=== PATIENT | female | born 1950 | race Two or more races ===

== ENCOUNTER 2019-04-08 16:29 | Emergency (ER) | payer MEDICAID ==
[~2019-04-08] VITALS: Ht 157.5 cm; Wt 68.0 kg
[2019-04-08 16:53] VITALS: BP 130/79
[2019-04-08] MEDS ORDERED: Tylenol #3 tab (300mg/30mg) ORAL ONE (17:00)
[2019-04-08] MEDS ORDERED: Ketorolac 30mg Inj IV ONE (17:00)
[2019-04-08] MEDS ORDERED: Methocarbamol 750mg tab ORAL ONE (17:00)
[2019-04-08] MEDS ORDERED: Gadavist 7.5mMol/7.5ml vial IV PRN (17:00)
[2019-04-08 17:45] LABS: BASOPHILS % (AUTO) 0.9 % (0.0-2.0); EOSINOPHILS % (AUTO) 1.5 % (0.0-3.0); HEMATOCRIT 45.4 % (37.0-47.0); HEMOGLOBIN 14.9 G/DL (12.0-16.0); LYMPHOCYTES % (AUTO) 20.7 % (20.0-45.0); MEAN CORPUSCULAR VOLUME 85 FL (80-99); MONOCYTES % (AUTO) 5.1 % (1.0-10.0); NEUTROPHILS % (AUTO) 71.8 % (45.0-75.0); PLATELET COUNT 347 K/UL (150-450); RED BLOOD COUNT 5.32 M/UL (4.20-5.40); RED CELL DISTRIBUTION WIDTH 11.7 % (11.6-14.8); WHITE BLOOD COUNT 11.9 K/UL (4.8-10.8)
[2019-04-08 18:00] LABS: ANION GAP 14 mmol/L (5-15); BLOOD UREA NITROGEN 19 mg/dL (7-18); CARBON DIOXIDE 27 MMOL/L (21-32); CHLORIDE 104 MMOL/L (98-107); CREATININE 0.9 MG/DL (0.55-1.30); POTASSIUM 3.8 MMOL/L (3.5-5.1); SODIUM 145 MMOL/L (136-145)
[2019-04-08 18:05] LABS: ALANINE AMINOTRANSFERASE 26 U/L (12-78); ALBUMIN 3.9 G/DL (3.4-5.0); ALKALINE PHOSPHATASE 141 U/L (46-116); ASPARTATE AMINO TRANSFERASE 21 U/L (15-37); BILIRUBIN,TOTAL 0.3 MG/DL (0.2-1.0)
--- NOTE | 2019-04-08 18:53 | Diagnostic Imaging Report ---
EXAM: MR Lumbar Spine With Intravenous Contrast CLINICAL HISTORY: PAIN TECHNIQUE: Magnetic resonance images of the lumbar spine with intravenous contrast in multiple planes. COMPARISON: None FINDINGS: Vertebrae: Unremarkable. No acute fracture. Spinal cord: Conus medullaris terminates normally at the level of T12- L1. Normal signal. No abnormal enhancement. Soft tissues: Unremarkable. DISCS/SPINAL CANAL/NEURAL FORAMINA: L1-L2: Disc bulge., Facet degenerative changes, and ligamentum flavum hypertrophy. No significant spinal canal stenosis. No significant neural foraminal stenosis. L2-L3: Disc bulge, facet degenerative changes, and ligamentum flavum hypertrophy. Mild spinal canal stenosis. Mild bilateral neural foraminal stenoses. L3-L4: Disc bulge, facet degenerative changes, and ligamentum flavum hypertrophy. Mild to moderate spinal canal stenosis. Mild bilateral neural foraminal stenoses. L4-L5: Disc bulge, facet degenerative changes, and ligamentum flavum hypertrophy. Moderate spinal canal stenosis. Mild bilateral neural foraminal stenoses. L5-S1: Disc bulge, facet degenerative changes, and ligamentum flavum hypertrophy. Mild spinal canal stenosis. Moderate left and mild right neural foraminal stenoses. IMPRESSION: 1. No acute fracture. 2. Degenerative changes of the spine as described above.
--- NOTE | 2019-04-08 18:59 | Emergency Room Report ---
History of Present Illness General Chief Complaint: Lower Back Pain or Injury Source: Patient Present Illness HPI 68-year-old female with no signal past medical history here complaining of lower back pain x1 week. Patient reports that she was coming down the steps of the ladder as she missed a step and landed wrong fully on her right foot. Denies any fall or injury from the ladder. Denies any head injury or loss of consciousness. Has not taken medication for symptom relief. Reports that ever since this occurred patient has been feeling numbness in her right foot. Rates the pain 10 out of 10 with radiation to right foot. Sitting comfortably with stable vital signs. Denies urinary or bowel incontinence. Denies saddle paresthesia. Denies all other injuries. Allergies: Coded Allergies: No Known Allergies (Unverified , 04/08/19) Patient History Past Medical History: see triage record Past Surgical History: none Pertinent Family History: none Now: No Immunizations: UTD Reviewed Nursing Documentation: PMH: Agreed; PSxH: Agreed Nursing Documentation-PMH Past Medical History: No Stated History Review of Systems All Other Systems: negative except mentioned in HPI Physical Exam Vital Signs Date Time Temp Pulse Resp B/P (MAP) Pulse Ox O2 Delivery O2 Flow Rate FiO2 04/08/19 16:38 97.9 96 17 130/79 (96) 99 Room Air Sp02 EP Interpretation: reviewed, normal General Appearance: no apparent distress, alert, GCS 15, non-toxic Head: normocephalic, atraumatic Eyes: bilateral eye normal inspection, bilateral eye PERRL ENT: hearing grossly normal, normal pharynx, no angioedema, normal voice Neck: full range of motion, supple, no meningismus, supple/symm/no masses Respiratory: chest non-tender, lungs clear, normal breath sounds, no rhonchi, no wheezing, speaking full sentences Cardiovascular #1: normal peripheral pulses, regular rate, rhythm, no edema, no murmur Cardiovascular #2: 2+ dorsalis pedis (R), 2+ dorsalis pedis (L) Gastrointestinal: normal bowel sounds, non tender, soft, non-distended, no guarding, no rebound Genitourinary: no CVA tenderness Musculoskeletal: back normal, normal range of motion, digits/nails normal, no calf tenderness, pelvis stable, gait/station normal, Shira's Sign negative, no lower extremity edema, non-tender Neurologic: alert, motor strength/tone normal, oriented x3, sensory intact, responsive, speech normal Psychiatric: judgement/insight normal, memory normal, mood/affect normal, no suicidal/homicidal ideation Skin: no rash Lymphatic: no adenopathy Medical Decision Making PA Attestation All diagnoses and treatment plans were reviewed and discussed with my supervising physician Dr. Prado Diagnostic Impression: Primary Impression: Lumbar strain ER Course 68-year-old female with no signal past medical history here complaining of lower back pain x1 week. Patient reports that she was coming down the steps of the ladder as she missed a step and landed wrong fully on her right foot. Denies any fall or injury from the ladder. Denies any head injury or loss of consciousness. Has not taken medication for symptom relief. Reports that ever since this occurred patient has been feeling numbness in her right foot. Rates the pain 10 out of 10 with radiation to right foot. Sitting comfortably with stable vital signs. Denies urinary or bowel incontinence. Denies saddle paresthesia. Denies all other injuries. Ddx considered but are not limited to: Lumbar spine sprain, strain, fracture, contusion, neuropathy Vital signs: are WNL, pt. is afebrile H&PE are most consistent with: Lumbar strain ORDERS: Lumbar spine MRI with contrast was ordered to rule out neuropathy as well as disc dislocation and compression on nerve due to patient numbness in foot. CBC, CMP, UA, Motrin, Robaxin, lidocaine patch ER intervention: Toradol, Robaxin, Tylenol 3 DISCHARGE: At this time pt. is stable for d/c to home. Will provide printed patient care instructions, and any necessary prescriptions. Care plan and follow up instructions have been discussed with the patient prior to discharge. Patient to follow-up with primary care provider and possible physical therapy and orthopedic physical therapist. At this time no signs of nerve compression noted. If worsening symptoms return to emergency room CT/MRI/US Diagnostic Results CT/MRI/US Diagnostic Results : Imaging Test Ordered: MRI L-spine with contrast Impression FINDINGS: Vertebrae: Unremarkable. No acute fracture. Spinal cord: Conus medullaris terminates normally at the level of T12-L1. Normal signal. No abnormal enhancement. Soft tissues: Unremarkable. DISCS/SPINAL CANAL/NEURAL FORAMINA: L1-L2: Disc bulge., Facet degenerative changes, and ligamentum flavum hypertrophy. No significant spinal canal stenosis. No significant neural foraminal stenosis. L2-L3: Disc bulge, facet degenerative changes, and ligamentum flavum hypertrophy. Mild spinal canal stenosis. Mild bilateral neural foraminal stenoses. L3-L4: Disc bulge, facet degenerative changes, and ligamentum flavum hypertrophy. Mild to moderate spinal canal stenosis. Mild bilateral neural foraminal stenoses. L4-L5: Disc bulge, facet degenerative changes, and ligamentum flavum hypertrophy. Moderate spinal canal stenosis. Mild bilateral neural foraminal stenoses. L5-S1: Disc bulge, facet degenerative changes, and ligamentum flavum hypertrophy. Mild spinal canal stenosis. Moderate left and mild right neural foraminal stenoses. IMPRESSION: 1. No acute fracture. 2. Degenerative changes of the spine as described above. Last Vital Signs Date Time Temp Pulse Resp B/P (MAP) Pulse Ox O2 Delivery O2 Flow Rate FiO2 04/08/19 16:53 97.9 86 17 130/79 99 Room Air Status: improved Disposition: HOME, SELF-CARE Condition: Stable Scripts Lidocaine Patch* (Lidoderm Patch*) 1 Each Adh..patch 1 PATCH TOPIC DAILY, #30 PATCH Patch(es) may remain in place for up to 12 hours in any 24-hour period. Prov: Abiodun Bennett 04/08/19 Methocarbamol* (ROBAXIN-500*) 500 Mg Tablet 500 MG ORAL TID PRN for For Pain, #15 TAB 0 Refills Prov: Abiodun Bennett 04/08/19 Ibuprofen* (MOTRIN*) 600 Mg Tablet 600 MG ORAL Q8H PRN for For Pain, #30 TAB 0 Refills Prov: Abiodun Bennett 04/08/19 Patient Instructions: Lumbosacral Strain Additional Instructions: Take medication as directed, follow-up with your primary care provider, increase oral hydration, avoid strenuous physical activity, if worsening symptoms return to the emergency room Abiodun Bennett Apr 08, 2019 18:59
[2019-04-08] MEDS ORDERED: IBUPROFEN600 MG ORAL (19:00)
[2019-04-08] MEDS ORDERED: LIDODERM700 M1 TOPIC (19:00)
[2019-04-08] MEDS ORDERED: ROBAXIN-500MG ORAL (19:00)
[2019-04-08 19:15] VITALS: BP 125/85
== END 2019-04-08 19:15 | disposition home or self-care (01) ==
LOC: EMR 16:55
DX: S39.012A Strain of muscle, fascia and tendon of lower back, initial encounter (principal); W10.9XXA Fall (on) (from) unspecified stairs and steps, initial encounter; Y92.9 Unspecified place or not applicable; R20.2 Paresthesia of skin
CPT/HCPCS: 36415; 72149; 80053; 85025; 96374; A9585; J1885; Z7502; 99284

== ENCOUNTER 2020-01-23 10:31 | Emergency (ER) | payer MEDICAID ==
[~2020-01-23] VITALS: Ht 165.1 cm; Wt 63.5 kg
[~2020-01-23 10:31] MED LIST: IBUPROFEN600 MG ORAL; LIDODERM700 M1 TOPIC; ROBAXIN-500MG ORAL
[2020-01-23 10:40] VITALS: BP 134/72
[2020-01-23] MEDS ORDERED: Meclizine 25mg tab ORAL PRN (11:00)
--- NOTE | 2020-01-23 11:15 | NUR ---
ED Nurse Note: PT. AAOX 4 AMBULATORY. PT. WALKED IN TO ER FROM HOME. PER PT., SHE WOKE UP 2AM TODAY AND STARTED GETTING DIZZY SOON SHE TRIED STANDING UP FAST ON HER WAY TO BATHROOM. PT. DENIES CP OR ANY PAIN BUT FELT PRESSURE ON THE R SIDE OF HER HEAD.
--- NOTE | 2020-01-23 11:24 | NUR ---
ED Nurse Note: PT. WAS MEDICATED AND LIGHT IN THE ROOM TURNED OFF TO LESSEN ENVIRONMENTAL STIMILUS. NO S/S OF ACUTE DISTRESS NOTED AT THIS TIME.
--- NOTE | 2020-01-23 11:30 | NUR ---
ED Nurse Note:blood sent to labs
[2020-01-23 11:48] LABS: BASOPHILS % (AUTO) 1.1 % (0.0-2.0); EOSINOPHILS % (AUTO) 0.1 % (0.0-3.0); HEMATOCRIT 42.3 % (37.0-47.0); HEMOGLOBIN 14.4 G/DL (12.0-16.0); LYMPHOCYTES % (AUTO) 11.5 % (20.0-45.0); MEAN CORPUSCULAR VOLUME 84 FL (80-99); NEUTROPHILS % (AUTO) 82.4 % (45.0-75.0); PLATELET COUNT 273 K/UL (150-450); RED BLOOD COUNT 5.03 M/UL (4.20-5.40); RED CELL DISTRIBUTION WIDTH 13.9 % (11.6-14.8); WHITE BLOOD COUNT 8.9 K/UL (4.8-10.8)
[2020-01-23 12:00] LABS: ANION GAP 5 mmol/L (5-15); BLOOD UREA NITROGEN 13 mg/dL (7-18); CALCIUM 9.4 MG/DL (8.5-10.1); CARBON DIOXIDE 32 MMOL/L (21-32); CHLORIDE 104 MMOL/L (98-107); CREATININE 0.8 MG/DL (0.55-1.30); SODIUM 141 MMOL/L (136-145)
[2020-01-23 12:05] LABS: ALANINE AMINOTRANSFERASE 26 U/L (12-78); ALBUMIN 3.8 G/DL (3.4-5.0); ALKALINE PHOSPHATASE 115 U/L (46-116); ASPARTATE AMINO TRANSFERASE 22 U/L (15-37); BILIRUBIN,TOTAL 0.8 MG/DL (0.2-1.0)
[2020-01-23] MEDS ORDERED: MECLIZINE HCL25 MG ORAL (12:12)
--- NOTE | 2020-01-23 12:13 | Emergency Room Report ---
History of Present Illness General Chief Complaint: Dizziness Source: Patient Present Illness HPI Disclaimer: Please note that this report is being documented using [employer] technology. This can lead to erroneous entry secondary to incorrect interpretation by the dictating instrument. HPI: History of hyperlipidemia presenting for evaluation of dizziness. Patient states while getting up from a seated position she turned her head to the right and had a sudden onset severe spinning sensation. She felt as if everything was moving to the right side. Symptoms were intense in onset and then gradually resolved over 10 minutes. She had 2 similar episodes today. She denies significant headache. She denies head trauma. The symptoms appear to be triggered by head motion and position. Denies loss of hearing but reports intermittent tinnitus in the right ear. Denies ear pain or drainage. Denies chest pain, palpitations, near syncope, nausea, vomiting, diarrhea or recent changes in her health. States she has had vertigo in the past but did not seek medical attention at this time and has not happened for several years. Symptoms are currently resolved and patient has no complaints at this time. PMH: Hyperlipidemia PSH: Reviewed Allergies: Denied Social Hx: Denies drug or alcohol use Allergies: Coded Allergies: No Known Allergies (Unverified , 04/08/19) COVID-19 Screening Contact w/high risk pt: No Experienced COVID-19 symptoms?: No COVID-19 Testing performed HVAC SERVICE TECHNICIAN: No Review of Systems All Other Systems: negative except mentioned in HPI Physical Exam Vital Signs Date Time Temp Pulse Resp B/P (MAP) Pulse Ox O2 Delivery O2 Flow Rate FiO2 01/23/20 10:40 97.9 78 18 134/72 (92) 98 Room Air General: Awake and alert, no acute distress HEENT: NC/AT. EOMI. PERRLA. External auditory canals unremarkable. Tympanic membranes are pearly quinteros, nonbulging, nonerythematous, no effusions. No vertical or horizontal nystagmus. Cardiovascular: RRR. S1 and S2 normal. No murmur appreciated Resp: Normal work of breathing. No cough, wheezing or crackles appreciated Abdomen: Abdomen is soft, nondistended. Nontender Skin: Intact. No abrasions, laceration or rash over the exposed skin MSK: Normal tone and bulk. Moving all extremities. No obvious deformity. Neuro: Awake and alert. Mentating appropriately. Medical Decision Making Diagnostic Impression: Primary Impression: Vertigo ER Course Is a 69-year-old female presenting for evaluation of sudden onset spinning sensation. Differential includes was not limited to peripheral vertigo, central vertigo, Mnire's disease, otitis media, electrolyte abnormality, ACS, dehydration, space-occupying mass among others. Most consistent with BPPV or Mnire's disease. Less clinical concern for central lesion given the patient's unremarkable neurologic exam, sudden onset of symptoms and overall well appearance without headaches or other changes in mental neuro status. Otherwise neurologically intact. Labs have returned within normal limits. The patient was treated with meclizine and is feeling well. Will continue on meclizine as outpatient basis and have her follow-up with her PMD. She had an appointment to follow-up with PMD in March but I strongly encouraged her to call for sooner appointment. Encouraged her to return to the emergency department new or worsening symptoms. She understands and agrees with this treatment plan. Laboratory Tests Test 01/23/20 11:07 White Blood Count 8.9 K/UL (4.8-10.8) Red Blood Count 5.03 M/UL (4.20-5.40) Hemoglobin 14.4 G/DL (12.0-16.0) Hematocrit 42.3 % (37.0-47.0) Mean Corpuscular Volume 84 FL (80-99) Mean Corpuscular Hemoglobin 28.6 PG (27.0-31.0) Mean Corpuscular Hemoglobin Concent 34.0 G/DL (32.0-36.0) Red Cell Distribution Width 13.9 % (11.6-14.8) Platelet Count 273 K/UL (150-450) Mean Platelet Volume 7.3 FL (6.5-10.1) Neutrophils (%) (Auto) 82.4 % (45.0-75.0) H Lymphocytes (%) (Auto) 11.5 % (20.0-45.0) L Monocytes (%) (Auto) 5.0 % (1.0-10.0) Eosinophils (%) (Auto) 0.1 % (0.0-3.0) Basophils (%) (Auto) 1.1 % (0.0-2.0) Sodium Level 141 MMOL/L (136-145) Potassium Level 4.0 MMOL/L (3.5-5.1) Chloride Level 104 MMOL/L (98-107) Carbon Dioxide Level 32 MMOL/L (21-32) Anion Gap 5 mmol/L (5-15) Blood Urea Nitrogen 13 mg/dL (7-18) Creatinine 0.8 MG/DL (0.55-1.30) Estimated Glomerular Filtration Rate > 60 mL/min (>60) Glucose Level 133 MG/DL (74-106) H Calcium Level 9.4 MG/DL (8.5-10.1) Total Bilirubin 0.8 MG/DL (0.2-1.0) Aspartate Amino Transferase (AST) 22 U/L (15-37) Alanine Aminotransferase (ALT) 26 U/L (12-78) Alkaline Phosphatase 115 U/L (46-116) Troponin I 0.005 ng/mL (0.000-0.056) Total Protein 7.6 G/DL (6.4-8.2) Albumin 3.8 G/DL (3.4-5.0) Globulin 3.8 g/dL Albumin/Globulin Ratio 1.0 (1.0-2.7) EKG Diagnostic Results Troponin ordered: Yes When was troponin ordered?: Jan 23, 2020 EKG Time: 10:55 Rate: normal Rhythm: NSR ST Segments: no acute changes Other Impression Sinus rhythm, normal axis, normal intervals, no ST segment changes. Rhythm Strip Diag. Results Rhythm Strip Time: 10:55 EP Interpretation: yes Rate: 70s Rhythm: NSR, no PVC's, no ectopy Last Vital Signs Date Time Temp Pulse Resp B/P (MAP) Pulse Ox O2 Delivery O2 Flow Rate FiO2 01/23/20 10:40 78 18 Room Air 01/23/20 10:40 97.9 134/72 98 Disposition: HOME, SELF-CARE Condition: Stable Scripts Meclizine Hcl* (MECLIZINE*) 25 Mg Tablet 25 MG ORAL THREE TIMES A DAY PRN for for dizziness for 5 Days, #20 TAB Prov: Umberto Ovalles MD 01/23/20 Referrals: [facility] Patient Instructions: Vertigo, Meniere Disease Additional Instructions: Please follow-up with your primary care doctor in the next 1 to 3 days to discuss this emergency department visit and for reevaluation. If you have any new or worsening symptoms please return to the emergency department for reevaluation. Please note that this report is being documented using [employer] technology. This can lead to erroneous entry secondary to incorrect interpretation by the dictating instrument. Umberto Ovalles MD Jan 23, 2020 12:13
[2020-01-23 12:30] VITALS: BP 134/72
--- NOTE | 2020-01-23 12:30 | NUR ---
ED Nurse Note: Pt cleared by health care Provider for discharge. DC instructions/prescription was given and explained to pt and verbalized understanding of teachings. All medical deviecs such as ID band removed. Pt is AAO x4, ambulatory and left with all personal belongings.
== END 2020-01-23 12:30 | disposition home or self-care (01) ==
LOC: EMR 10:55
DX: R42 Dizziness and giddiness (principal); E78.5 Hyperlipidemia, unspecified
CPT/HCPCS: 36415; 80053; 84484; 85025; 93005; Z7502; 99284

== ENCOUNTER 2020-03-25 15:33 | Inpatient (IN) | payer MEDICAID ==
[~2020-03-25] VITALS: Ht 162.6 cm; Wt 65.8 kg
[~2020-03-25 15:33] MED LIST changes: +Enoxaparin 60mg Inj SUBQ SCH; +MECLIZINE HCL25 MG ORAL
--- NOTE | 2020-03-25 16:04 | Emergency Room Report ---
History of Present Illness General Chief Complaint: Pain Source: Patient Present Illness HPI Disclaimer: Please note that this report is being documented using [employer] technology. This can lead to erroneous entry secondary to incorrect interpretation by the dictating instrument. HPI: 69-year-old female with no reported medical history presents for evaluation of decreased appetite and back pain. Patient states she had a large cyst removed from her back many years ago and has pain in the right mid scapular region starting yesterday afternoon. Feels tight and cramping. Exacerbated by bending and twisting motion and moving her arms. No trauma reported. Denies pain in the middle of the back, weakness, numbness, tingling, urinary retention, fecal incontinence. Denies fever or chills. Reports cough and recent exposure to sick people in her building. Reports loss of taste and smell. Reports decreased appetite and mild diarrhea. Reports nausea but no vomiting. Denies chest pain or palpitations. No recent Covid test. PMH: Denied PSH: Cyst removal Allergies: Reviewed Social Hx: Non-smoker Allergies: Coded Allergies: No Known Allergies (Unverified , 04/08/19) COVID-19 Screening Contact w/high risk pt: Yes Experienced COVID-19 symptoms?: Yes COVID-19 Testing performed SOCIOLOGY TEACHER: No Nursing Documentation-PMH Past Medical History: No Stated History Review of Systems All Other Systems: negative except mentioned in HPI Physical Exam Vital Signs Date Time Temp Pulse Resp B/P (MAP) Pulse Ox O2 Delivery O2 Flow Rate FiO2 03/25/20 15:39 100.8 125 24 132/68 (89) 90 Room Air General: Awake and alert, no acute distress, mild fever, anxious appearing HEENT: NC/AT. EOMI. dry mucous membranes. Cardiovascular: Tachycardic. S1 and S2 normal. No murmur appreciated Resp: Normal work of breathing. No cough or wheezing during exam. Mild crackles bilaterally. Abdomen: Abdomen is soft, nondistended. Nontender Skin: Intact. No abrasions, laceration or rash over the exposed skin MSK: Normal tone and bulk. Moving all extremities. No obvious deformity. Neuro: Awake and alert. Mentating appropriately. Procedures Critical Care Time Critical Care Time Total critical care time: Approximately 45 minutes Due to a high probability of clinically significant, life threatening deterioration, the patient required the highest level of preparedness to intervene emergently and I personally spent this critical care time directly and personally managing the patient. This critical care time included obtaining a history, examining the patient, pulse oximetry, ordering and reviewing studies, ordering treatments, evaluating response to treatment and updating management plan as needed, frequent reassessment and discussion with other providers as well as arranging for ultimate disposition. This critical to care time was performed to assess and manage the high probability of life-threatening deterioration that could result in multiorgan failure. This critical care time is separate from the separately billable procedures and treating other patients. Medical Decision Making Diagnostic Impression: Primary Impression: Pneumonia Additional Impressions: Suspected 2019 novel coronavirus infection Elevated d-dimer Pulmonary embolism Thyroid nodule ER Course 69-year-old female presents for evaluation of loss of taste and smell, cough, myalgias and weakness. Concern for viral syndrome, pneumonia, COVID-19 infection, dehydration, gastritis among others. Chest x-ray concerning for righ t lower lobe pneumonia. Inflammatory markers elevated. Covid swab sent will not be today. D-dimer elevated and patient given Lovenox. Given ceftriaxone azithromycin. Patient be admitted to panel physician, Dr. Moore. CTA noted to show right segmental pulmonary embolism extending to the subsegmental pulmonary arteries. No heart strain noted. Also some airspace disease in the right base noted as well as bilateral thyroid nodules Laboratory Tests Test 03/25/20 16:00 03/25/20 16:24 Urine Color Yellow Urine Appearance Slightly cloudy Urine pH 6.5 (4.5-8.0) Urine Specific Coleman 1.010 (1.005-1.035) Urine Protein 1+ (NEGATIVE) H Urine Glucose (UA) 3+ (NEGATIVE) H Urine Ketones Negative (NEGATIVE) Urine Blood 2+ (NEGATIVE) H Urine Nitrite Negative (NEGATIVE) Urine Bilirubin Negative (NEGATIVE) Urine Urobilinogen 1 MG/DL (0.0-1.0) H Urine Leukocyte Esterase Negative (NEGATIVE) Urine RBC 5-10 /HPF (0 - 2) H Urine WBC 0-2 /HPF (0 - 2) Urine Squamous Epithelial Cells Many /LPF (NONE/OCC) H Urine Bacteria Few /HPF (NONE) Urine Yeast Few /HPF (NONE) H White Blood Count 16.9 K/UL (4.8-10.8) H Red Blood Count 4.84 M/UL (4.20-5.40) Hemoglobin 13.3 G/DL (12.0-16.0) Hematocrit 41.1 % (37.0-47.0) Mean Corpuscular Volume 85 FL (80-99) Mean Corpuscular Hemoglobin 27.4 PG (27.0-31.0) Mean Corpuscular Hemoglobin Concent 32.3 G/DL (32.0-36.0) Red Cell Distribution Width 12.3 % (11.6-14.8) Platelet Count 356 K/UL (150-450) Mean Platelet Volume 6.4 FL (6.5-10.1) L Neutrophils (%) (Auto) 82.9 % (45.0-75.0) H Lymphocytes (%) (Auto) 7.6 % (20.0-45.0) L Monocytes (%) (Auto) 8.5 % (1.0-10.0) Eosinophils (%) (Auto) 0.1 % (0.0-3.0) Basophils (%) (Auto) 0.9 % (0.0-2.0) Prothrombin Time 12.3 SEC (9.30-11.50) H Prothrombin Time INR 1.1 (0.9-1.1) Activated Partial Thromboplast Time 33 SEC (23-33) D-Dimer 14.26 mg/L FEU (0.00-0.49) H Sodium Level 138 MMOL/L (136-145) Potassium Level 3.7 MMOL/L (3.5-5.1) Chloride Level 100 MMOL/L (98-107) Carbon Dioxide Level 31 MMOL/L (21-32) Anion Gap 7 mmol/L (5-15) Blood Urea Nitrogen 10 mg/dL (7-18) Creatinine 0.9 MG/DL (0.55-1.30) Estimated Glomerular Filtration Rate > 60 mL/min (>60) Glucose Level 148 MG/DL (74-106) H Lactic Acid Level Pending Calcium Level 9.5 MG/DL (8.5-10.1) Phosphorus Level 2.9 MG/DL (2.5-4.9) Magnesium Level 2.1 MG/DL (1.8-2.4) Ferritin 565 NG/ML (8-388) H Total Bilirubin 1.1 MG/DL (0.2-1.0) H Direct Bilirubin 0.2 MG/DL (0.0-0.3) Aspartate Amino Transferase (AST) 31 U/L (15-37) Alanine Aminotransferase (ALT) 33 U/L (12-78) Alkaline Phosphatase 91 U/L (46-116) Lactate Dehydrogenase 284 U/L (81-234) H Total Creatine Kinase 50 U/L (26-308) Creatine Kinase MB < 0.5 NG/ML (0.0-3.6) Creatine Kinase MB Relative Index 1.0 Troponin I 0.000 ng/mL (0.000-0.056) C-Reactive Protein, Quantitative 21.5 mg/dL (0.00-0.90) H Pro-B-Type Natriuretic Peptide 129 pg/mL (0-125) H Total Protein 7.7 G/DL (6.4-8.2) Albumin 2.9 G/DL (3.4-5.0) L Globulin 4.8 g/dL Albumin/Globulin Ratio 0.6 (1.0-2.7) L Lipase 83 U/L (73-393) EKG Diagnostic Results Troponin ordered: Yes When was troponin ordered?: Mar 25, 2020 EKG Time: 19:25 Rate: normal Rhythm: NSR ST Segments: no acute changes Other Impression Sinus rhythm, normal axis, normal intervals, no ST segment changes. Rhythm Strip Diag. Results Rhythm Strip Time: 19:25 EP Interpretation: yes Rate: 90s Rhythm: NSR, no PVC's, no ectopy Chest X-Ray Diagnostic Results Chest X-Ray Diagnostic Results : Chest X-Ray Ordered: Yes # of Views/Limited/Complete: 1 View Indication: Chest Pain EP Interpretation: Yes Interpretation: no effusion, no pneumothorax, other - Right lower lobe pneumonia Impression: Other - Right lower lobe pneumonia Electronically Signed by: Electronically signed by Dr. Umberto Ovalles MD Last Vital Signs Date Time Temp Pulse Resp B/P (MAP) Pulse Ox O2 Delivery O2 Flow Rate FiO2 03/25/20 15:39 100.8 125 24 132/68 (89) 90 Room Air Disposition: ADMITTED INPATIENT Condition: Serious Umberto Ovalles MD Mar 25, 2020 16:04
[2020-03-25] MEDS ORDERED: Acetaminophen 500mg (ES) tab ORAL ONE (16:15)
[2020-03-25] MEDS ORDERED: cefTRIAXone 1 GM in NS 55 ML IV ONE (16:30)
[2020-03-25] MEDS ORDERED: Azithromycin 500 MG in NS 275 ML IVPB ONE (16:30)
--- NOTE | 2020-03-25 16:30 | Diagnostic Imaging Report ---
EXAM: XR Chest, 1 View CLINICAL HISTORY: SOB TECHNIQUE: Frontal view of the chest. COMPARISON: No relevant prior studies available. FINDINGS: Lungs: Opacification of the right costophrenic angle. Pleural space: Obscuration and elevation of the right greater than left costophrenic angles. No pneumothorax. Heart: Unremarkable. No cardiomegaly. Mediastinum: Unremarkable. Bones/joints: Unremarkable. IMPRESSION: Obscuration of the right greater than left costophrenic angles representing small pleural effusion and/or atelectasis. Underlying infectious process is not definitely excluded. Recommend clinical correlation.
--- NOTE | 2020-03-25 16:40 | NUR ---
ED Nurse Note: pt labs drawn & sent, IV started, pt urine sent, pt medication with fluids infusing. moved from OB to room 8 for monitoring. primary rn now sonido.
[2020-03-25 16:44] LABS: APPEARANCE,URINE SLIGHTLY CLOUDY; BILIRUBIN, URINE NEGATIVE (NEGATIVE); GLUCOSE, URINE (UA) 3+ (NEGATIVE); KETONES,URINE NEGATIVE (NEGATIVE); LEUKOCYTE ESTERASE ,URINE NEGATIVE (NEGATIVE); NITRITE,URINE NEGATIVE (NEGATIVE); PH,URINE 6.5 (4.5-8.0); PROTEIN,URINE 1+ (NEGATIVE); UROBILINOGEN,URINE 1 MG/DL (0.0-1.0)
[2020-03-25 16:45] LABS: BASOPHILS % (AUTO) 0.9 % (0.0-2.0); EOSINOPHILS % (AUTO) 0.1 % (0.0-3.0); HEMATOCRIT 41.1 % (37.0-47.0); HEMOGLOBIN 13.3 G/DL (12.0-16.0); LYMPHOCYTES % (AUTO) 7.6 % (20.0-45.0); MEAN CORPUSCULAR VOLUME 85 FL (80-99); MONOCYTES % (AUTO) 8.5 % (1.0-10.0); NEUTROPHILS % (AUTO) 82.9 % (45.0-75.0); PLATELET COUNT 356 K/UL (150-450); RED BLOOD COUNT 4.84 M/UL (4.20-5.40); RED CELL DISTRIBUTION WIDTH 12.3 % (11.6-14.8); WHITE BLOOD COUNT 16.9 K/UL (4.8-10.8)
[2020-03-25 16:47] LABS: COLOR,URINE YELLOW
[2020-03-25 16:52] LABS: INR 1.1 (0.9-1.1)
[2020-03-25 16:59] LABS: ANION GAP 7 mmol/L (5-15); BLOOD UREA NITROGEN 10 mg/dL (7-18); CALCIUM 9.5 MG/DL (8.5-10.1); CARBON DIOXIDE 31 MMOL/L (21-32); CHLORIDE 100 MMOL/L (98-107); CREATININE 0.9 MG/DL (0.55-1.30); POTASSIUM 3.7 MMOL/L (3.5-5.1); SODIUM 138 MMOL/L (136-145)
[2020-03-25 17:09] LABS: ALANINE AMINOTRANSFERASE 33 U/L (12-78); ALBUMIN 2.9 G/DL (3.4-5.0); ALBUMIN/GLOBULIN RATIO 0.6 (1.0-2.7); ALKALINE PHOSPHATASE 91 U/L (46-116); ASPARTATE AMINO TRANSFERASE 31 U/L (15-37); BILIRUBIN,TOTAL 1.1 MG/DL (0.2-1.0)
[2020-03-25 17:15] LABS: BILIRUBIN,DIRECT 0.2 MG/DL (0.0-0.3); CKMB < 0.5 NG/ML (0.0-3.6); CREATINE KINASE 50 U/L (26-308); FERRITIN 565 NG/ML (8-388); LACTATE DEHYDROGENASE 284 U/L (81-234); PHOSPHORUS 2.9 MG/DL (2.5-4.9)
[2020-03-25] MEDS ORDERED: Enoxaparin 40mg Inj SUBQ ONE (17:30)
--- NOTE | 2020-03-25 19:00 | NUR ---
ED Nurse Note: rcvd pt from primary nurse. pt had not been administered antibiotics as of yet. pt resting comfortably on stretcher, vs wnl. pt on 2L NC. pt states she only has mild discomfort due to stretcher and rates it 2/10. Pt daughter wanted to know why pt was receiving meds and with pts consent, explained to daughter what was going on with her mother. will continue to monitor pt. belongings list complete
--- NOTE | 2020-03-25 19:10 | NUR ---
ED Nurse Note:went into pt's room to give antibiotics for her nurse. asked pt if she had any allergies and pt said no she didn't think so. informed pt that she has on her medical chart that she has NKDA. pt stated that she would call her daughter and ask her. daughter on the phone, asking multiple questions in regards to medications. spelled each antibiotic so she could look them up. daughter stated that her mother didn't have any allergies that she knew of. daughter asking specific questions in regards to pt. informed daughter that this RN was administering meds for pt's nurse. daughter stated to not give pt any medications until her mom's nurse calls and updates her on her status. reported conversation with RONAL and he stated okay.
[2020-03-25] MEDS ORDERED: Omnipaque 350 100ml vial INJ PRN (20:00)
--- NOTE | 2020-03-25 20:43 | Diagnostic Imaging Report ---
EXAM: CT Angiography Chest With Intravenous Contrast CLINICAL HISTORY: PE TECHNIQUE: Axial computed tomographic angiography images of the chest with intravenous contrast. CTDI is 31.30 mGy and DLP is 145.60 mGy-cm. One or more of the following dose reduction techniques were used: automated exposure control, adjustment of the mA and/or kV according to patient size, use of iterative reconstruction technique. MIP reconstructed images were created and reviewed. Coronal and sagittal reformatted images were created and reviewed. COMPARISON: Chest radiograph dated 03/25/2020. FINDINGS: Pulmonary arteries: Right-sided pulmonary emboli are present. There is a large pulmonary embolism within the posterior basal segmental arteries extending into the subsegmental pulmonary arteries. Consolidation of the left lung base, likely sequela of ischemia from pulmonary embolus. Aorta: No acute findings. No thoracic aortic aneurysm. Lungs: Left lung base atelectasis. No mass. Pleural space: Unremarkable. No significant effusion. No pneumothorax. Heart: Unremarkable. No cardiomegaly. No significant pericardial effusion. No evidence of RV dysfunction. Thyroid: 10 mm nodule of the right thyroid lobe. 5 mm nodule of the left thyroid lobe. Bones/joints: Endplate exam changes of the visualized spine. No acute fracture. No dislocation. Soft tissues: Unremarkable. Lymph nodes: Unremarkable. No enlarged lymph nodes. IMPRESSION: 1. Right posterior basal segmental pulmonary embolism extending into the subsegmental pulmonary arteries. No evidence of right heart strain. 2. Right lung base airspace opacities likely sequela of ischemia from pulmonary embolism. 3. Left lung base atelectasis. Underlying concomitant infectious process is not definitively excluded. 4. Bilateral thyroid nodules. Consider nonemergent thyroid ultrasound for further evaluation. <MYCVCSECTION> Communications: 03/25/20 20:56 Call Doctor Regarding Pulmonary Embolism, called Dr. Ovalles on 03/25 20:56 (-08:00)
[2020-03-25 22:59] VITALS: BP 116/68
--- NOTE | 2020-03-25 23:05 | NUR ---
TRANSFER TO FLOOR: pt A&Ox3, vs wnl, breathing without complications on 2LNC. pt c/o discomfort at 2/10 in lower back. report given to AARON Harris. Patient transferred to [facility] as ordered, per ED MD . Report given to AARON Harris. Belongings documented and given to pt.
--- NOTE | 2020-03-25 23:20 | NUR ---
NURSE NOTES: Received pt from ED via gurney. Pt transferred to [facility] without any incident. Received report from AARON Pelayo. Pt is A/Ox4. Oriented pt to unit and room. bus driver/monitor is in placed; pt is ST (106 bpm). IV site intact, asymptomatic, and patent. Belongings list checked and signed. Bed is in the lowest position and locked. Call light and bedside table is within reach. No signs/symptoms of acute distress noted. Will contact MD for admission orders.
[2020-03-25 23:30] VITALS: BP 124/70
--- NOTE | 2020-03-25 23:48 | NUR ---
NURSE NOTES: Received admission orders from Dr. Aldana. Will note and carry out.
[2020-03-26 04:00] VITALS: BP 110/63
--- NOTE | 2020-03-26 06:13 | NUR ---
NURSE NOTES: Notified Dr. Moore and Dr. Aldana regarding PE on CTA. Dr. Aldana ordered Lovenox subQ BID and bilateral lower extremities venous duplex. Noted.
--- NOTE | 2020-03-26 06:29 | Consultation ---
History of Present Illness General Chief Complaint: Pain Present Illness Allergies: Coded Allergies: No Known Allergies (Unverified , 04/08/19) Medication History Scheduled Lidocaine Patch* (Lidoderm Patch*), 1 PATCH TOPIC DAILY Scheduled PRN Ibuprofen (Motrin), 600 MG ORAL Q8H PRN for For Pain Meclizine Hcl* (Meclizine*), 25 MG ORAL THREE TIMES A DAY PRN for for dizziness Methocarbamol* (Robaxin-500*), 500 MG ORAL TID PRN for For Pain Patient History Healthcare decision maker Resuscitation status Advanced Directive on File Physical Exam Last 24 Hour Vital Signs Date Time Temp Pulse Resp B/P (MAP) Pulse Ox O2 Delivery O2 Flow Rate FiO2 03/26/20 04:00 117 03/26/20 04:00 99.1 107 22 110/63 (79) 97 03/25/20 23:31 Nasal Cannula 2.0 03/25/20 23:30 98.9 105 22 124/70 (88) 99 03/25/20 23:23 112 03/25/20 23:07 100.1 112 21 110/54 98 Nasal Cannula 2.0 03/25/20 22:59 100.1 110 21 116/68 98 Nasal Cannula 2.0 03/25/20 15:39 100.8 125 24 132/68 (89) 90 Room Air Intake and Output 03/25/20 03/26/20 19:00 07:00 Intake Total 1320 ml Balance 1320 ml Intake Oral 320 ml IV Total 1000 ml # Voids 1 Laboratory Tests Test 03/25/20 16:00 03/25/20 16:24 Urine Color Yellow Urine Appearance Slightly cloudy Urine pH 6.5 (4.5-8.0) Urine Specific [place] 1.010 (1.005-1.035) Urine Protein 1+ (NEGATIVE) H Urine Glucose (UA) 3+ (NEGATIVE) H Urine Ketones Negative (NEGATIVE) Urine Blood 2+ (NEGATIVE) H Urine Nitrite Negative (NEGATIVE) Urine Bilirubin Negative (NEGATIVE) Urine Urobilinogen 1 MG/DL (0.0-1.0) H Urine Leukocyte Esterase Negative (NEGATIVE) Urine RBC 5-10 /HPF (0 - 2) H Urine WBC 0-2 /HPF (0 - 2) Urine Squamous Epithelial Cells Many /LPF (NONE/OCC) H Urine Bacteria Few /HPF (NONE) Urine Yeast Few /HPF (NONE) H White Blood Count 16.9 K/UL (4.8-10.8) H Red Blood Count 4.84 M/UL (4.20-5.40) Hemoglobin 13.3 G/DL (12.0-16.0) Hematocrit 41.1 % (37.0-47.0) Mean Corpuscular Volume 85 FL (80-99) Mean Corpuscular Hemoglobin 27.4 PG (27.0-31.0) Mean Corpuscular Hemoglobin Concent 32.3 G/DL (32.0-36.0) Red Cell Distribution Width 12.3 % (11.6-14.8) Platelet Count 356 K/UL (150-450) Mean Platelet Volume 6.4 FL (6.5-10.1) L Neutrophils (%) (Auto) 82.9 % (45.0-75.0) H Lymphocytes (%) (Auto) 7.6 % (20.0-45.0) L Monocytes (%) (Auto) 8.5 % (1.0-10.0) Eosinophils (%) (Auto) 0.1 % (0.0-3.0) Basophils (%) (Auto) 0.9 % (0.0-2.0) Prothrombin Time 12.3 SEC (9.30-11.50) H Prothromb Time International Ratio 1.1 (0.9-1.1) Activated Partial Thromboplast Time 33 SEC (23-33) D-Dimer 14.26 mg/L FEU (0.00-0.49) H Sodium Level 138 MMOL/L (136-145) Potassium Level 3.7 MMOL/L (3.5-5.1) Chloride Level 100 MMOL/L (98-107) Carbon Dioxide Level 31 MMOL/L (21-32) Anion Gap 7 mmol/L (5-15) Blood Urea Nitrogen 10 mg/dL (7-18) Creatinine 0.9 MG/DL (0.55-1.30) Estimat Glomerular Filtration Rate > 60 mL/min (>60) Glucose Level 148 MG/DL (74-106) H Lactic Acid Level 1.80 mmol/L (0.4-2.0) Calcium Level 9.5 MG/DL (8.5-10.1) Phosphorus Level 2.9 MG/DL (2.5-4.9) Magnesium Level 2.1 MG/DL (1.8-2.4) Ferritin 565 NG/ML (8-388) H Total Bilirubin 1.1 MG/DL (0.2-1.0) H Direct Bilirubin 0.2 MG/DL (0.0-0.3) Aspartate Amino Transf (AST/SGOT) 31 U/L (15-37) Alanine Aminotransferase (ALT/SGPT) 33 U/L (12-78) Alkaline Phosphatase 91 U/L (46-116) Lactate Dehydrogenase 284 U/L (81-234) H Total Creatine Kinase 50 U/L (26-308) Creatine Kinase MB < 0.5 NG/ML (0.0-3.6) Creatine Kinase MB Relative Index 1.0 Troponin I 0.000 ng/mL (0.000-0.056) C-Reactive Protein, Quantitative 21.5 mg/dL (0.00-0.90) H Pro-B-Type Natriuretic Peptide 129 pg/mL (0-125) H Total Protein 7.7 G/DL (6.4-8.2) Albumin 2.9 G/DL (3.4-5.0) L Globulin 4.8 g/dL Albumin/Globulin Ratio 0.6 (1.0-2.7) L Lipase 83 U/L (73-393) Microbiology Date/Time Source Procedure Growth Status 03/25/20 20:30 Nasal Nares - Final Complete 03/25/20 20:30 Nasal Nares - Final Complete Height (Feet): 5 Height (Inches): 4.00 Weight (Pounds): 145 Medications Current Medications Medications (Trade) Dose Ordered Sig/Magda Route PRN Reason Start Time Stop Time Status Last Admin Dose Admin Acetaminophen (Tylenol) 650 mg Q6H PRN ORAL Mild Pain/Fever 100.5 F 03/26/20 00:00 04/25/20 00:00 Enoxaparin Sodium (Lovenox) 60 mg EVERY 12 HOURS SUBQ 03/26/20 09:00 06/24/20 08:59 Guaifenesin/ Dextromethorphan (Robitussin DM Syrup) 15 ml Q6H PRN ORAL For Cough 03/26/20 03:00 06/24/20 02:59 Ibuprofen (Motrin) 600 mg Q8H PRN ORAL For Pain 03/26/20 00:00 04/25/20 00:00 03/26/20 02:14 Iohexol (Omnipaque 350 100ml) 100 ml NOW PRN INJ Radiology Procedure 03/25/20 20:00 03/27/20 19:59 Assessment/Plan Assessment/Plan: Hematology Consultation REGómez MD: Mukul Moore DOS: 03/26/2020 RFC: Anemia ID 69-year-old female with no reported medical history presents for evaluation of decreased appetite and back pain. Patient states she had a large cyst removed from her back many years ago and has pain in the right mid scapular region starting yesterday afternoon. Feels tight and cramping. Exacerbated by bending and twisting motion and moving her arms. No trauma reported. Denies pain in the middle of the back, weakness, numbness, tingling, urinary retention, fecal incontinence. Denies fever or chills. Reports cough and recent exposure to sick people in her building. Reports loss of taste and smell. Reports decreased appetite and mild diarrhea. Reports nausea but no vomiting. Denies chest pain or palpitations. No recent Covid test. PMH: Denied PSH: Cyst removal Allergies: Reviewed Social Hx: Non-smoker Allergies: Coded Allergies: No Known Allergies (Unverified , 04/08/19) COVID-19 Screening Contact w/high risk pt: Yes Experienced COVID-19 symptoms?: Yes COVID-19 Testing performed PLANNING MANAGER: No Nursing Documentation-PMH Past Medical History: No Stated History Review of Systems All Other Systems: negative except mentioned in HPI Physical Exam General: Awake and alert, no acute distress, mild fever, anxious appearing HEENT: NC/AT. EOMI. dry mucous membranes. Cardiovascular: Tachycardic. S1 and S2 normal. No murmur appreciated Resp: Normal work of breathing. No cough or wheezing during exam. ++crackles bilaterally. Abdomen: Abdomen is soft, nondistended. Nontender Skin: Intact. No abrasions, laceration or rash over the exposed skin MSK: Normal tone and bulk. Moving all extremities. Neuro: Awake and alert. Mentating appropriately. Labs: reviewed Imaging: noted Assessment and Recs # Right posterior basal segmental pulmonary embolism extending into the subsegmental pulmonary arteries. No evidence of right heart strain. Right lung base airspace opacities likely sequela of ischemia from pulmonary embolism. --> anticoagulation has been started lovenox bid --> r/o bleeding --> venous duplex lower legs ordered --> hypercoag w/u not needed due to age # Elevated ddimer r/o infection --> duplex legs as needed # Leukocytosis due to reactive process --> abx as needed --> smear is noted --> on abx --> r/o covid # Pneumonia -> abx as needed # Thyroid nodule -> r/o nodules -> us thyroid as needed # Dvt ppx lovenox bid Appreciate consultation and dw Kenny Gutiérrez MD Mar 26, 2020 06:29
--- NOTE | 2020-03-26 07:23 | NUR ---
NURSE HAND-OFF REPORT: Important Events on Shift: Pt admitted to telemetry for PNA/COVID. No complaint of CP or acute distress. Patient Status: Stable Diet: Regular Pending Orders: Venous Duplex Pending Results/Labs: AM Labs Pending MD notification: N Latest Vital Signs: Temperature 99.1 , Pulse 107 , B/P 110 /63 , Respiratory Rate 22 , O2 SAT 97 , Nasal Cannula, O2 Flow Rate 2.0 . Vital Sign Comment: [] EKG Rhythm: Sinus Tachycardia Rhythm change?: N Latest Duran Fall Score: 30 Fall Risk: Medium Risk Safety Measures: Call light Within Reach, Bed Alarm Zone 1, Side Rails Side Rails x2, Bed position Low and Locked. Fall Precautions: Yellow Socks Patient Fall Education Report given to AARON Stoll.
--- NOTE | 2020-03-26 07:27 | NUR ---
NURSE NOTES: Pt received from Kimberly WALKER. Pt in bed eating breakfast, no complaint of pain or SOB at this time. Bed low and locked, call light within reach.
[2020-03-26 07:54] VITALS: BP 91/48
--- NOTE | 2020-03-26 08:07 | NUR ---
NURSE NOTES: Pt noted to be hypotensive , contacted Dr. Moore to update him, awaiting response.
[2020-03-26] MEDS: D5 1/2NS 1,000 ML IV SCH (08:34)
[2020-03-26] MEDS: Enoxaparin 60mg Inj SUBQ SCH ×2 (08:35→20:20)
--- NOTE | 2020-03-26 08:44 | Consultation ---
History of Present Illness General Date patient seen: Mar 26, 2020 Time patient seen: 11:11 Chief Complaint: Pain Referring physician: PCP Reason for Consultation: R/o COVID Present Illness HPI 69yo F who no PMH who p/w decreased appetite and back pain, r/o COVID for which ID is consulted. Pt reports back pain x1 day, worse by bending/twisting movement and moving her arms. Also w/ cough and exposure to sick persons in her building. Reports loss of taste and smell. Also w/ decreased appetite and mild diarrhea. In house, pt has been febrile to 100.8, leukocytosis to 16, CTA chest w/ PE, and COVID PCR p. Satting well on 2L NC Reports she overall feels better than on admission, less back pain Breathing is fine, dry cough, no SOB No COVID contacts but does have sick contacts No fevers/chills No allergies to abx Allergies: Coded Allergies: No Known Allergies (Unverified , 04/08/19) Medication History Scheduled Lidocaine Patch* (Lidoderm Patch*), 1 PATCH TOPIC DAILY Scheduled PRN Ibuprofen (Motrin), 600 MG ORAL Q8H PRN for For Pain Meclizine Hcl* (Meclizine*), 25 MG ORAL THREE TIMES A DAY PRN for for dizziness Methocarbamol* (Robaxin-500*), 500 MG ORAL TID PRN for For Pain Patient History Healthcare decision maker Resuscitation status Advanced Directive on File Review of Systems ROS Narrative 10-point ROS neg except as noted in HPI Physical Exam Physical Exam Narrative Gen: NAD HEENT: NCAT Pulm: BL chest rise Abd: Non-distended Ext: No c/c/e Skin: No visible rashes Neuro: Awake, alert, interactive Last 24 Hour Vital Signs Date Time Temp Pulse Resp B/P (MAP) Pulse Ox O2 Delivery O2 Flow Rate FiO2 03/26/20 08:00 98 03/26/20 07:54 98.2 105 18 91/48 (62) 100 03/26/20 04:00 117 03/26/20 04:00 99.1 107 22 110/63 (79) 97 03/25/20 23:31 Nasal Cannula 2.0 03/25/20 23:30 98.9 105 22 124/70 (88) 99 03/25/20 23:23 112 03/25/20 23:07 100.1 112 21 110/54 98 Nasal Cannula 2.0 03/25/20 22:59 100.1 110 21 116/68 98 Nasal Cannula 2.0 03/25/20 15:39 100.8 125 24 132/68 (89) 90 Room Air Intake and Output 03/25/20 03/26/20 19:00 07:00 Intake Total 1320 ml Balance 1320 ml Intake Oral 320 ml IV Total 1000 ml # Voids 1 Laboratory Tests Test 03/25/20 16:00 03/25/20 16:24 03/26/20 07:47 Urine Color Yellow Urine Appearance Slightly cloudy Urine pH 6.5 (4.5-8.0) Urine Specific [place] 1.010 (1.005-1.035) Urine Protein 1+ (NEGATIVE) H Urine Glucose (UA) 3+ (NEGATIVE) H Urine Ketones Negative (NEGATIVE) Urine Blood 2+ (NEGATIVE) H Urine Nitrite Negative (NEGATIVE) Urine Bilirubin Negative (NEGATIVE) Urine Urobilinogen 1 MG/DL (0.0-1.0) H Urine Leukocyte Esterase Negative (NEGATIVE) Urine RBC 5-10 /HPF (0 - 2) H Urine WBC 0-2 /HPF (0 - 2) Urine Squamous Epithelial Cells Many /LPF (NONE/OCC) H Urine Bacteria Few /HPF (NONE) Urine Yeast Few /HPF (NONE) H White Blood Count 16.9 K/UL (4.8-10.8) H Pending Red Blood Count 4.84 M/UL (4.20-5.40) Pending Hemoglobin 13.3 G/DL (12.0-16.0) Pending Hematocrit 41.1 % (37.0-47.0) Pending Mean Corpuscular Volume 85 FL (80-99) Pending Mean Corpuscular Hemoglobin 27.4 PG (27.0-31.0) Pending Mean Corpuscular Hemoglobin Concent 32.3 G/DL (32.0-36.0) Pending Red Cell Distribution Width 12.3 % (11.6-14.8) Pending Platelet Count 356 K/UL (150-450) Pending Mean Platelet Volume 6.4 FL (6.5-10.1) L Pending Neutrophils (%) (Auto) 82.9 % (45.0-75.0) H Pending Lymphocytes (%) (Auto) 7.6 % (20.0-45.0) L Pending Monocytes (%) (Auto) 8.5 % (1.0-10.0) Pending Eosinophils (%) (Auto) 0.1 % (0.0-3.0) Pending Basophils (%) (Auto) 0.9 % (0.0-2.0) Pending Prothrombin Time 12.3 SEC (9.30-11.50) H Prothromb Time International Ratio 1.1 (0.9-1.1) Activated Partial Thromboplast Time 33 SEC (23-33) D-Dimer 14.26 mg/L FEU (0.00-0.49) H Sodium Level 138 MMOL/L (136-145) Pending Potassium Level 3.7 MMOL/L (3.5-5.1) Pending Chloride Level 100 MMOL/L (98-107) Pending Carbon Dioxide Level 31 MMOL/L (21-32) Pending Anion Gap 7 mmol/L (5-15) Blood Urea Nitrogen 10 mg/dL (7-18) Pending Creatinine 0.9 MG/DL (0.55-1.30) Pending Estimat Glomerular Filtration Rate > 60 mL/min (>60) Pending Glucose Level 148 MG/DL (74-106) H Pending Lactic Acid Level 1.80 mmol/L (0.4-2.0) Calcium Level 9.5 MG/DL (8.5-10.1) Pending Phosphorus Level 2.9 MG/DL (2.5-4.9) Magnesium Level 2.1 MG/DL (1.8-2.4) Ferritin 565 NG/ML (8-388) H Total Bilirubin 1.1 MG/DL (0.2-1.0) H Direct Bilirubin 0.2 MG/DL (0.0-0.3) Aspartate Amino Transf (AST/SGOT) 31 U/L (15-37) Alanine Aminotransferase (ALT/SGPT) 33 U/L (12-78) Alkaline Phosphatase 91 U/L (46-116) Lactate Dehydrogenase 284 U/L (81-234) H Total Creatine Kinase 50 U/L (26-308) Creatine Kinase MB < 0.5 NG/ML (0.0-3.6) Creatine Kinase MB Relative Index 1.0 Troponin I 0.000 ng/mL (0.000-0.056) C-Reactive Protein, Quantitative 21.5 mg/dL (0.00-0.90) H Pro-B-Type Natriuretic Peptide 129 pg/mL (0-125) H Total Protein 7.7 G/DL (6.4-8.2) Albumin 2.9 G/DL (3.4-5.0) L Globulin 4.8 g/dL Albumin/Globulin Ratio 0.6 (1.0-2.7) L Lipase 83 U/L (73-393) Microbiology Date/Time Source Procedure Growth Status 03/25/20 20:30 Nasal Nares - Final Complete 03/25/20 20:30 Nasal Nares - Final Complete Height (Feet): 5 Height (Inches): 4.00 Weight (Pounds): 145 Medications Current Medications Medications (Trade) Dose Ordered Sig/Magda Route PRN Reason Start Time Stop Time Status Last Admin Dose Admin Acetaminophen (Tylenol) 650 mg Q6H PRN ORAL Mild Pain/Fever 100.5 F 03/26/20 00:00 04/25/20 00:00 Dextrose/Sodium Chloride 1,000 ml @ 60 mls/hr [id number] IV 03/26/20 08:15 04/25/20 08:14 03/26/20 08:34 Enoxaparin Sodium (Lovenox) 60 mg EVERY 12 HOURS SUBQ 03/26/20 09:00 06/24/20 08:59 03/26/20 08:35 Guaifenesin/ Dextromethorphan (Robitussin DM Syrup) 15 ml Q6H PRN ORAL For Cough 03/26/20 03:00 06/24/20 02:59 Ibuprofen (Motrin) 600 mg Q8H PRN ORAL For Pain 03/26/20 00:00 04/25/20 00:00 03/26/20 02:14 Iohexol (Omnipaque 350 100ml) 100 ml NOW PRN INJ Radiology Procedure 03/25/20 20:00 03/27/20 19:59 Assessment/Plan Assessment/Plan: 69yo F with: Febrile to 100.8 Back pain Pulmonary embolus, acute R/o COVID Satting well on 2L NC Leukocytosis to 16 Lymphopenia 03/25 COVID PCR p BCx p UA neg, UCx p CTA chest: 1. Right posterior basal segmental pulmonary embolism extending into the subsegmental pulmonary arteries. No evidence of right heart strain. 2. Right lung base airspace opacities likely sequela of ischemia from pulmonary embolism. 3. Left lung base atelectasis. Underlying concomitant infectious process is not definitively excluded. 4. Bilateral thyroid nodules. Flu neg Cr 0.9 Plan: Cont CTX #2 for possible pna Anticoagulation for PE per primary No indication for empiric steroids for possible COVID at this time given good O2 sat F/u COVID PCR F/u BCx Trend WBC Monitor CBC/CMP Monitor temp curve, hemodynamics Monitor resp status D/w RN Thank you for this consult. [facility] will continue to follow. Lor Millan M.D. Mar 26, 2020 08:43
[2020-03-26 08:45] LABS: HEMOGLOBIN 11.9 G/DL (12.0-16.0); MEAN CORPUSCULAR VOLUME 85 FL (80-99); PLATELET COUNT 316 K/UL (150-450); RED BLOOD COUNT 4.34 M/UL (4.20-5.40); WHITE BLOOD COUNT 18.7 K/UL (4.8-10.8)
[2020-03-26 09:02] LABS: ANION GAP 9 mmol/L (5-15); BLOOD UREA NITROGEN 7 mg/dL (7-18); CALCIUM 8.9 MG/DL (8.5-10.1); CARBON DIOXIDE 27 MMOL/L (21-32); CHLORIDE 106 MMOL/L (98-107); CREATININE 0.8 MG/DL (0.55-1.30); POTASSIUM 3.4 MMOL/L (3.5-5.1); SODIUM 142 MMOL/L (136-145)
--- NOTE | 2020-03-26 09:22 | NUR ---
CASE MANAGEMENT:REVIEW 69 YR OLD FEMALE TO ER SI:PNEUMONIA. PUI. PULMONARY EMBOLI 100.7 125 24 132/68 90% ON RA WBC+16.9 IS: PLACED ON 2L/NC 1L NS BOLUS IV AZITHROMYCIN IV ROCEPHIN LOVENOX SQ URINE CX COVID SWAB : TO TELEMETRY UNIT DCP: FROM HOME
[2020-03-26] MEDS: Milk of Magnesia 30ml Ud ORAL PRN ×2 (10:10→16:27)
[2020-03-26] MEDS: Docusate 100mg cap ORAL SCH ×2 (10:10→17:38)
--- NOTE | 2020-03-26 10:14 | History and Physical Report ---
DATE OF ADMISSION: 03/25/2020 TIME SEEN: 9 a.m. CONSULTANTS: 1. Angelito Alonzo MD. 2. Fabiana Morrow MD. 3. David Meek MD. 4. Dr. Aldana. CHIEF COMPLAINT: Loss of appetite and taste, back pain, right lower lobe pneumonia, possible COVID. BRIEF HISTORY: This is a 69-year-old female, who lives at home with two-day decrease in appetite, back pain, loss of taste, positive COVID exposure. The patient came to [place], diagnosed with right lower lobe pneumonia. Positive nausea. No vomiting. Positive D-dimers and admitted to telemetry for further care. Currently, O2 NC, sleeping in bed, not talking much. REVIEW OF SYSTEMS: Unavailable. PAST MEDICAL HISTORY: As mentioned. PAST SURGICAL HISTORY: Unknown. MEDICATIONS: Includes ceftriaxone, docusate sodium, magnesium, enoxaparin, guaifenesin, ibuprofen, and Tylenol. ALLERGIES: Denies. SOCIAL HISTORY: Unable to obtain secondary to the patient's condition. OBJECTIVE: GENERAL: Sleeping in bed, O2 NC, slight short of breath. VITAL SIGNS: Temperature is 98 degrees, pulse 105, respiratory rate 18, blood pressure 91/48. CARDIOVASCULAR: No murmur. LUNGS: Poor air exchange. ABDOMEN: Bowel sounds distant. EXTREMITIES: No cyanosis, clubbing, or edema. NEUROLOGIC: The patient moves all extremities, slightly weak. LABORATORY AND DIAGNOSTIC DATA: Labs at this time show white count 18.7, hemoglobin 11.9. BMP shows potassium 3.4, glucose 167. Ferritin 568. Troponin 0.00. INR is 1.1. D-dimer 14.26. Urinalysis shows 2+ blood, 1+ protein. ASSESSMENT: 1. Loss of taste. 2. Nausea. 3. Right lower lobe pneumonia. 4. Positive D-dimer. 5. Anemia. 6. Leukocytosis. 7. Possible COVID. PLAN: 1. O2 and pulmonary treatment. 2. Antibiotics per Infectious Diseases. 3. Pain control. 4. Dietary followup. 5. CBC and BMP in the morning. Nadir Moore D.O. DR: Chepe JOB#: [id number] CC:
--- NOTE | 2020-03-26 10:31 | Cardiac Electrophysiology PN ---
Subjective Subjective Delayed entry. Patient seen and examined and [facility] ER on 03/25/20 Dictated # [id number] Objective Last 24 Hour Vital Signs Date Time Temp Pulse Resp B/P (MAP) Pulse Ox O2 Delivery O2 Flow Rate FiO2 03/26/20 09:00 Room Air 03/26/20 08:00 98 03/26/20 07:54 98.2 105 18 91/48 (62) 100 03/26/20 04:00 117 03/26/20 04:00 99.1 107 22 110/63 (79) 97 03/25/20 23:31 Nasal Cannula 2.0 03/25/20 23:30 98.9 105 22 124/70 (88) 99 03/25/20 23:23 112 03/25/20 23:07 100.1 112 21 110/54 98 Nasal Cannula 2.0 03/25/20 22:59 100.1 110 21 116/68 98 Nasal Cannula 2.0 03/25/20 15:39 100.8 125 24 132/68 (89) 90 Room Air Intake and Output 03/25/20 03/26/20 19:00 07:00 Intake Total 1320 ml Balance 1320 ml Intake Oral 320 ml IV Total 1000 ml # Voids 1 Laboratory Tests Test 03/25/20 16:00 03/25/20 16:24 03/26/20 07:47 Urine Color Yellow Urine Appearance Slightly cloudy Urine pH 6.5 (4.5-8.0) Urine Specific [place] 1.010 (1.005-1.035) Urine Protein 1+ (NEGATIVE) H Urine Glucose (UA) 3+ (NEGATIVE) H Urine Ketones Negative (NEGATIVE) Urine Blood 2+ (NEGATIVE) H Urine Nitrite Negative (NEGATIVE) Urine Bilirubin Negative (NEGATIVE) Urine Urobilinogen 1 MG/DL (0.0-1.0) H Urine Leukocyte Esterase Negative (NEGATIVE) Urine RBC 5-10 /HPF (0 - 2) H Urine WBC 0-2 /HPF (0 - 2) Urine Squamous Epithelial Cells Many /LPF (NONE/OCC) H Urine Bacteria Few /HPF (NONE) Urine Yeast Few /HPF (NONE) H White Blood Count 16.9 K/UL (4.8-10.8) H 18.7 K/UL (4.8-10.8) H Red Blood Count 4.84 M/UL (4.20-5.40) 4.34 M/UL (4.20-5.40) Hemoglobin 13.3 G/DL (12.0-16.0) 11.9 G/DL (12.0-16.0) L Hematocrit 41.1 % (37.0-47.0) 37.0 % (37.0-47.0) Mean Corpuscular Volume 85 FL (80-99) 85 FL (80-99) Mean Corpuscular Hemoglobin 27.4 PG (27.0-31.0) 27.4 PG (27.0-31.0) Mean Corpuscular Hemoglobin Concent 32.3 G/DL (32.0-36.0) 32.2 G/DL (32.0-36.0) Red Cell Distribution Width 12.3 % (11.6-14.8) 12.0 % (11.6-14.8) Platelet Count 356 K/UL (150-450) 316 K/UL (150-450) Mean Platelet Volume 6.4 FL (6.5-10.1) L 6.6 FL (6.5-10.1) Neutrophils (%) (Auto) 82.9 % (45.0-75.0) H % (45.0-75.0) Lymphocytes (%) (Auto) 7.6 % (20.0-45.0) L % (20.0-45.0) Monocytes (%) (Auto) 8.5 % (1.0-10.0) % (1.0-10.0) Eosinophils (%) (Auto) 0.1 % (0.0-3.0) % (0.0-3.0) Basophils (%) (Auto) 0.9 % (0.0-2.0) % (0.0-2.0) Prothrombin Time 12.3 SEC (9.30-11.50) H Prothromb Time International Ratio 1.1 (0.9-1.1) Activated Partial Thromboplast Time 33 SEC (23-33) D-Dimer 14.26 mg/L FEU (0.00-0.49) H Sodium Level 138 MMOL/L (136-145) 142 MMOL/L (136-145) Potassium Level 3.7 MMOL/L (3.5-5.1) 3.4 MMOL/L (3.5-5.1) L Chloride Level 100 MMOL/L (98-107) 106 MMOL/L (98-107) Carbon Dioxide Level 31 MMOL/L (21-32) 27 MMOL/L (21-32) Anion Gap 7 mmol/L (5-15) 9 mmol/L (5-15) Blood Urea Nitrogen 10 mg/dL (7-18) 7 mg/dL (7-18) Creatinine 0.9 MG/DL (0.55-1.30) 0.8 MG/DL (0.55-1.30) Estimat Glomerular Filtration Rate > 60 mL/min (>60) > 60 mL/min (>60) Glucose Level 148 MG/DL (74-106) H 167 MG/DL (74-106) H Lactic Acid Level 1.80 mmol/L (0.4-2.0) Calcium Level 9.5 MG/DL (8.5-10.1) 8.9 MG/DL (8.5-10.1) Phosphorus Level 2.9 MG/DL (2.5-4.9) Magnesium Level 2.1 MG/DL (1.8-2.4) Ferritin 565 NG/ML (8-388) H Total Bilirubin 1.1 MG/DL (0.2-1.0) H Direct Bilirubin 0.2 MG/DL (0.0-0.3) Aspartate Amino Transf (AST/SGOT) 31 U/L (15-37) Alanine Aminotransferase (ALT/SGPT) 33 U/L (12-78) Alkaline Phosphatase 91 U/L (46-116) Lactate Dehydrogenase 284 U/L (81-234) H Total Creatine Kinase 50 U/L (26-308) Creatine Kinase MB < 0.5 NG/ML (0.0-3.6) Creatine Kinase MB Relative Index 1.0 Troponin I 0.000 ng/mL (0.000-0.056) C-Reactive Protein, Quantitative 21.5 mg/dL (0.00-0.90) H Pro-B-Type Natriuretic Peptide 129 pg/mL (0-125) H Total Protein 7.7 G/DL (6.4-8.2) Albumin 2.9 G/DL (3.4-5.0) L Globulin 4.8 g/dL Albumin/Globulin Ratio 0.6 (1.0-2.7) L Lipase 83 U/L (73-393) Differential Total Cells Counted 100 Neutrophils % (Manual) 84 % (45-75) H Lymphocytes % (Manual) 5 % (20-45) L Monocytes % (Manual) 11 % (1-10) H Eosinophils % (Manual) 0 % (0-3) Basophils % (Manual) 0 % (0-2) Band Neutrophils 0 % (0-8) Platelet Estimate Adequate Platelet Morphology Normal Hypochromasia 1+ Microbiology Date/Time Source Procedure Growth Status 03/25/20 20:30 Nasal Nares - Final Complete 03/25/20 20:30 Nasal Nares - Final Complete David Meek MD Mar 26, 2020 10:31
--- NOTE | 2020-03-26 10:31 | Consultation ---
Consult Note Consult Note DATE OF CONSULTATION: 03/26/2020 CONSULTING PHYSICIAN: Angelito Alonzo MD. ATTENDING PHYSICIAN: Dr. Moore REASON FOR CONSULTATION: Pulmonary embolus, possible pneumonia HISTORY OF PRESENT ILLNESS: This is a 69-year-old female with no reported medical history who presented to the ED for evaluation of decreased appetite and back pain. Patient reported having pain in the right mid scapular region x1 day. Pain was exacerbated by bending and twisting motion and moving her arms. Denies pain in the middle of the back, weakness, numbness, tingling, urinary retention, fecal incontinence. Denies fever or chills. Reports cough and recent exposure to sick people in her building. Reports loss of taste and s dylon. Reports decreased appetite and mild diarrhea. Reports nausea but no vomiting. Denies chest pain or palpitations. No recent Covid test. Chest x-ray is concerning for pneumonia. CT angio of chest revealed a right posterior basal segmental pulmonary embolus extending into the subsegmental pulmonary arteries without evidence of right heart strain. Bilateral thyroid nodules also noted. Covid swab was sent. She was given Lovenox due to elevated D-dimer. She was also given ceftriaxone and azithromycin for possible pneumonia. She is now admitted to the hospital and was seen in telemetry. PAST MEDICAL HISTORY: Large cyst removed from her back many years ago MEDICATIONS: Ibuprofen, Lidoderm patch, meclizine, methocarbamol ALLERGIES: No known allergies FAMILY HISTORY: Unknown PERSONAL/SOCIAL HISTORY: Non-smoker REVIEW OF SYSTEMS: Negative except mentioned in HPI PHYSICAL EXAMINATION: VITAL SIGNS: Blood pressure 91/48, heart rate 105, respiratory rate 18, weight 65 kg, height 162 cm General: Patient laying in bed, NAD, normal work of breathing on room air HEENT: Head exam reveals that the head is normocephalic, atraumatic without deformity or unusual swelling. Pupils are PERRLA. CHEST AND LUNGS: Mild crackles bilaterally, no cough or wheezing during exam CARDIOVASCULAR: Tachycardic, reveals normal S1, S2 without murmurs, rubs, or clicks. ABDOMEN: Soft with no tenderness or organomegaly. RECTAL: Deferred. MUSCULOSKELETAL: There is no tenderness to palpation. Range of motion is normal. NEUROLOGICAL: Alert and oriented x3 , nonfocal LABORATORY DATA: Laboratory testing shows WBC 18.7, Hgb 11.9. Chemistries show potassium 3.4, glucose 167, ferritin 565, LDH 284, CRP 21.5 D-dimer 14.26 Assessment/Plan 1. ?Pneumonia with fever and leukocytosis -On ceftriaxone empirically per ID 2. Normoxemia -No indication for steroids for possible Covid at this time given good saturation on room air 3. Pulmonary embolus, acute -Right posterior basal segmental PE extending into the subsegmental pulmonary arteries -Continue full dose Lovenox -Venous duplex US lower legs ordered -Hypercoag work-up not needed due to age per heme onc 5. Elevated D-dimer -Duplex legs ordered -On Lovenox 6. Thyroid nodules -Hematology oncology following 7. COVID-19 PUI -COVID-19 swab has been sent. The care for this patient was discussed with my supervising physician. Time spent for this case was approximately 31 minutes. Denzel Villalta Mar 26, 2020 10:31
--- NOTE | 2020-03-26 11:14 | Consultation ---
DATE OF CONSULTATION: 03/25/2020 CARDIOLOGY CONSULTATION CONSULTING PHYSICIAN: David Meek MD REFERRING PHYSICIAN: Nadir Moore DO REASON FOR CONSULTATION: Shortness of breath in a patient who is COVID positive and tachycardia. HISTORY OF PRESENT ILLNESS: The patient is a 69-year-old lady with no major past medical history who presents to the emergency room for decreased appetite and back pain. She had a large cyst removed from her back many years ago but started having right midscapular pain the day before the admission. The patient reports loss of taste and smell, decreased appetite, and mild diarrhea. The patient has not had any recent COVID test done. Blood pressure in the ER was 132/68, pulse was 125, temperature was 100.8. At the time of my evaluation, the patient is in COVID isolation. In the emergency room does not have any chest pain but is mildly short of breath. REVIEW OF SYSTEMS: Negative other than what is mentioned in the history of present illness. PAST MEDICAL HISTORY: As mentioned above. FAMILY HISTORY: Noncontributory. SOCIAL HISTORY: Lives at home. Does not smoke or drink alcohol. PHYSICAL EXAMINATION: VITAL SIGNS: Blood pressure of 124/70, pulse 110, respiratory rate 18, temperature is 100.8. HEAD AND NECK: Showed no JVD. LUNGS: Coarse rhonchi. CARDIOVASCULAR: Regular S1 and S2 with no gallop. ABDOMEN: Soft. EXTREMITIES: No pitting edema. LABORATORY DATA: Labs show white count of 16.9, hemoglobin 13.2, hematocrit 41.1, and platelet count 356. Sodium is 138, potassium 3.7, BUN of 10, creatinine 0.9, and glucose is 148. ASSESSMENT AND PLAN: 1. Shortness of breath likely due to the patient's COVID pneumonia. The patient is already on antibiotic with ceftriaxone. We will get an echocardiogram to evaluate for ejection fraction and wall motion abnormality. In the meantime, the patient continues on 2 liters nasal cannula. 2. Chest pain. First troponin is negative. COVID PCR is pending. Further evaluation by . 3. Pulmonary embolism. The CT angiogram of chest shows right posterior basal segment of pulmonary embolism extending to subsegmental pulmonary arteries with no evidence of right heart strain. We will get an echocardiogram to evaluate that further. At the meantime, the patient stays on Lovenox 60 mg subcutaneous b.i.d. Thank you very much for allowing me to participate in the care of this patient. Please do not hesitate to contact me for any questions regarding my evaluation. David Meek M.D. DR: Nola JOB#: [id number] CC:
--- NOTE | 2020-03-26 11:43 | Cardiac Electrophysiology PN ---
Assessment/Plan Assessment/Plan 1. SOB due to Acute PE (Right posterior basal segmental PE extending into the subsegmental pulmonary arteries) on Lovenox. TTE pending. Being ruled out for Covid. Ruled out for SC 2. Possible PNA with WBC 18K on Abx per Dr Alonzo 3. Low K replaced 4. Low BP.Add Midodrine 5 tid. Better now DW RN Subjective Subjective No CP or SOB. On Lovenox for PE. TTE pending. BP 91/46. On RA. R/O Covid Objective Last 24 Hour Vital Signs Date Time Temp Pulse Resp B/P (MAP) Pulse Ox O2 Delivery O2 Flow Rate FiO2 03/26/20 09:00 Room Air 03/26/20 08:00 98 03/26/20 07:54 98.2 105 18 91/48 (62) 100 03/26/20 04:00 117 03/26/20 04:00 99.1 107 22 110/63 (79) 97 03/25/20 23:31 Nasal Cannula 2.0 03/25/20 23:30 98.9 105 22 124/70 (88) 99 03/25/20 23:23 112 03/25/20 23:07 100.1 112 21 110/54 98 Nasal Cannula 2.0 03/25/20 22:59 100.1 110 21 116/68 98 Nasal Cannula 2.0 03/25/20 15:39 100.8 125 24 132/68 (89) 90 Room Air Intake and Output 03/25/20 03/26/20 19:00 07:00 Intake Total 1320 ml Balance 1320 ml Intake Oral 320 ml IV Total 1000 ml # Voids 1 Laboratory Tests Test 03/25/20 16:00 03/25/20 16:24 03/26/20 07:47 03/26/20 11:00 Urine Color Yellow Urine Appearance Slightly cloudy Urine pH 6.5 (4.5-8.0) Urine Specific [place] 1.010 (1.005-1.035) Urine Protein 1+ (NEGATIVE) H Urine Glucose (UA) 3+ (NEGATIVE) H Urine Ketones Negative (NEGATIVE) Urine Blood 2+ (NEGATIVE) H Urine Nitrite Negative (NEGATIVE) Urine Bilirubin Negative (NEGATIVE) Urine Urobilinogen 1 MG/DL (0.0-1.0) H Urine Leukocyte Esterase Negative (NEGATIVE) Urine RBC 5-10 /HPF (0 - 2) H Urine WBC 0-2 /HPF (0 - 2) Urine Squamous Epithelial Cells Many /LPF (NONE/OCC) H Urine Bacteria Few /HPF (NONE) Urine Yeast Few /HPF (NONE) H White Blood Count 16.9 K/UL (4.8-10.8) H 18.7 K/UL (4.8-10.8) H Red Blood Count 4.84 M/UL (4.20-5.40) 4.34 M/UL (4.20-5.40) Hemoglobin 13.3 G/DL (12.0-16.0) 11.9 G/DL (12.0-16.0) L Hematocrit 41.1 % (37.0-47.0) 37.0 % (37.0-47.0) Mean Corpuscular Volume 85 FL (80-99) 85 FL (80-99) Mean Corpuscular Hemoglobin 27.4 PG (27.0-31.0) 27.4 PG (27.0-31.0) Mean Corpuscular Hemoglobin Concent 32.3 G/DL (32.0-36.0) 32.2 G/DL (32.0-36.0) Red Cell Distribution Width 12.3 % (11.6-14.8) 12.0 % (11.6-14.8) Platelet Count 356 K/UL (150-450) 316 K/UL (150-450) Mean Platelet Volume 6.4 FL (6.5-10.1) L 6.6 FL (6.5-10.1) Neutrophils (%) (Auto) 82.9 % (45.0-75.0) H % (45.0-75.0) Lymphocytes (%) (Auto) 7.6 % (20.0-45.0) L % (20.0-45.0) Monocytes (%) (Auto) 8.5 % (1.0-10.0) % (1.0-10.0) Eosinophils (%) (Auto) 0.1 % (0.0-3.0) % (0.0-3.0) Basophils (%) (Auto) 0.9 % (0.0-2.0) % (0.0-2.0) Prothrombin Time 12.3 SEC (9.30-11.50) H Prothromb Time International Ratio 1.1 (0.9-1.1) Activated Partial Thromboplast Time 33 SEC (23-33) D-Dimer 14.26 mg/L FEU (0.00-0.49) H Sodium Level 138 MMOL/L (136-145) 142 MMOL/L (136-145) Potassium Level 3.7 MMOL/L (3.5-5.1) 3.4 MMOL/L (3.5-5.1) L Chloride Level 100 MMOL/L (98-107) 106 MMOL/L (98-107) Carbon Dioxide Level 31 MMOL/L (21-32) 27 MMOL/L (21-32) Anion Gap 7 mmol/L (5-15) 9 mmol/L (5-15) Blood Urea Nitrogen 10 mg/dL (7-18) 7 mg/dL (7-18) Creatinine 0.9 MG/DL (0.55-1.30) 0.8 MG/DL (0.55-1.30) Estimat Glomerular Filtration Rate > 60 mL/min (>60) > 60 mL/min (>60) Glucose Level 148 MG/DL (74-106) H 167 MG/DL (74-106) H Lactic Acid Level 1.80 mmol/L (0.4-2.0) Calcium Level 9.5 MG/DL (8.5-10.1) 8.9 MG/DL (8.5-10.1) Phosphorus Level 2.9 MG/DL (2.5-4.9) Magnesium Level 2.1 MG/DL (1.8-2.4) Ferritin 565 NG/ML (8-388) H Total Bilirubin 1.1 MG/DL (0.2-1.0) H Direct Bilirubin 0.2 MG/DL (0.0-0.3) Aspartate Amino Transf (AST/SGOT) 31 U/L (15-37) Alanine Aminotransferase (ALT/SGPT) 33 U/L (12-78) Alkaline Phosphatase 91 U/L (46-116) Lactate Dehydrogenase 284 U/L (81-234) H Total Creatine Kinase 50 U/L (26-308) Creatine Kinase MB < 0.5 NG/ML (0.0-3.6) Creatine Kinase MB Relative Index 1.0 Troponin I 0.000 ng/mL (0.000-0.056) 0.000 ng/mL (0.000-0.056) C-Reactive Protein, Quantitative 21.5 mg/dL (0.00-0.90) H Pro-B-Type Natriuretic Peptide 129 pg/mL (0-125) H Total Protein 7.7 G/DL (6.4-8.2) Albumin 2.9 G/DL (3.4-5.0) L Globulin 4.8 g/dL Albumin/Globulin Ratio 0.6 (1.0-2.7) L Lipase 83 U/L (73-393) Differential Total Cells Counted 100 Neutrophils % (Manual) 84 % (45-75) H Lymphocytes % (Manual) 5 % (20-45) L Monocytes % (Manual) 11 % (1-10) H Eosinophils % (Manual) 0 % (0-3) Basophils % (Manual) 0 % (0-2) Band Neutrophils 0 % (0-8) Platelet Estimate Adequate Platelet Morphology Normal Hypochromasia 1+ Microbiology Date/Time Source Procedure Growth Status 03/25/20 20:30 Nasal Nares - Final Complete 03/25/20 20:30 Nasal Nares - Final Complete Objective GENERAL: Sleeping in bed, O2 NC, slight short of breath. No JVD CARDIOVASCULAR: RRR, No murmur. LUNGS: Poor air exchange. ABDOMEN: Bowel sounds distant. EXTREMITIES: No cyanosis, clubbing, or edema. NEUROLOGIC: moves all extremities, slightly weak. David Meek MD Mar 26, 2020 11:43
[2020-03-26 12:00] VITALS: BP 112/53
--- NOTE | 2020-03-26 12:30 | NUR ---
NURSE NOTES: Entered room to recheck pt temp, temp of 100.6 noted. returned to the room within 5 minutes with m edicaiton and cooling measures. Pt suddenly reporting severe 10/10 pain in right back, she is indicatinf region near posterior base of right lung. Immediately notified charge and called Denzel CARDOZO who contact Dr. Alonzo immediately. Vitals as follows 129/65, HR 106 ST on monitor, 96% on 2 liters NC, Resp of 22.
--- NOTE | 2020-03-26 13:20 | NUR ---
NURSE NOTES: Per Dr. Alonzo continue to monitor, if pain persists he will give stronger pain meds.
--- NOTE | 2020-03-26 14:03 | Diagnostic Imaging Report ---
Indication: Shortness of breath, CT scan yesterday demonstrating pulmonary embolus Technique: Grayscale and duplex images of the bilateral lower extremity veins Comparison: None Findings: Bilaterally, grayscale and duplex images demonstrate no evidence of intraluminal thrombus. Normal phasic Doppler waveforms, demonstrating normal augmentation response and no evidence of valvular insufficiency. Greater saphenous vein(s) and tibial veins are patent. Normal compressibility. Impression: Negative for evidence of lower extremity deep venous thrombosis bilaterally
[2020-03-26 16:00] VITALS: BP 103/52
[2020-03-26] MEDS: guaiFENesin /DM 10ml syrup ORAL PRN (16:26)
[2020-03-26] MEDS: HYDROcodone/Acetamin 5/325 tab ORAL PRN (16:27)
[2020-03-26] MEDS ORDERED: cefTRIAXone 1 GM in D5W 55 ML IVPB SCH (18:00)
--- NOTE | 2020-03-26 18:40 | NUR ---
NURSE HAND-OFF REPORT: Important Events on Shift:[Right mid back pain, area noted to be where PE is per CT. Pain controlled with tylenol and norco. Bowel mgmt given with success, pt had BM after 4 days. ] Patient Status: [Full code] Diet: [Regular] Pending Orders: [] Pending Results/Labs:[] Pending MD notification:[] Latest Vital Signs: Temperature 98.6 , Pulse 87 , B/P 103 /52 , Respiratory Rate 20 , O2 SAT 93 , Nasal Cannula, O2 Flow Rate 2.0 . Vital Sign Comment: [] EKG Rhythm: Sinus Rhythm Rhythm change?: N MD Notified?: - MD Response: Latest Dur[place] Fall Score: 30 Fall Risk: Medium Risk Safety Measures: Call light Within Reach, Bed Alarm Zone 1, Side Rails Side Rails x2, Bed position Low and Locked. Fall Precautions: Patient Fall Education Report given to [Pending RN assignment]. Addendum: 03/26/20 at 1916 by Dodie Diaz RN Report given to Nitish WALKER
[2020-03-26 20:00] VITALS: BP 119/64
[2020-03-27] VITALS: BP 120/64
[2020-03-27] MEDS: D5 1/2NS 1,000 ML IV SCH ×2 (00:29→17:09)
[2020-03-27] MEDS: HYDROcodone/Acetamin 5/325 tab ORAL PRN ×3 (01:04→20:25)
--- NOTE | 2020-03-27 03:50 | NUR ---
NURSE NOTES: Pt. with complaint of posterior lower back pain, pt. moaning and visibly restless. Pain medication given as ordered, pt. now resting well.
[2020-03-27 04:00] VITALS: BP 102/59
[2020-03-27 05:33] LABS: HEMATOCRIT 31.3 % (37.0-47.0); HEMOGLOBIN 10.5 G/DL (12.0-16.0); MEAN CORPUSCULAR VOLUME 84 FL (80-99); PLATELET COUNT 272 K/UL (150-450); RED BLOOD COUNT 3.73 M/UL (4.20-5.40); RED CELL DISTRIBUTION WIDTH 14.1 % (11.6-14.8); WHITE BLOOD COUNT 19.2 K/UL (4.8-10.8)
[2020-03-27 05:43] LABS: ANION GAP 5 mmol/L (5-15); BLOOD UREA NITROGEN 8 mg/dL (7-18); CALCIUM 8.6 MG/DL (8.5-10.1); CARBON DIOXIDE 28 MMOL/L (21-32); CHLORIDE 103 MMOL/L (98-107); CREATININE 0.7 MG/DL (0.55-1.30); SODIUM 136 MMOL/L (136-145)
--- NOTE | 2020-03-27 06:15 | Hematology/Onc Progress Note ---
Assessment/Plan Assessment/Plan Assessment and Recs # Right posterior basal segmental pulmonary embolism extending into the subsegmental pulmonary arteries. No evidence of right heart strain. Right lung base airspace opacities likely sequela of ischemia from pulmonary embolism. --> anticoagulation has been started lovenox bid --> r/o bleeding --> venous duplex lower legs--> NEG --> hypercoag w/u not needed due to age # Elevated ddimer r/o infection --> duplex legs as needed # Anemia of chronic disease --> hgb 10 --> no bleeding at this time --> ferritin is elev # Leukocytosis due to reactive process --> abx as needed --> smear is noted --> on abx --> r/o covid --> wbc 19 # Pneumonia -> abx as needed # Thyroid nodule -> r/o nodules -> us thyroid as needed # Dvt ppx lovenox bid Appreciate consultation and asif Rn Subjective Constitutional: Denies: no symptoms, chills, fever, malaise, weakness, other HEENT: Denies: no symptoms, eye pain, blurred vision, tearing, double vision, ear pain, ear discharge, nose pain, nose congestion, throat pain, throat swelling, mouth pain, mouth swelling, other Cardiovascular: Denies: no symptoms, chest pain, edema, irregular heart rate, lightheadedness, palpitations, syncope, other Respiratory: Denies: no symptoms, cough, shortness of breath, SOB with excertion, SOB at rest, sputum, wheezing, other Gastrointestinal/Abdominal: Denies: no symptoms, abdomen distended, abdominal pain, black stools, tarry stools, blood in stool, constipated, diarrhea, dif ficulty swallowing, nausea, poor appetite, poor fluid intake, rectal bleeding, vomiting, other Genitourinary: Denies: no symptoms, burning, discharge, frequency, flank pain, hematuria, incontinence, pain, urgency, other Endocrine: Denies: no symptoms, excessive sweating, flushing, intolerance to cold, intolerance to heat, increased hunger, increased thirst, increased urine, unexplained weight gain, unexplained weight loss, other Allergies: Coded Allergies: No Known Allergies (Unverified , 04/08/19) Subjective 03/27 on nc, with back pain, on ivf, labs are noted, downtrending hgb Objective Objective Current Medications Medications (Trade) Dose Ordered Sig/Magda Route PRN Reason Start Time Stop Time Status Last Admin Dose Admin Acetaminophen (Tylenol) 650 mg Q6H PRN ORAL Mild Pain/Fever 100.5 F 03/26/20 00:00 04/25/20 00:00 03/27/20 00:29 Acetaminophen/ Hydrocodone Bitart ([place] 5/325) 1 tab Q6H PRN ORAL For Pain 4-10 03/26/20 13:45 04/02/20 13:44 03/27/20 01:04 Bisacodyl (Dulcolax) 10 mg DAILYPRN PRN RECTAL Constipation 03/26/20 09:15 06/24/20 09:14 Ceftriaxone Sodium 1 gm/ Dextrose 55 ml @ 110 mls/hr Q24H IVPB 03/26/20 18:00 04/02/20 17:59 03/26/20 17:37 Dextrose/Sodium Chloride 1,000 ml @ 60 mls/hr [id number] IV 03/26/20 08:15 04/25/20 08:14 03/27/20 00:29 Docusate Sodium (Colace) 100 mg TWICE A DAY ORAL 03/26/20 10:00 04/25/20 09:59 03/26/20 17:38 Enoxaparin Sodium (Lovenox) 60 mg EVERY 12 HOURS SUBQ 03/26/20 09:00 06/24/20 08:59 03/26/20 20:20 Guaifenesin/ Dextromethorphan (Robitussin DM Syrup) 15 ml Q6H PRN ORAL For Cough 03/26/20 03:00 06/24/20 02:59 03/26/20 16:26 Ibuprofen (Motrin) 600 mg Q8H PRN ORAL For Pain 03/26/20 00:00 04/25/20 00:00 03/26/20 02:14 Iohexol (Omnipaque 350 100ml) 100 ml NOW PRN INJ Radiology Procedure 03/25/20 20:00 03/27/20 19:59 Magnesium Hydroxide (Mom) 30 ml DAILYPRN PRN ORAL Constipation 03/26/20 09:15 04/25/20 09:14 03/26/20 16:27 Midodrine (Pro-Amatine) 5 mg THREE TIMES A DAY ORAL 03/26/20 13:00 06/24/20 12:59 03/26/20 17:38 Last 24 Hour Vital Signs Date Time Temp Pulse Resp B/P (MAP) Pulse Ox O2 Delivery O2 Flow Rate FiO2 03/27/20 04:00 74 03/27/20 04:00 98.7 74 18 102/59 (73) 97 03/27/20 00:59 99.5 03/27/20 00:00 101.8 97 20 120/64 (82) 100 03/27/20 00:00 97 03/26/20 21:00 Nasal Cannula 2.0 03/26/20 20:00 98.5 84 17 119/64 (82) 99 03/26/20 20:00 84 03/26/20 16:57 98.6 03/26/20 16:00 98.6 89 20 103/52 (69) 93 03/26/20 16:00 87 03/26/20 12:58 100.4 03/26/20 12:00 103 03/26/20 12:00 100.6 100 20 112/53 (72) 94 03/26/20 09:00 Room Air 03/26/20 08:00 98 03/26/20 07:54 98.2 105 18 91/48 (62) 100 03/26/20 04:00 117 03/26/20 04:00 99.1 107 22 110/63 (79) 97 03/25/20 23:31 Nasal Cannula 2.0 03/25/20 23:30 98.9 105 22 124/70 (88) 99 03/25/20 23:23 112 03/25/20 23:07 100.1 112 21 110/54 98 Nasal Cannula 2.0 03/25/20 22:59 100.1 110 21 116/68 98 Nasal Cannula 2.0 03/25/20 15:39 100.8 125 24 132/68 (89) 90 Room Air Intake and Output 03/26/20 03/27/20 19:00 07:00 Intake Total 600 ml 540 ml Balance 600 ml 540 ml Intake Oral 600 ml IV Total 540 ml # Voids 2 Labs Test 03/25/20 16:00 03/25/20 16:24 03/26/20 07:47 03/26/20 11:00 Urine Color Yellow Urine Appearance Slightly cloudy Urine pH 6.5 (4.5-8.0) Urine Specific [place] 1.010 (1.005-1.035) Urine Protein 1+ (NEGATIVE) Urine Glucose (UA) 3+ (NEGATIVE) Urine Ketones Negative (NEGATIVE) Urine Blood 2+ (NEGATIVE) Urine Nitrite Negative (NEGATIVE) Urine Bilirubin Negative (NEGATIVE) Urine Urobilinogen 1 MG/DL (0.0-1.0) Urine Leukocyte Esterase Negative (NEGATIVE) Urine RBC 5-10 /HPF (0 - 2) Urine WBC 0-2 /HPF (0 - 2) Urine Squamous Epithelial Cells Many /LPF (NONE/OCC) Urine Bacteria Few /HPF (NONE) Urine Yeast Few /HPF (NONE) White Blood Count 16.9 K/UL (4.8-10.8) 18.7 K/UL (4.8-10.8) Red Blood Count 4.84 M/UL (4.20-5.40) 4.34 M/UL (4.20-5.40) Hemoglobin 13.3 G/DL (12.0-16.0) 11.9 G/DL (12.0-16.0) Hematocrit 41.1 % (37.0-47.0) 37.0 % (37.0-47.0) Mean Corpuscular Volume 85 FL (80-99) 85 FL (80-99) Mean Corpuscular Hemoglobin 27.4 PG (27.0-31.0) 27.4 PG (27.0-31.0) Mean Corpuscular Hemoglobin Concent 32.3 G/DL (32.0-36.0) 32.2 G/DL (32.0-36.0) Red Cell Distribution Width 12.3 % (11.6-14.8) 12.0 % (11.6-14.8) Platelet Count 356 K/UL (150-450) 316 K/UL (150-450) Mean Platelet Volume 6.4 FL (6.5-10.1) 6.6 FL (6.5-10.1) Neutrophils (%) (Auto) 82.9 % (45.0-75.0) % (45.0-75.0) Lymphocytes (%) (Auto) 7.6 % (20.0-45.0) % (20.0-45.0) Monocytes (%) (Auto) 8.5 % (1.0-10.0) % (1.0-10.0) Eosinophils (%) (Auto) 0.1 % (0.0-3.0) % (0.0-3.0) Basophils (%) (Auto) 0.9 % (0.0-2.0) % (0.0-2.0) Prothrombin Time 12.3 SEC (9.30-11.50) Prothromb Time International Ratio 1.1 (0.9-1.1) Activated Partial Thromboplast Time 33 SEC (23-33) D-Dimer 14.26 mg/L FEU (0.00-0.49) Sodium Level 138 MMOL/L (136-145) 142 MMOL/L (136-145) Potassium Level 3.7 MMOL/L (3.5-5.1) 3.4 MMOL/L (3.5-5.1) Chloride Level 100 MMOL/L (98-107) 106 MMOL/L (98-107) Carbon Dioxide Level 31 MMOL/L (21-32) 27 MMOL/L (21-32) Anion Gap 7 mmol/L (5-15) 9 mmol/L (5-15) Blood Urea Nitrogen 10 mg/dL (7-18) 7 mg/dL (7-18) Creatinine 0.9 MG/DL (0.55-1.30) 0.8 MG/DL (0.55-1.30) Estimat Glomerular Filtration Rate > 60 mL/min (>60) > 60 mL/min (>60) Glucose Level 148 MG/DL (74-106) 167 MG/DL (74-106) Lactic Acid Level 1.80 mmol/L (0.4-2.0) Calcium Level 9.5 MG/DL (8.5-10.1) 8.9 MG/DL (8.5-10.1) Phosphorus Level 2.9 MG/DL (2.5-4.9) Magnesium Level 2.1 MG/DL (1.8-2.4) Ferritin 565 NG/ML (8-388) Total Bilirubin 1.1 MG/DL (0.2-1.0) Direct Bilirubin 0.2 MG/DL (0.0-0.3) Aspartate Amino Transf (AST/SGOT) 31 U/L (15-37) Alanine Aminotransferase (ALT/SGPT) 33 U/L (12-78) Alkaline Phosphatase 91 U/L (46-116) Lactate Dehydrogenase 284 U/L (81-234) Total Creatine Kinase 50 U/L (26-308) Creatine Kinase MB < 0.5 NG/ML (0.0-3.6) Creatine Kinase MB Relative Index 1.0 Troponin I 0.000 ng/mL (0.000-0.056) 0.000 ng/mL (0.000-0.056) C-Reactive Protein, Quantitative 21.5 mg/dL (0.00-0.90) Pro-B-Type Natriuretic Peptide 129 pg/mL (0-125) Total Protein 7.7 G/DL (6.4-8.2) Albumin 2.9 G/DL (3.4-5.0) Globulin 4.8 g/dL Albumin/Globulin Ratio 0.6 (1.0-2.7) Lipase 83 U/L (73-393) Differential Total Cells Counted 100 Neutrophils % (Manual) 84 % (45-75) Lymphocytes % (Manual) 5 % (20-45) Monocytes % (Manual) 11 % (1-10) Eosinophils % (Manual) 0 % (0-3) Basophils % (Manual) 0 % (0-2) Band Neutrophils 0 % (0-8) Platelet Estimate Adequate Platelet Morphology Normal Hypochromasia 1+ Test 03/26/20 18:55 03/27/20 02:50 Troponin I 0.000 ng/mL (0.000-0.056) 0.000 ng/mL (0.000-0.056) White Blood Count 19.2 K/UL (4.8-10.8) Red Blood Count 3.73 M/UL (4.20-5.40) Hemoglobin 10.5 G/DL (12.0-16.0) Hematocrit 31.3 % (37.0-47.0) Mean Corpuscular Volume 84 FL (80-99) Mean Corpuscular Hemoglobin 28.3 PG (27.0-31.0) Mean Corpuscular Hemoglobin Concent 33.6 G/DL (32.0-36.0) Red Cell Distribution Width 14.1 % (11.6-14.8) Platelet Count 272 K/UL (150-450) Mean Platelet Volume 6.4 FL (6.5-10.1) Neutrophils (%) (Auto) % (45.0-75.0) Lymphocytes (%) (Auto) % (20.0-45.0) Monocytes (%) (Auto) % (1.0-10.0) Eosinophils (%) (Auto) % (0.0-3.0) Basophils (%) (Auto) % (0.0-2.0) Sodium Level 136 MMOL/L (136-145) Potassium Level 4.0 MMOL/L (3.5-5.1) Chloride Level 103 MMOL/L (98-107) Carbon Dioxide Level 28 MMOL/L (21-32) Anion Gap 5 mmol/L (5-15) Blood Urea Nitrogen 8 mg/dL (7-18) Creatinine 0.7 MG/DL (0.55-1.30) Estimat Glomerular Filtration Rate > 60 mL/min (>60) Glucose Level 137 MG/DL (74-106) Calcium Level 8.6 MG/DL (8.5-10.1) Height (Feet): 5 Height (Inches): 4.00 Weight (Pounds): 145 Objective Physical Exam General: Awake and alert, no acute distress, mild fever, anxious appearing HEENT: NC/AT. EOMI. dry mucous membranes. Cardiovascular: Tachycardic. S1 and S2 normal. No murmur appreciated Resp: Normal work of breathing. No cough or wheezing during exam. ++crackles bilaterally. Abdomen: Abdomen is soft, nondistended. Nontender Skin: Intact. No abrasions, laceration or rash over the exposed skin MSK: Normal tone and bulk. Moving all extremities. Neuro: Awake and alert. Mentating appropriately. Kenny Aldana MD Mar 27, 2020 06:15
--- NOTE | 2020-03-27 07:21 | NUR ---
NURSE NOTES: Received patient report from AARON Talbert. Patient is AO x4 in bed, asleep at this time. No pain or discomfort noted at this time. Patient on 2L NC, breathing is even and unlabored with no signs of respiratory distress. Patient with L AC 18G patent and intact running D51/2 NS @60mL/hr. Bed in lowest position, locked with side rails x2 up. Call light within reach.
--- NOTE | 2020-03-27 07:34 | NUR ---
NURSE HAND-OFF REPORT: Important Events on Shift:[pt. with right posterior back pain, treated with PRN pain medication as ordered. Pt. ambulatory to bathroom with standby assist. low grade fever treated with tylenol] Patient Status: stable Diet: regular Pending Orders: na Pending Results/Labs:na Pending MD notification:na Latest Vital Signs: Temperature 98.7 , Pulse 74 , B/P 102 /59 , Respiratory Rate 18 , O2 SAT 97 , Nasal Cannula, O2 Flow Rate 2.0 . Vital Sign Comment: stable EKG Rhythm: Sinus Rhythm Rhythm change?: N MD Notified?: - MD Response: Latest [place] Fall Score: 30 Fall Risk: Medium Risk Safety Measures: Call light Within Reach, Bed Alarm Zone 1, Side Rails Side Rails x2, Bed position Low and Locked. Fall Precautions: Patient Fall Education Report given to ARAON Jewell.
[2020-03-27 08:00] VITALS: BP 127/76
[2020-03-27] MEDS: Enoxaparin 60mg Inj SUBQ SCH ×2 (08:09→20:11)
[2020-03-27] MEDS: Docusate 100mg cap ORAL SCH ×2 (08:09→17:08)
--- NOTE | 2020-03-27 08:32 | Infectious Diseases Prog Note ---
Assessment/Plan 69yo F with: Febrile to 100.8 Back pain Pulmonary embolus, acute R/o COVID Satting well on 2L NC Leukocytosis to 16 Lymphopenia 2/ COVID PCR p BCx p UA neg, UCx neg CTA chest: 1. Right posterior basal segmental pulmonary embolism extending into the subsegmental pulmonary arteries. No evidence of right heart strain. 2. Right lung base airspace opacities likely sequela of ischemia from pulmonary embolism. 3. Left lung base atelectasis. Underlying concomitant infectious process is not definitively excluded. 4. Bilateral thyroid nodules. Flu neg Cr 0.9 Plan: Stop CTX #2 for possible pna Start Zosyn #1 empiric given ongoing fevers, leukocytosis (though could also all be 2/2 PE) Anticoagulation for PE per primary No indication for empiric steroids for possible COVID at this time given good O2 sat F/u COVID PCR F/u BCx Trend WBC Monitor CBC/CMP Monitor temp curve, hemodynamics Monitor resp status D/w RN Thank you for this consult. [facility] will continue to follow. Subjective Allergies: Coded Allergies: No Known Allergies (Unverified , 04/08/19) Tmax 101.8 - improved temp curve today though Satting well on 2L NC WBC up to 19 NAD in bed Still w/ pleuritic CP, fish on R lower chest/back Objective Last 24 Hour Vital Signs Date Time Temp Pulse Resp B/P (MAP) Pulse Ox O2 Delivery O2 Flow Rate FiO2 03/27/20 04:00 74 03/27/20 04:00 98.7 74 18 102/59 (73) 97 03/27/20 00:59 99.5 03/27/20 00:00 101.8 97 20 120/64 (82) 100 03/27/20 00:00 97 03/26/20 21:00 Nasal Cannula 2.0 03/26/20 20:00 98.5 84 17 119/64 (82) 99 03/26/20 20:00 84 03/26/20 16:57 98.6 03/26/20 16:00 98.6 89 20 103/52 (69) 93 03/26/20 16:00 87 03/26/20 12:58 100.4 03/26/20 12:00 103 03/26/20 12:00 100.6 100 20 112/53 (72) 94 03/26/20 09:00 Room Air Height (Feet): 5 Height (Inches): 4.00 Weight (Pounds): 145 Cardiovascular: normal peripheral pulses Gen: NAD HEENT: NCAT Pulm: BL chest rise Abd: Non-distended Ext: No c/c/e Skin: No visible rashes Neuro: Awake Microbiology Date/Time Source Procedure Growth Status 03/25/20 20:30 Nasal Nares - Final Complete 03/25/20 20:30 Nasal Nares - Final Complete 03/25/20 16:00 Urine,Clean Catch Urine Culture - Preliminary NO GROWTH Resulted Laboratory Tests Test 03/26/20 11:00 03/26/20 18:55 03/27/20 02:50 Troponin I 0.000 ng/mL (0.000-0.056) 0.000 ng/mL (0.000-0.056) 0.000 ng/mL (0.000-0.056) White Blood Count 19.2 K/UL (4.8-10.8) H Red Blood Count 3.73 M/UL (4.20-5.40) L Hemoglobin 10.5 G/DL (12.0-16.0) L Hematocrit 31.3 % (37.0-47.0) L Mean Corpuscular Volume 84 FL (80-99) Mean Corpuscular Hemoglobin 28.3 PG (27.0-31.0) Mean Corpuscular Hemoglobin Concent 33.6 G/DL (32.0-36.0) Red Cell Distribution Width 14.1 % (11.6-14.8) Platelet Count 272 K/UL (150-450) Mean Platelet Volume 6.4 FL (6.5-10.1) L Neutrophils (%) (Auto) % (45.0-75.0) Lymphocytes (%) (Auto) % (20.0-45.0) Monocytes (%) (Auto) % (1.0-10.0) Eosinophils (%) (Auto) % (0.0-3.0) Basophils (%) (Auto) % (0.0-2.0) Neutrophils % (Manual) Pending Lymphocytes % (Manual) Pending Platelet Estimate Pending Platelet Morphology Pending Sodium Level 136 MMOL/L (136-145) Potassium Level 4.0 MMOL/L (3.5-5.1) Chloride Level 103 MMOL/L (98-107) Carbon Dioxide Level 28 MMOL/L (21-32) Anion Gap 5 mmol/L (5-15) Blood Urea Nitrogen 8 mg/dL (7-18) Creatinine 0.7 MG/DL (0.55-1.30) Estimat Glomerular Filtration Rate > 60 mL/min (>60) Glucose Level 137 MG/DL (74-106) H Calcium Level 8.6 MG/DL (8.5-10.1) Current Medications Medications (Trade) Dose Ordered Sig/Magda Route PRN Reason Start Time Stop Time Status Last Admin Dose Admin Acetaminophen (Tylenol) 650 mg Q6H PRN ORAL Mild Pain/Fever 100.5 F 03/26/20 00:00 04/25/20 00:00 03/27/20 00:29 Acetaminophen/ Hydrocodone Bitart ([place] 5/325) 1 tab Q6H PRN ORAL For Pain 4-10 03/26/20 13:45 04/02/20 13:44 03/27/20 01:04 Bisacodyl (Dulcolax) 10 mg DAILYPRN PRN RECTAL Constipation 03/26/20 09:15 06/24/20 09:14 Ceftriaxone Sodium 1 gm/ Dextrose 55 ml @ 110 mls/hr Q24H IVPB 03/26/20 18:00 04/02/20 17:59 03/26/20 17:37 Dextrose/Sodium Chloride 1,000 ml @ 60 mls/hr [id number] IV 03/26/20 08:15 04/25/20 08:14 03/27/20 00:29 Docusate Sodium (Colace) 100 mg TWICE A DAY ORAL 03/26/20 10:00 04/25/20 09:59 03/27/20 08:09 Enoxaparin Sodium (Lovenox) 60 mg EVERY 12 HOURS SUBQ 03/26/20 09:00 06/24/20 08:59 03/27/20 08:09 Guaifenesin/ Dextromethorphan (Robitussin DM Syrup) 15 ml Q6H PRN ORAL For Cough 03/26/20 03:00 06/24/20 02:59 03/26/20 16:26 Ibuprofen (Motrin) 600 mg Q8H PRN ORAL For Pain 03/26/20 00:00 04/25/20 00:00 03/26/20 02:14 Iohexol (Omnipaque 350 100ml) 100 ml NOW PRN INJ Radiology Procedure 03/25/20 20:00 03/27/20 19:59 Magnesium Hydroxide (Mom) 30 ml DAILYPRN PRN ORAL Constipation 03/26/20 09:15 04/25/20 09:14 03/26/20 16:27 Midodrine (Pro-Amatine) 5 mg THREE TIMES A DAY ORAL 03/26/20 13:00 06/24/20 12:59 03/27/20 08:09 Lor Millan M.D. Mar 27, 2020 08:32
--- NOTE | 2020-03-27 08:50 | NUR ---
CASE MANAGEMENT:REVIEW 03/27/20 SI: PNA. PULMONARY EMBOLIA. PUI 101.8 97 20 120/64 100% ON 2L/NC WBC+19.2 IS: IV ZOSYN Q8HRS IVF@60/HR MIDODRINE PO TID LOVENOX SQ Q12 : TELEMETRY STATUS DCP; FROM HOME
--- NOTE | 2020-03-27 09:26 | General Progress Note ---
Subjective Constitutional: Reports: weakness Allergies: Coded Allergies: No Known Allergies (Unverified , 04/08/19) All Systems: reviewed and negative except above Subjective o2nc calm in bed Objective Last 24 Hour Vital Signs Date Time Temp Pulse Resp B/P (MAP) Pulse Ox O2 Delivery O2 Flow Rate FiO2 03/27/20 04:00 74 03/27/20 04:00 98.7 74 18 102/59 (73) 97 03/27/20 00:59 99.5 03/27/20 00:00 101.8 97 20 120/64 (82) 100 03/27/20 00:00 97 03/26/20 21:00 Nasal Cannula 2.0 03/26/20 20:00 98.5 84 17 119/64 (82) 99 03/26/20 20:00 84 03/26/20 16:57 98.6 03/26/20 16:00 98.6 89 20 103/52 (69) 93 03/26/20 16:00 87 03/26/20 12:58 100.4 03/26/20 12:00 103 03/26/20 12:00 100.6 100 20 112/53 (72) 94 Intake and Output 03/26/20 03/27/20 19:00 07:00 Intake Total 600 ml 1200 ml Balance 600 ml 1200 ml Intake Oral 600 ml IV Total 1200 ml # Voids 2 2 Laboratory Tests 03/26/20 11:00: Troponin I 0.000 03/26/20 18:55: Troponin I 0.000 03/27/20 02:50: Troponin I 0.000, White Blood Count 19.2H, Red Blood Count 3.73L, Hemoglobin 10.5L, Hematocrit 31.3L, Mean Corpuscular Volume 84, Mean Corpuscular Hemoglobin 28.3, Mean Corpuscular Hemoglobin Concent 33.6, Red Cell Distribution Width 14.1, Platelet Count 272, Mean Platelet Volume 6.4L, Neutrophils (%) (Auto) , Lymphocytes (%) (Auto) , Monocytes (%) (Auto) , Eosinophils (%) (Auto) , Basophils (%) (Auto) , Differential Total Cells Counted 100, Neutrophils % (Manual) 87H, Lymphocytes % (Manual) 7L, Monocytes % (Manual) 6, Eosinophils % (Manual) 0, Basophils % (Manual) 0, Band Neutrophils 0, Platelet Estimate A dequate, Platelet Morphology Normal, Anisocytosis 1+, Sodium Level 136, Potassium Level 4.0, Chloride Level 103, Carbon Dioxide Level 28, Anion Gap 5, Blood Urea Nitrogen 8, Creatinine 0.7, Estimat Glomerular Filtration Rate > 60, Glucose Level 137H, Calcium Level 8.6 Height (Feet): 5 Height (Inches): 4.00 Weight (Pounds): 145 General Appearance: lethargic EENT: normal ENT inspection Neck: normal alignment Cardiovascular: normal peripheral pulses, normal rate, regular rhythm Respiratory/Chest: chest wall non-tender, lungs clear, normal breath sounds Abdomen: normal bowel sounds, non tender, soft Extremities: normal inspection Edema: no edema noted Arm (L), no edema noted Arm (R), no edema noted Leg (L), no edema noted Leg (R), no edema noted Pedal (L), no edema noted Pedal (R), no edema noted Generalized Neurologic: responsive, motor weakness Skin: normal pigmentation, warm/dry Assessment/Plan Problem List: (1) Pneumonia ICD Codes: J18.9 - Pneumonia, unspecified organism SNOMED: 365273023 (2) Suspected 2019 novel coronavirus infection ICD Codes: Z20.822 - Contact with and (suspected) exposure to COVID-19 SNOMED: 313199309 (3) Elevated d-dimer ICD Codes: R79.89 - Other specified abnormal findings of blood chemistry SNOMED: 528205848 (4) Vertigo ICD Codes: R42 - Dizziness and giddiness SNOMED: 944580151 Status: unchanged Assessment/Plan: o2 pulm tx abx cbc bmp am Nadir Moore DO Mar 27, 2020 09:26
--- NOTE | 2020-03-27 09:59 | Pulmonology Progress Note ---
Subjective ROS Limited/Unobtainable: No Interval Events: none major reported per nursing HEENT: Repors: no symptoms Respiratory: Reports: no symptoms Cardiovascular: Reports: no symptoms Gastrointestinal/Abdominal: Reports: no symptoms Musculoskeletal: Reports: pain, other - right mid back pain; better with ibuprofen and [place] Allergies: Coded Allergies: No Known Allergies (Unverified , 04/08/19) All Systems: reviewed and negative except above Objective Last 24 Hour Vital Signs Date Time Temp Pulse Resp B/P (MAP) Pulse Ox O2 Delivery O2 Flow Rate FiO2 03/27/20 09:00 Room Air 03/27/20 08:00 117 03/27/20 08:00 98.2 120 24 127/76 (93) 98 03/27/20 04:00 74 03/27/20 04:00 98.7 74 18 102/59 (73) 97 03/27/20 00:59 99.5 03/27/20 00:00 101.8 97 20 120/64 (82) 100 03/27/20 00:00 97 03/26/20 21:00 Nasal Cannula 2.0 03/26/20 20:00 98.5 84 17 119/64 (82) 99 03/26/20 20:00 84 03/26/20 16:57 98.6 03/26/20 16:00 98.6 89 20 103/52 (69) 93 03/26/20 16:00 87 03/26/20 12:58 100.4 03/26/20 12:00 103 03/26/20 12:00 100.6 100 20 112/53 (72) 94 Intake and Output 03/26/20 03/27/20 19:00 07:00 Intake Total 600 ml 1200 ml Balance 600 ml 1200 ml Intake Oral 600 ml IV Total 1200 ml # Voids 2 2 General Appearance: no acute distress HEENT: atraumatic Respiratory: crackles/rales Cardiovascular: regular rhythm, tachycardia Abdomen: soft, non tender Microbiology Date/Time Source Procedure Growth Status 03/25/20 20:30 Nasal Nares - Final Complete 03/25/20 20:30 Nasal Nares - Final Complete 03/25/20 16:00 Urine,Clean Catch Urine Culture - Preliminary NO GROWTH Resulted Laboratory Tests 03/26/20 11:00: Troponin I 0.000 03/26/20 18:55: Troponin I 0.000 03/27/20 02:50: Troponin I 0.000, White Blood Count 19.2H, Red Blood Count 3.73L, Hemoglobin 10.5L, Hematocrit 31.3L, Mean Corpuscular Volume 84, Mean Corpuscular Hemoglobin 28.3, Mean Corpuscular Hemoglobin Concent 33.6, Red Cell Distribution Width 14.1, Platelet Count 272, Mean Platelet Volume 6.4L, Neutrophils (%) (Auto) , Lymphocytes (%) (Auto) , Monocytes (%) (Auto) , Eosinophils (%) (Auto) , Basophils (%) (Auto) , Differential Total Cells Counted 100, Neutrophils % (Manual) 87H, Lymphocytes % (Manual) 7L, Monocytes % (Manual) 6, Eosinophils % (Manual) 0, Basophils % (Manual) 0, Band Neutrophils 0, Platelet Estimate Adequate, Platelet Morphology Normal, Anisocytosis 1+, Sodium Level 136, Potassium Level 4.0, Chloride Level 103, Carbon Dioxide Level 28, Anion Gap 5, Blood Urea Nitrogen 8, Creatinine 0.7, Estimat Glomerular Filtration Rate > 60, Glucose Level 137H, Calcium Level 8.6 Current Medications Medications (Trade) Dose Ordered Sig/Magda Route PRN Reason Start Time Stop Time Status Last Admin Dose Admin Acetaminophen (Tylenol) 650 mg Q6H PRN ORAL Mild Pain/Fever 100.5 F 03/26/20 00:00 04/25/20 00:00 03/27/20 00:29 Acetaminophen/ Hydrocodone Bitart ([place] 5/325) 1 tab Q6H PRN ORAL For Pain 4-10 03/26/20 13:45 04/02/20 13:44 03/27/20 01:04 Bisacodyl (Dulcolax) 10 mg DAILYPRN PRN RECTAL Constipation 03/26/20 09:15 06/24/20 09:14 Dextrose/Sodium Chloride 1,000 ml @ 60 mls/hr [id number] IV 03/26/20 08:15 04/25/20 08:14 03/27/20 00:29 Docusate Sodium (Colace) 100 mg TWICE A DAY ORAL 03/26/20 10:00 04/25/20 09:59 03/27/20 08:09 Enoxaparin Sodium (Lovenox) 60 mg EVERY 12 HOURS SUBQ 03/26/20 09:00 06/24/20 08:59 03/27/20 08:09 Guaifenesin/ Dextromethorphan (Robitussin DM Syrup) 15 ml Q6H PRN ORAL For Cough 03/26/20 03:00 06/24/20 02:59 03/26/20 16:26 Ibuprofen (Motrin) 600 mg Q8H PRN ORAL For Pain 03/26/20 00:00 04/25/20 00:00 03/26/20 02:14 Iohexol (Omnipaque 350 100ml) 100 ml NOW PRN INJ Radiology Procedure 03/25/20 20:00 03/27/20 19:59 Magnesium Hydroxide (Mom) 30 ml DAILYPRN PRN ORAL Constipation 03/26/20 09:15 04/25/20 09:14 03/26/20 16:27 Midodrine (Pro-Amatine) 5 mg THREE TIMES A DAY ORAL 03/26/20 13:00 06/24/20 12:59 03/27/20 08:09 Piperacillin Sod/ Tazobactam Sod 3.375 gm/Sodium Chloride 110 ml @ 27.5 mls/hr Q8H IVPB 03/27/20 10:00 04/03/20 09:59 Assessment/Plan Assessment/Plan 1. ?Pneumonia with fever and leukocytosis -On Abx empirically per ID 2. Normoxemia -No indication for steroids for possible Covid at this time given good saturation on room air/low flow oxygen 3. Pulmonary embolus, acute -Right posterior basal segmental PE extending into the subsegmental pulmonary arteries -Continue full dose Lovenox -Venous duplex US lower legs negative -Hypercoag work-up not needed due to age per heme onc 5. Elevated D-dimer -Duplex legs negative -On Lovenox 6. Thyroid nodules -Hematology oncology following 7. COVID-19 PUI -COVID-19 swab has been sent. The care for this patient was discussed with my supervising physician. Time spent for this case was approximately 31 minutes. Denzel Villalta Mar 27, 2020 09:59
--- NOTE | 2020-03-27 10:00 | Cardiac Electrophysiology PN ---
Assessment/Plan Assessment/Plan 1. SOB due to Acute PE (Right posterior basal segmental PE extending into the subsegmental pulmonary arteries) on Lovenox. TTT EF 55%. Being ruled out for Covid. Ruled out for SD 2. Possible PNA with WBC 18K on Abx per Dr Alonzo 3. Low K replaced 4. Low BP. On Midodrine 5 tid. Better now DW RN Subjective Subjective No CP or SOB. On Lovenox for PE. Echo EF 55%. BP 91/46. On RA. Being R/O for Covid Objective Last 24 Hour Vital Signs Date Time Temp Pulse Resp B/P (MAP) Pulse Ox O2 Delivery O2 Flow Rate FiO2 03/27/20 09:00 Room Air 03/27/20 08:00 117 03/27/20 08:00 98.2 120 24 127/76 (93) 98 03/27/20 04:00 74 03/27/20 04:00 98.7 74 18 102/59 (73) 97 03/27/20 00:59 99.5 03/27/20 00:00 101.8 97 20 120/64 (82) 100 03/27/20 00:00 97 03/26/20 21:00 Nasal Cannula 2.0 03/26/20 20:00 98.5 84 17 119/64 (82) 99 03/26/20 20:00 84 03/26/20 16:57 98.6 03/26/20 16:00 98.6 89 20 103/52 (69) 93 03/26/20 16:00 87 03/26/20 12:58 100.4 03/26/20 12:00 103 03/26/20 12:00 100.6 100 20 112/53 (72) 94 Intake and Output 03/26/20 03/27/20 19:00 07:00 Intake Total 600 ml 1200 ml Balance 600 ml 1200 ml Intake Oral 600 ml IV Total 1200 ml # Voids 2 2 Laboratory Tests Test 03/26/20 11:00 03/26/20 18:55 03/27/20 02:50 Troponin I 0.000 ng/mL (0.000-0.056) 0.000 ng/mL (0.000-0.056) 0.000 ng/mL (0.000-0.056) White Blood Count 19.2 K/UL (4.8-10.8) H Red Blood Count 3.73 M/UL (4.20-5.40) L Hemoglobin 10.5 G/DL (12.0-16.0) L Hematocrit 31.3 % (37.0-47.0) L Mean Corpuscular Volume 84 FL (80-99) Mean Corpuscular Hemoglobin 28.3 PG (27.0-31.0) Mean Corpuscular Hemoglobin Concent 33.6 G/DL (32.0-36.0) Red Cell Distribution Width 14.1 % (11.6-14.8) Platelet Count 272 K/UL (150-450) Mean Platelet Volume 6.4 FL (6.5-10.1) L Neutrophils (%) (Auto) % (45.0-75.0) Lymphocytes (%) (Auto) % (20.0-45.0) Monocytes (%) (Auto) % (1.0-10.0) Eosinophils (%) (Auto) % (0.0-3.0) Basophils (%) (Auto) % (0.0-2.0) Differential Total Cells Counted 100 Neutrophils % (Manual) 87 % (45-75) H Lymphocytes % (Manual) 7 % (20-45) L Monocytes % (Manual) 6 % (1-10) Eosinophils % (Manual) 0 % (0-3) Basophils % (Manual) 0 % (0-2) Band Neutrophils 0 % (0-8) Platelet Estimate Adequate Platelet Morphology Normal Anisocytosis 1+ Sodium Level 136 MMOL/L (136-145) Potassium Level 4.0 MMOL/L (3.5-5.1) Chloride Level 103 MMOL/L (98-107) Carbon Dioxide Level 28 MMOL/L (21-32) Anion Gap 5 mmol/L (5-15) Blood Urea Nitrogen 8 mg/dL (7-18) Creatinine 0.7 MG/DL (0.55-1.30) Estimat Glomerular Filtration Rate > 60 mL/min (>60) Glucose Level 137 MG/DL (74-106) H Calcium Level 8.6 MG/DL (8.5-10.1) Microbiology Date/Time Source Procedure Growth Status 03/25/20 20:30 Nasal Nares - Final Complete 03/25/20 20:30 Nasal Nares - Final Complete 03/25/20 16:00 Urine,Clean Catch Urine Culture - Preliminary NO GROWTH Resulted Objective GENERAL: Sleeping in bed, O2 NC, slight short of breath. No JVD CARDIOVASCULAR: RRR, No murmur. LUNGS: Poor air exchange. ABDOMEN: Bowel sounds distant. EXTREMITIES: No cyanosis, clubbing, or edema. NEUROLOGIC: moves all extremities, slightly weak. David Meek MD Mar 27, 2020 10:00
[2020-03-27] MEDS: Piperacillin/Tazobactam 3.375 GM in NS 110 ML IVPB SCH ×2 (11:07→17:07)
[2020-03-27 12:00] VITALS: BP 128/73
[2020-03-27 16:00] VITALS: BP 109/55
--- NOTE | 2020-03-27 16:19 | Cardiology Report ---
APPROVED REPORT EKG Measurement Heart [id number] <Conclusion> Normal sinus rhythm Nonspecific T wave abnormality Abnormal ECG
[2020-03-27] MEDS ORDERED: ARTIFICIAL TEAR15 ML BOTH EYES (17:34)
--- NOTE | 2020-03-27 18:54 | NUR ---
NURSE HAND-OFF REPORT: Important Events on Shift:NA Patient Status: Stable/ full code Diet: Regular Pending Orders: NA Pending Results/Labs:NA Pending MD notification:NA Latest Vital Signs: Temperature 97.9 , Pulse 98 , B/P 109 /55 , Respiratory Rate 20 , O2 SAT 98 , Nasal Cannula, O2 Flow Rate 2.0 . Vital Sign Comment: Stable EKG Rhythm: Sinus Rhythm Rhythm change?: N MD Notified?: - MD Response: Latest Duran Fall Score: 30 Fall Risk: Medium Risk Safety Measures: Call light Within Reach, Bed Alarm Zone 1, Side Rails Side Rails x2, Bed position Low and Locked. Fall Precautions: Patient Fall Education Report given to Pending RN assignment. Addendum: 03/27/20 at 1921 by Fanta Tobar RN Report given to AARON Regan
--- NOTE | 2020-03-27 19:12 | NUR ---
NURSE NOTES: Pt. received from AARON Jewell. Pt. AAOx4, breathing even and unlabored on 2L NC, no indications of respiratory distress at this time, no complaints of pain. IV noted left AC 18g D5 1/2 NS at 60cc running well. Bed low and locked, side rails x3 up, and call light in reach.
[2020-03-27 20:00] VITALS: BP 147/88
[2020-03-28] VITALS: BP 144/80
--- NOTE | 2020-03-28 01:57 | Cardiology Report ---
APPROVED REPORT EKG Measurement Heart [id number] <Conclusion> Normal sinus rhythm Normal ECG
[2020-03-28] MEDS: Piperacillin/Tazobactam 3.375 GM in NS 110 ML IVPB SCH ×3 (02:17→17:30)
[2020-03-28 04:00] VITALS: BP 129/74
[2020-03-28] MEDS: HYDROcodone/Acetamin 5/325 tab ORAL PRN ×2 (04:34→17:29)
--- NOTE | 2020-03-28 06:28 | Hematology/Onc Progress Note ---
Assessment/Plan Assessment/Plan Assessment and Recs # Right posterior basal segmental pulmonary embolism extending into the subsegmental pulmonary arteries. No evidence of right heart strain. Right lung base airspace opacities likely sequela of ischemia from pulmonary embolism. --> anticoagulation has been started lovenox bid --> r/o bleeding --> venous duplex lower legs--> NEG --> hypercoag w/u not needed due to age # Elevated ddimer r/o infection --> duplex legs as needed # Anemia of chronic disease --> hgb 10 --> no bleeding at this time --> ferritin is elev # Leukocytosis due to reactive process --> abx as needed --> smear is noted --> on abx --> r/o covid --> wbc 19 # Pneumonia -> abx as needed zosyn # Thyroid nodule -> r/o nodules -> us thyroid as needed # Dvt ppx lovenox bid Appreciate consultation and asif Rn Subjective Constitutional: Denies: no symptoms, chills, fever, malaise, weakness, other HEENT: Denies: no symptoms, eye pain, blurred vision, tearing, double vision, ear pain, ear discharge, nose pain, nose congestion, throat pain, throat swelling, mouth pain, mouth swelling, other Cardiovascular: Denies: no symptoms, chest pain, edema, irregular heart rate, lightheadedness, palpitations, syncope, other Respiratory: Denies: no symptoms, cough, shortness of breath, SOB with excertion, SOB at rest, sputum, wheezing, other Gastrointestinal/Abdominal: Denies: no symptoms, abdomen distended, abdominal pain, black stools, tarry stools, blood in stool, constipated, diarrhea, difficulty swallowing, nausea, poor appetite, poor fluid intake, rectal bleeding, vomiting, other Genitourinary: Denies: no symptoms, burning, discharge, frequency, flank pain, hematuria, incontinence, pain, urgency, other Neurologic/Psychiatric: Denies: no symptoms, anxiety, depressed, emotional problems, headache, numbness, paresthesia, pre-existing deficit, seizure, tingling, tremors, weakness, other Endocrine: Denies: no symptoms, excessive sweating, flushing, intolerance to cold, intolerance to heat, increased hunger, increased thirst, increased urine, unexplained weight gain, unexplained weight loss, other Allergies: Coded Allergies: No Known Allergies (Unverified , 04/08/19) Subjective 03/27 on nc, with back pain, on ivf, labs are noted, downtrending hgb 03/28 zosyn noted, being rule out for covid, meds reviewed Objective Objective Current Medications Medications (Trade) Dose Ordered Sig/Magda Route PRN Reason Start Time Stop Time Status Last Admin Dose Admin Acetaminophen (Tylenol) 650 mg Q6H PRN ORAL Mild Pain/Fever 100.5 F 03/26/20 00:00 04/25/20 00:00 03/27/20 20:25 Acetaminophen/ Hydrocodone Bitart ([place] 5/325) 1 tab Q6H PRN ORAL For Pain 4-10 03/26/20 13:45 04/02/20 13:44 03/28/20 04:34 Bisacodyl (Dulcolax) 10 mg DAILYPRN PRN RECTAL Constipation 03/26/20 09:15 06/24/20 09:14 Dextrose/Sodium Chloride 1,000 ml @ 60 mls/hr [id number] IV 03/26/20 08:15 04/25/20 08:14 03/27/20 17:09 Docusate Sodium (Colace) 100 mg TWICE A DAY ORAL 03/26/20 10:00 04/25/20 09:59 03/27/20 17:08 Enoxaparin Sodium (Lovenox) 60 mg EVERY 12 HOURS SUBQ 03/26/20 09:00 06/24/20 08:59 03/27/20 20:11 Guaifenesin/ Dextromethorphan (Robitussin DM Syrup) 15 ml Q6H PRN ORAL For Cough 03/26/20 03:00 06/24/20 02:59 03/26/20 16:26 Ibuprofen (Motrin) 600 mg Q8H PRN ORAL For Pain 03/26/20 00:00 04/25/20 00:00 03/28/20 04:33 Magnesium Hydroxide (Mom) 30 ml DAILYPRN PRN ORAL Constipation 03/26/20 09:15 04/25/20 09:14 03/26/20 16:27 Midodrine (Pro-Amatine) 5 mg THREE TIMES A DAY ORAL 03/26/20 13:00 06/24/20 12:59 03/27/20 17:08 Piperacillin Sod/ Tazobactam Sod 3.375 gm/Sodium Chloride 110 ml @ 27.5 mls/hr Q8H IVPB 03/27/20 10:00 04/03/20 09:59 03/28/20 02:17 Last 24 Hour Vital Signs Date Time Temp Pulse Resp B/P (MAP) Pulse Ox O2 Delivery O2 Flow Rate FiO2 03/28/20 04:00 97.8 112 20 129/74 (92) 97 03/28/20 04:00 98 03/28/20 00:00 89 03/28/20 00:00 98.6 90 18 144/80 (101) 98 03/27/20 21:00 Nasal Cannula 2.0 03/27/20 20:55 98.9 03/27/20 20:00 100.5 97 18 147/88 (107) 98 03/27/20 20:00 94 03/27/20 16:00 98 03/27/20 16:00 97.9 98 20 109/55 (73) 98 03/27/20 13:52 99.6 03/27/20 12:00 114 03/27/20 12:00 99.8 127 21 128/73 (91) 98 03/27/20 09:00 Room Air 03/27/20 08:00 117 03/27/20 08:00 98.2 120 24 127/76 (93) 98 03/27/20 04:00 74 03/27/20 04:00 98.7 74 18 102/59 (73) 97 03/27/20 00:59 99.5 03/27/20 00:00 101.8 97 20 120/64 (82) 100 03/27/20 00:00 97 03/26/20 21:00 Nasal Cannula 2.0 03/26/20 20:00 98.5 84 17 119/64 (82) 99 03/26/20 20:00 84 03/26/20 16:57 98.6 03/26/20 16:00 98.6 89 20 103/52 (69) 93 03/26/20 16:00 87 03/26/20 12:58 100.4 03/26/20 12:00 103 03/26/20 12:00 100.6 100 20 112/53 (72) 94 03/26/20 09:00 Room Air 03/26/20 08:00 98 03/26/20 07:54 98.2 105 18 91/48 (62) 100 Intake and Output 03/27/20 03/28/20 19:00 07:00 Intake Total 490.0 ml 890 ml Balance 490.0 ml 890 ml Intake Oral 320 ml 890 ml IV Total 170.0 ml # Voids 2 3 Labs Test 03/25/20 16:00 03/25/20 16:24 03/26/20 07:47 03/26/20 11:00 Urine Color Yellow Urine Appearance Slightly cloudy Urine pH 6.5 (4.5-8.0) Urine Specific [place] 1.010 (1.005-1.035) Urine Protein 1+ (NEGATIVE) Urine Glucose (UA) 3+ (NEGATIVE) Urine Ketones Negative (NEGATIVE) Urine Blood 2+ (NEGATIVE) Urine Nitrite Negative (NEGATIVE) Urine Bilirubin Negative (NEGATIVE) Urine Urobilinogen 1 MG/DL (0.0-1.0) Urine Leukocyte Esterase Negative (NEGATIVE) Urine RBC 5-10 /HPF (0 - 2) Urine WBC 0-2 /HPF (0 - 2) Urine Squamous Epithelial Cells Many /LPF (NONE/OCC) Urine Bacteria Few /HPF (NONE) Urine Yeast Few /HPF (NONE) White Blood Count 16.9 K/UL (4.8-10.8) 18.7 K/UL (4.8-10.8) Red Blood Count 4.84 M/UL (4.20-5.40) 4.34 M/UL (4.20-5.40) Hemoglobin 13.3 G/DL (12.0-16.0) 11.9 G/DL (12.0-16.0) Hematocrit 41.1 % (37.0-47.0) 37.0 % (37.0-47.0) Mean Corpuscular Volume 85 FL (80-99) 85 FL (80-99) Mean Corpuscular Hemoglobin 27.4 PG (27.0-31.0) 27.4 PG (27.0-31.0) Mean Corpuscular Hemoglobin Concent 32.3 G/DL (32.0-36.0) 32.2 G/DL (32.0-36.0) Red Cell Distribution Width 12.3 % (11.6-14.8) 12.0 % (11.6-14.8) Platelet Count 356 K/UL (150-450) 316 K/UL (150-450) Mean Platelet Volume 6.4 FL (6.5-10.1) 6.6 FL (6.5-10.1) Neutrophils (%) (Auto) 82.9 % (45.0-75.0) % (45.0-75.0) Lymphocytes (%) (Auto) 7.6 % (20.0-45.0) % (20.0-45.0) Monocytes (%) (Auto) 8.5 % (1.0-10.0) % (1.0-10.0) Eosinophils (%) (Auto) 0.1 % (0.0-3.0) % (0.0-3.0) Basophils (%) (Auto) 0.9 % (0.0-2.0) % (0.0-2.0) Prothrombin Time 12.3 SEC (9.30-11.50) Prothromb Time International Ratio 1.1 (0.9-1.1) Activated Partial Thromboplast Time 33 SEC (23-33) D-Dimer 14.26 mg/L FEU (0.00-0.49) Sodium Level 138 MMOL/L (136-145) 142 MMOL/L (136-145) Potassium Level 3.7 MMOL/L (3.5-5.1) 3.4 MMOL/L (3.5-5.1) Chloride Level 100 MMOL/L (98-107) 106 MMOL/L (98-107) Carbon Dioxide Level 31 MMOL/L (21-32) 27 MMOL/L (21-32) Anion Gap 7 mmol/L (5-15) 9 mmol/L (5-15) Blood Urea Nitrogen 10 mg/dL (7-18) 7 mg/dL (7-18) Creatinine 0.9 MG/DL (0.55-1.30) 0.8 MG/DL (0.55-1.30) Estimat Glomerular Filtration Rate > 60 mL/min (>60) > 60 mL/min (>60) Glucose Level 148 MG/DL (74-106) 167 MG/DL (74-106) Lactic Acid Level 1.80 mmol/L (0.4-2.0) Calcium Level 9.5 MG/DL (8.5-10.1) 8.9 MG/DL (8.5-10.1) Phosphorus Level 2.9 MG/DL (2.5-4.9) Magnesium Level 2.1 MG/DL (1.8-2.4) Ferritin 565 NG/ML (8-388) Total Bilirubin 1.1 MG/DL (0.2-1.0) Direct Bilirubin 0.2 MG/DL (0.0-0.3) Aspartate Amino Transf (AST/SGOT) 31 U/L (15-37) Alanine Aminotransferase (ALT/SGPT) 33 U/L (12-78) Alkaline Phosphatase 91 U/L (46-116) Lactate Dehydrogenase 284 U/L (81-234) Total Creatine Kinase 50 U/L (26-308) Creatine Kinase MB < 0.5 NG/ML (0.0-3.6) Creatine Kinase MB Relative Index 1.0 Troponin I 0.000 ng/mL (0.000-0.056) 0.000 ng/mL (0.000-0.056) C-Reactive Protein, Quantitative 21.5 mg/dL (0.00-0.90) Pro-B-Type Natriuretic Peptide 129 pg/mL (0-125) Total Protein 7.7 G/DL (6.4-8.2) Albumin 2.9 G/DL (3.4-5.0) Globulin 4.8 g/dL Albumin/Globulin Ratio 0.6 (1.0-2.7) Lipase 83 U/L (73-393) Differential Total Cells Counted 100 Neutrophils % (Manual) 84 % (45-75) Lymphocytes % (Manual) 5 % (20-45) Monocytes % (Manual) 11 % (1-10) Eosinophils % (Manual) 0 % (0-3) Basophils % (Manual) 0 % (0-2) Band Neutrophils 0 % (0-8) Platelet Estimate Adequate Platelet Morphology Normal Hypochromasia 1+ Test 03/26/20 18:55 03/27/20 02:50 Troponin I 0.000 ng/mL (0.000-0.056) 0.000 ng/mL (0.000-0.056) White Blood Count 19.2 K/UL (4.8-10.8) Red Blood Count 3.73 M/UL (4.20-5.40) Hemoglobin 10.5 G/DL (12.0-16.0) Hematocrit 31.3 % (37.0-47.0) Mean Corpuscular Volume 84 FL (80-99) Mean Corpuscular Hemoglobin 28.3 PG (27.0-31.0) Mean Corpuscular Hemoglobin Concent 33.6 G/DL (32.0-36.0) Red Cell Distribution Width 14.1 % (11.6-14.8) Platelet Count 272 K/UL (150-450) Mean Platelet Volume 6.4 FL (6.5-10.1) Neutrophils (%) (Auto) % (45.0-75.0) Lymphocytes (%) (Auto) % (20.0-45.0) Monocytes (%) (Auto) % (1.0-10.0) Eosinophils (%) (Auto) % (0.0-3.0) Basophils (%) (Auto) % (0.0-2.0) Differential Total Cells Counted 100 Neutrophils % (Manual) 87 % (45-75) Lymphocytes % (Manual) 7 % (20-45) Monocytes % (Manual) 6 % (1-10) Eosinophils % (Manual) 0 % (0-3) Basophils % (Manual) 0 % (0-2) Band Neutrophils 0 % (0-8) Platelet Estimate Adequate Platelet Morphology Normal Anisocytosis 1+ Sodium Level 136 MMOL/L (136-145) Potassium Level 4.0 MMOL/L (3.5-5.1) Chloride Level 103 MMOL/L (98-107) Carbon Dioxide Level 28 MMOL/L (21-32) Anion Gap 5 mmol/L (5-15) Blood Urea Nitrogen 8 mg/dL (7-18) Creatinine 0.7 MG/DL (0.55-1.30) Estimat Glomerular Filtration Rate > 60 mL/min (>60) Glucose Level 137 MG/DL (74-106) Calcium Level 8.6 MG/DL (8.5-10.1) Height (Feet): 5 Height (Inches): 4.00 Weight (Pounds): 145 Objective Physical Exam General: Awake and alert, no acute distress, mild fever, anxious appearing HEENT: NC/AT. EOMI. dry mucous membranes. Cardiovascular: Tachycardic. S1 and S2 normal. No murmur appreciated Resp: Normal work of breathing. No cough or wheezing during exam. ++crackles bilaterally. Abdomen: Abdomen is soft, nondistended. Nontender Skin: Intact. No abrasions, laceration or rash over the exposed skin MSK: Normal tone and bulk. Moving all extremities. Neuro: Awake and alert. Mentating appropriately. Kenny Aldana MD Mar 28, 2020 06:28
--- NOTE | 2020-03-28 06:49 | NUR ---
NURSE HAND-OFF REPORT: Important Events on Shift: Keeping pain under control from PE. Patient Status: Stable Diet: Regular Pending Orders: Pending Results/Labs: Pending MD notification: Latest Vital Signs: Temperature 97.8 , Pulse 112 , B/P 129 /74 , Respiratory Rate 20 , O2 SAT 97 , Nasal Cannula, O2 Flow Rate 2.0 . Vital Sign Comment: EKG Rhythm: Sinus Rhythm Rhythm change?: N MD Notified?: - MD Response: Latest Duran Fall Score: 30 Fall Risk: Medium Risk Safety Measures: Call light Within Reach, Bed Alarm Zone 1, Side Rails Side Rails x2, Bed position Low and Locked. Fall Precautions: Patient Fall Education Report given to Ami.
[2020-03-28 06:56] LABS: HEMATOCRIT 33.1 % (37.0-47.0); HEMOGLOBIN 11.2 G/DL (12.0-16.0); MEAN CORPUSCULAR VOLUME 84 FL (80-99); PLATELET COUNT 300 K/UL (150-450); RED BLOOD COUNT 3.93 M/UL (4.20-5.40); RED CELL DISTRIBUTION WIDTH 12.2 % (11.6-14.8); WHITE BLOOD COUNT 17.8 K/UL (4.8-10.8)
[2020-03-28 07:42] LABS: ANION GAP 8 mmol/L (5-15); BLOOD UREA NITROGEN 8 mg/dL (7-18); CALCIUM 8.8 MG/DL (8.5-10.1); CARBON DIOXIDE 27 MMOL/L (21-32); CHLORIDE 101 MMOL/L (98-107); CREATININE 0.8 MG/DL (0.55-1.30); POTASSIUM 3.6 MMOL/L (3.5-5.1); SODIUM 136 MMOL/L (136-145)
--- NOTE | 2020-03-28 07:52 | NUR ---
CASE MANAGEMENT:REVIEW 03/28/20 SI: PNA. PULMONARY EMBOLI. COVID NEGATIVE 97.8 112 20 129/74 97% ON 2L/NC WBC+17.8 IS: IV ZOSYN Q8HRS IVF@60/HR MIDODRINE PO TID LOVENOX SQ Q12 : TELEMETRY STATUS DCP; FROM HOME PLAN: WILL NEED TO WEAN TO ROOM AIR PRIOR TO DISCHARGE
[2020-03-28 08:00] VITALS: BP 105/55
--- NOTE | 2020-03-28 08:32 | Infectious Diseases Prog Note ---
Assessment/Plan 69yo F with: Febrile to 100.8 Back pain Pulmonary embolus, acute R/o COVID Satting well on 2L NC Leukocytosis to 16 Lymphopenia 2/7 COVID PCR neg BCx NTD UA neg, UCx mixed jono CTA chest: 1. Right posterior basal segmental pulmonary embolism extending into the subsegmental pulmonary arteries. No evidence of right heart strain. 2. Right lung base airspace opacities likely sequela of ischemia from pulmonary embolism. 3. Left lung base atelectasis. Underlying concomitant infectious process is not definitively excluded. 4. Bilateral thyroid nodules. Flu neg Cr 0.9 Plan: Cont Zosyn #2 empiric given ongoing fevers, leukocytosis (though could also all be 2/2 PE) On discharge can transition to levofloxacin 500mg PO daily to complete 7-10 day course for possible pneumonia Anticoagulation for PE per primary F/u BCx - NTD Trend WBC / SP CTX #2 empiric Monitor CBC/CMP Monitor temp curve, hemodynamics Monitor resp status D/w RN Thank you for this consult. [facility] will continue to follow. Subjective Allergies: Coded Allergies: No Known Allergies (Unverified , 04/08/19) Tmax 100.5 Satting well on 2L NC COVID PCR neg WBC improving to 17 Still w/ intermittent SOB, cough and pain w/ deep breathing. Denies any fevers Objective Last 24 Hour Vital Signs Date Time Temp Pulse Resp B/P (MAP) Pulse Ox O2 Delivery O2 Flow Rate FiO2 03/28/20 04:00 97.8 112 20 129/74 (92) 97 03/28/20 04:00 98 03/28/20 00:00 89 03/28/20 00:00 98.6 90 18 144/80 (101) 98 03/27/20 21:00 Nasal Cannula 2.0 03/27/20 20:55 98.9 03/27/20 20:00 100.5 97 18 147/88 (107) 98 03/27/20 20:00 94 03/27/20 16:00 98 03/27/20 16:00 97.9 98 20 109/55 (73) 98 03/27/20 13:52 99.6 03/27/20 12:00 114 03/27/20 12:00 99.8 127 21 128/73 (91) 98 03/27/20 09:00 Room Air Height (Feet): 5 Height (Inches): 4.00 Weight (Pounds): 145 Gen: NAD HEENT: NCAT Pulm: BL chest rise on NC, non-labored Abd: Non-distended Ext: No c/c/e Skin: No visible rashes Neuro: Awake, alert, interactive Microbiology Date/Time Source Procedure Growth Status 03/25/20 20:30 Nasal Nares - Final Complete 03/25/20 20:30 Nasal Nares - Final Complete 03/25/20 20:30 Nasopharynx Coronavirus COVID-19 PCR ([facility]) - Final Complete 03/25/20 16:24 Blood Blood Culture - Preliminary NO GROWTH AFTER 48 HOURS Resulted 03/25/20 16:00 Urine,Clean Catch Urine Culture - Final Mixed Urogenital Contaminants Complete Laboratory Tests Test 03/28/20 05:59 White Blood Count 17.8 K/UL (4.8-10.8) H Red Blood Count 3.93 M/UL (4.20-5.40) L Hemoglobin 11.2 G/DL (12.0-16.0) L Hematocrit 33.1 % (37.0-47.0) L Mean Corpuscular Volume 84 FL (80-99) Mean Corpuscular Hemoglobin 28.4 PG (27.0-31.0) Mean Corpuscular Hemoglobin Concent 33.7 G/DL (32.0-36.0) Red Cell Distribution Width 12.2 % (11.6-14.8) Platelet Count 300 K/UL (150-450) Mean Platelet Volume 6.9 FL (6.5-10.1) Neutrophils (%) (Auto) % (45.0-75.0) Lymphocytes (%) (Auto) % (20.0-45.0) Monocytes (%) (Auto) % (1.0-10.0) Eosinophils (%) (Auto) % (0.0-3.0) Basophils (%) (Auto) % (0.0-2.0) Neutrophils % (Manual) Pending Lymphocytes % (Manual) Pending Platelet Estimate Pending Platelet Morphology Pending Sodium Level 136 MMOL/L (136-145) Potassium Level 3.6 MMOL/L (3.5-5.1) Chloride Level 101 MMOL/L (98-107) Carbon Dioxide Level 27 MMOL/L (21-32) Anion Gap 8 mmol/L (5-15) Blood Urea Nitrogen 8 mg/dL (7-18) Creatinine 0.8 MG/DL (0.55-1.30) Estimat Glomerular Filtration Rate > 60 mL/min (>60) Glucose Level 126 MG/DL (74-106) H Calcium Level 8.8 MG/DL (8.5-10.1) Current Medications Medications (Trade) Dose Ordered Sig/Magda Route PRN Reason Start Time Stop Time Status Last Admin Dose Admin Acetaminophen (Tylenol) 650 mg Q6H PRN ORAL Mild Pain/Fever 100.5 F 03/26/20 00:00 04/25/20 00:00 03/27/20 20:25 Acetaminophen/ Hydrocodone Bitart ([place] 5/325) 1 tab Q6H PRN ORAL For Pain 4-10 03/26/20 13:45 04/02/20 13:44 03/28/20 04:34 Bisacodyl (Dulcolax) 10 mg DAILYPRN PRN RECTAL Constipation 03/26/20 09:15 06/24/20 09:14 Dextrose/Sodium Chloride 1,000 ml @ 60 mls/hr [id number] IV 03/26/20 08:15 04/25/20 08:14 03/27/20 17:09 Docusate Sodium (Colace) 100 mg TWICE A DAY ORAL 03/26/20 10:00 04/25/20 09:59 03/27/20 17:08 Enoxaparin Sodium (Lovenox) 60 mg EVERY 12 HOURS SUBQ 03/26/20 09:00 06/24/20 08:59 03/27/20 20:11 Guaifenesin/ Dextromethorphan (Robitussin DM Syrup) 15 ml Q6H PRN ORAL For Cough 03/26/20 03:00 06/24/20 02:59 03/26/20 16:26 Ibuprofen (Motrin) 600 mg Q8H PRN ORAL For Pain 03/26/20 00:00 04/25/20 00:00 03/28/20 04:33 Magnesium Hydroxide (Mom) 30 ml DAILYPRN PRN ORAL Constipation 03/26/20 09:15 04/25/20 09:14 03/26/20 16:27 Midodrine (Pro-Amatine) 5 mg THREE TIMES A DAY ORAL 03/26/20 13:00 06/24/20 12:59 03/27/20 17:08 Piperacillin Sod/ Tazobactam Sod 3.375 gm/Sodium Chloride 110 ml @ 27.5 mls/hr Q8H IVPB 03/27/20 10:00 04/03/20 09:59 03/28/20 02:17 Lor Millan M.D. Mar 28, 2020 08:32
--- NOTE | 2020-03-28 09:10 | General Progress Note ---
Subjective Constitutional: Reports: weakness Allergies: Coded Allergies: No Known Allergies (Unverified , 04/08/19) All Systems: reviewed and negative except above Subjective o2nc calm in bed Objective Last 24 Hour Vital Signs Date Time Temp Pulse Resp B/P (MAP) Pulse Ox O2 Delivery O2 Flow Rate FiO2 03/28/20 04:00 97.8 112 20 129/74 (92) 97 03/28/20 04:00 98 03/28/20 00:00 89 03/28/20 00:00 98.6 90 18 144/80 (101) 98 03/27/20 21:00 Nasal Cannula 2.0 03/27/20 20:55 98.9 03/27/20 20:00 100.5 97 18 147/88 (107) 98 03/27/20 20:00 94 03/27/20 16:00 98 03/27/20 16:00 97.9 98 20 109/55 (73) 98 03/27/20 13:52 99.6 03/27/20 12:00 114 03/27/20 12:00 99.8 127 21 128/73 (91) 98 Intake and Output 03/27/20 03/28/20 19:00 07:00 Intake Total 490.0 ml 890 ml Balance 490.0 ml 890 ml Intake Oral 320 ml 890 ml IV Total 170.0 ml # Voids 2 3 Laboratory Tests 03/28/20 05:59: White Blood Count 17.8H, Red Blood Count 3.93L, Hemoglobin 11.2L, Hematocrit 33.1L, Mean Corpuscular Volume 84, Mean Corpuscular Hemoglobin 28.4, Mean Corpuscular Hemoglobin Concent 33.7, Red Cell Distribution Width 12.2, Platelet Count 300, Mean Platelet Volume 6.9, Neutrophils (%) (Auto) , Lymphocytes (%) (Auto) , Monocytes (%) (Auto) , Eosinophils (%) (Auto) , Basophils (%) (Auto) , Differential Total Cells Counted 100, Neutrophils % (Manual) 87H, Lymphocytes % (Manual) 7L, Monocytes % (Manual) 6, Eosinophils % (Manual) 0, Basophils % (Manual) 0, Band Neutrophils 0, Platelet Estimate Adequate, Platelet Morphology Normal, Red Blood Cell Morphology Normal, Sodium Level 136, Potassium Level 3.6, Chloride Level 101, Carbon Dioxide Level 27, Anion Gap 8, Blood Urea Nitrogen 8, Creatinine 0.8, Estimat Glomerular Filtration Rate > 60, Glucose Level 126H, Calcium Level 8.8 Height (Feet): 5 Height (Inches): 4.00 Weight (Pounds): 145 General Appearance: lethargic EENT: normal ENT inspection Neck: normal alignment Cardiovascular: normal peripheral pulses, normal rate, regular rhythm Respiratory/Chest: chest wall non-tender, lungs clear, normal breath sounds Abdomen: normal bowel sounds, non tender, soft Extremities: normal inspection Edema: no edema noted Arm (L), no edema noted Arm (R), no edema noted Leg (L), no edema noted Leg (R), no edema noted Pedal (L), no edema noted Pedal (R), no e sung noted Generalized Neurologic: motor weakness Skin: normal pigmentation, warm/dry Assessment/Plan Problem List: (1) Pneumonia ICD Codes: J18.9 - Pneumonia, unspecified organism SNOMED: 879262730 (2) Suspected 2019 novel coronavirus infection ICD Codes: Z20.822 - Contact with and (suspected) exposure to COVID-19 SNOMED: 729362285 (3) Elevated d-dimer ICD Codes: R79.89 - Other specified abnormal findings of blood chemistry SNOMED: 368517714 (4) Vertigo ICD Codes: R42 - Dizziness and giddiness SNOMED: 615560955 Status: stable, progressing Assessment/Plan: o2 pulm tx abx cbc bmp am Nadir Moore DO Mar 28, 2020 09:10
[2020-03-28] MEDS: Docusate 100mg cap ORAL SCH ×2 (09:19→17:30)
[2020-03-28] MEDS: Enoxaparin 60mg Inj SUBQ SCH ×2 (09:25→21:16)
[2020-03-28] MEDS: D5 1/2NS 1,000 ML IV SCH (09:28)
--- NOTE | 2020-03-28 09:32 | Cardiology Report ---
APPROVED REPORT EXAM: Two-dimensional and M-mode echocardiogram with Doppler and color Doppler. INDICATION Tachycardia M-Mode DIMENSIONS IVSd1.1 (0.7-1.1cm)Left Atrium (MM)3.1 (1.6-4.0cm) LVDd3.5 (3.5-5.6cm)Aortic Root2.9 (2.0-3.7cm) PWd1.0 (0.7-1.1cm)Aortic Cusp Exc.1.7 (1.5-2.0cm) IVSs1.2 cmEPSS0.9 (>1.0cm) LVDs2.3 (2.5-4.0cm) PWs1.4 cm <Conclusion> Normal left ventricular chamber size, systolic function and wall motion. Left ventricular ejection fraction estimated to be 55 %. No evidence of left ventricular hypertrophy. No evidence of pericardial effusion. All other cardiac chamber sizes are within normal limits. Focal aortic valve sclerosis with adequate cusp excursion. Thickened mitral valve leaflets with normal excursion. Mitral annulus and aortic root calcification. Pulmonic valve not well visualized. Normal tricuspid valve structure. IVC dilated at 2.1 cm and without physiologic collapse suggestive of increased RA pressure,RAP estimated 20 mmHg. A color flow and spectral Doppler study was performed and revealed: Mild mitral regurgitation. Mitral inflow indicates normal left ventricular diastolic function. Mild to moderate tricuspid regurgitation. Tricuspid systolic velocities suggests peak right ventricular systolic pressure of 57mmHg, consistent with moderate pulmonary hypertension.
--- NOTE | 2020-03-28 09:57 | NUR ---
NURSE NOTES: Received report from AARON Regan. Patient observed to be awake, alert, and oriented x4. Seen lying in bed currently on 2L/NC no s/sx of SOB/Distress, no c/o any pain or discomfort. Patient with IV site left wrist g22 inplace intact and patent currently running D5 1/2 NS @60. Bed placed on lowest and locked, call light placed within reach and will continue to monitor for any changes in patient's condition.
[2020-03-28 12:00] VITALS: BP 104/42
[2020-03-28] MEDS: guaiFENesin /DM 10ml syrup ORAL PRN ×2 (12:18→18:30)
--- NOTE | 2020-03-28 12:32 | Pulmonology Progress Note ---
Subjective ROS Limited/Unobtainable: No Interval Events: none major reported per nursing HEENT: Repors: no symptoms Respiratory: Reports: no symptoms Cardiovascular: Reports: no symptoms Gastrointestinal/Abdominal: Reports: no symptoms Musculoskeletal: Reports: pain, other - right mid back pain; better with ibuprofen and [place] Allergies: Coded Allergies: No Known Allergies (Unverified , 04/08/19) All Systems: reviewed and negative except above Objective Last 24 Hour Vital Signs Date Time Temp Pulse Resp B/P (MAP) Pulse Ox O2 Delivery O2 Flow Rate FiO2 03/28/20 09:00 Nasal Cannula 2.0 03/28/20 08:00 97.9 103 20 105/55 (72) 95 03/28/20 08:00 109 03/28/20 04:00 97.8 112 20 129/74 (92) 97 03/28/20 04:00 98 03/28/20 00:00 89 03/28/20 00:00 98.6 90 18 144/80 (101) 98 03/27/20 21:00 Nasal Cannula 2.0 03/27/20 20:55 98.9 03/27/20 20:00 100.5 97 18 147/88 (107) 98 03/27/20 20:00 94 03/27/20 16:00 98 03/27/20 16:00 97.9 98 20 109/55 (73) 98 03/27/20 13:52 99.6 Intake and Output 03/27/20 03/28/20 19:00 07:00 Intake Total 490.0 ml 890 ml Balance 490.0 ml 890 ml Intake Oral 320 ml 890 ml IV Total 170.0 ml # Voids 2 3 General Appearance: no acute distress HEENT: atraumatic Respiratory: crackles/rales Cardiovascular: regular rhythm, tachycardia Abdomen: soft, non tender Microbiology Date/Time Source Procedure Growth Status 03/25/20 20:30 Nasal Nares - Final Complete 03/25/20 20:30 Nasal Nares - Final Complete 03/25/20 20:30 Nasopharynx Coronavirus COVID-19 PCR ([facility]) - Final Complete 03/25/20 16:24 Blood Blood Culture - Preliminary NO GROWTH AFTER 48 HOURS Resulted 03/25/20 16:00 Urine,Clean Catch Urine Culture - Final Mixed Urogenital Contaminants Complete Laboratory Tests 03/28/20 05:59: White Blood Count 17.8H, Red Blood Count 3.93L, Hemoglobin 11.2L, Hematocrit 33.1L, Mean Corpuscular Volume 84, Mean Corpuscular Hemoglobin 28.4, Mean Corpuscular Hemoglobin Concent 33.7, Red Cell Distribution Width 12.2, Platelet Count 300, Mean Platelet Volume 6.9, Neutrophils (%) (Auto) , Lymphocytes (%) (Auto) , Monocytes (%) (Auto) , Eosinophils (%) (Auto) , Basophils (%) (Auto) , Differential Total Cells Counted 100, Neutrophils % (Manual) 87H, Lymphocytes % (Manual) 7L, Monocytes % (Manual) 6, Eosinophils % (Manual) 0, Basophils % (Manual) 0, Band Neutrophils 0, Platelet Estimate Adequate, Platelet Morphology Normal, Red Blood Cell Morphology Normal, Sodium Level 136, Potassium Level 3.6, Chloride Level 101, Carbon Dioxide Level 27, Anion Gap 8, Blood Urea Nitrogen 8, Creatinine 0.8, Estimat Glomerular Filtration Rate > 60, Glucose Level 126H, Calcium Level 8.8 Current Medications Medications (Trade) Dose Ordered Sig/Magda Route PRN Reason Start Time Stop Time Status Last Admin Dose Admin Acetaminophen (Tylenol) 650 mg Q6H PRN ORAL Mild Pain/Fever 100.5 F 03/26/20 00:00 04/25/20 00:00 03/27/20 20:25 Acetaminophen/ Hydrocodone Bitart ([place] 5/325) 1 tab Q6H PRN ORAL For Pain 4-10 03/26/20 13:45 04/02/20 13:44 03/28/20 04:34 Bisacodyl (Dulcolax) 10 mg DAILYPRN PRN RECTAL Constipation 03/26/20 09:15 06/24/20 09:14 Dextrose/Sodium Chloride 1,000 ml @ 60 mls/hr [id number] IV 03/26/20 08:15 04/25/20 08:14 03/28/20 09:28 Docusate Sodium (Colace) 100 mg TWICE A DAY ORAL 03/26/20 10:00 04/25/20 09:59 03/28/20 09:19 Enoxaparin Sodium (Lovenox) 60 mg EVERY 12 HOURS SUBQ 03/26/20 09:00 06/24/20 08:59 03/28/20 09:25 Guaifenesin/ Dextromethorphan (Robitussin DM Syrup) 15 ml Q6H PRN ORAL For Cough 03/26/20 03:00 06/24/20 02:59 03/28/20 12:18 Ibuprofen (Motrin) 600 mg Q8H PRN ORAL For Pain 03/26/20 00:00 04/25/20 00:00 03/28/20 04:33 Magnesium Hydroxide (Mom) 30 ml DAILYPRN PRN ORAL Constipation 03/26/20 09:15 04/25/20 09:14 03/26/20 16:27 Midodrine (Pro-Amatine) 5 mg THREE TIMES A DAY ORAL 03/26/20 13:00 06/24/20 12:59 03/28/20 12:18 Piperacillin Sod/ Tazobactam Sod 3.375 gm/Sodium Chloride 110 ml @ 27.5 mls/hr Q8H IVPB 03/27/20 10:00 04/03/20 09:59 03/28/20 09:26 Assessment/Plan Assessment/Plan 1. ?Pneumonia with fever and leukocytosis -On Abx empirically per ID 2. Normoxemia -No indication for steroids for possible Covid at this time given good saturation on room air/low flow oxygen - wean as tolerated 3. Pulmonary embolus, acute -Right posterior basal segmental PE extending into the subsegmental pulmonary arteries -Continue full dose Lovenox -Venous duplex US lower legs negative -Hypercoag work-up not needed due to age per heme onc 5. Elevated D-dimer -Duplex legs negative -On Lovenox 6. Thyroid nodules -Hematology oncology following 7. COVID-19 PCR negative (03/25) - now off isolation The care for this patient was discussed with my supervising physician. Time spent for this case was approximately 31 minutes. Denzel Villalta Mar 28, 2020 12:32
--- NOTE | 2020-03-28 15:04 | Cardiac Electrophysiology PN ---
Assessment/Plan Assessment/Plan 1. SOB due to Acute PE (Right posterior basal segmental PE extending into the subsegmental pulmonary arteries) on Lovenox. EF 55%. Being ruled out for Covid. Ruled out for [place] 2. Possible PNA with WBC 18K on Abx per Dr Alonzo 3. Low K replaced 4. Low BP. On Midodrine 5 tid. Better now DW RN Subjective Subjective No CP or SOB. On Lovenox for PE. Echo EF 55%. On RA. Being R/O for Covid Objective Last 24 Hour Vital Signs Date Time Temp Pulse Resp B/P (MAP) Pulse Ox O2 Delivery O2 Flow Rate FiO2 03/28/20 12:00 97.7 96 20 104/42 (62) 96 03/28/20 12:00 92 03/28/20 09:00 Nasal Cannula 2.0 03/28/20 08:00 97.9 103 20 105/55 (72) 95 03/28/20 08:00 109 03/28/20 04:00 97.8 112 20 129/74 (92) 97 03/28/20 04:00 98 03/28/20 00:00 89 03/28/20 00:00 98.6 90 18 144/80 (101) 98 03/27/20 21:00 Nasal Cannula 2.0 03/27/20 20:55 98.9 03/27/20 20:00 100.5 97 18 147/88 (107) 98 03/27/20 20:00 94 03/27/20 16:00 98 03/27/20 16:00 97.9 98 20 109/55 (73) 98 Intake and Output 03/27/20 03/28/20 19:00 07:00 Intake Total 490.0 ml 890 ml Balance 490.0 ml 890 ml Intake Oral 320 ml 890 ml IV Total 170.0 ml # Voids 2 3 Laboratory Tests Test 03/28/20 05:59 White Blood Count 17.8 K/UL (4.8-10.8) H Red Blood Count 3.93 M/UL (4.20-5.40) L Hemoglobin 11.2 G/DL (12.0-16.0) L Hematocrit 33.1 % (37.0-47.0) L Mean Corpuscular Volume 84 FL (80-99) Mean Corpuscular Hemoglobin 28.4 PG (27.0-31.0) Mean Corpuscular Hemoglobin Concent 33.7 G/DL (32.0-36.0) Red Cell Distribution Width 12.2 % (11.6-14.8) Platelet Count 300 K/UL (150-450) Mean Platelet Volume 6.9 FL (6.5-10.1) Neutrophils (%) (Auto) % (45.0-75.0) Lymphocytes (%) (Auto) % (20.0-45.0) Monocytes (%) (Auto) % (1.0-10.0) Eosinophils (%) (Auto) % (0.0-3.0) Basophils (%) (Auto) % (0.0-2.0) Differential Total Cells Counted 100 Neutrophils % (Manual) 87 % (45-75) H Lymphocytes % (Manual) 7 % (20-45) L Monocytes % (Manual) 6 % (1-10) Eosinophils % (Manual) 0 % (0-3) Basophils % (Manual) 0 % (0-2) Band Neutrophils 0 % (0-8) Platelet Estimate Adequate Platelet Morphology Normal Red Blood Cell Morphology Normal Sodium Level 136 MMOL/L (136-145) Potassium Level 3.6 MMOL/L (3.5-5.1) Chloride Level 101 MMOL/L (98-107) Carbon Dioxide Level 27 MMOL/L (21-32) Anion Gap 8 mmol/L (5-15) Blood Urea Nitrogen 8 mg/dL (7-18) Creatinine 0.8 MG/DL (0.55-1.30) Estimat Glomerular Filtration Rate > 60 mL/min (>60) Glucose Level 126 MG/DL (74-106) H Calcium Level 8.8 MG/DL (8.5-10.1) Microbiology Date/Time Source Procedure Growth Status 03/25/20 20:30 Nasal Nares - Final Complete 03/25/20 20:30 Nasal Nares - Final Complete 03/25/20 20:30 Nasopharynx Coronavirus COVID-19 PCR ([facility]) - Final Complete 03/25/20 16:24 Blood Blood Culture - Preliminary NO GROWTH AFTER 48 HOURS Resulted 03/25/20 16:00 Urine,Clean Catch Urine Culture - Final Mixed Urogenital Contaminants Complete Objective GENERAL: Sleeping in bed, O2 NC, slight short of breath. No JVD CARDIOVASCULAR: RRR, No murmur. LUNGS: Poor air exchange. ABDOMEN: Bowel sounds distant. EXTREMITIES: No cyanosis, clubbing, or edema. NEUROLOGIC: moves all extremities, slightly weak. David Meek MD Mar 28, 2020 15:04
[2020-03-28 16:00] VITALS: BP 136/68
--- NOTE | 2020-03-28 19:20 | NUR ---
NURSE NOTES: Received patient report from Aminata, RN. Patient is A/O x4 and verbally responsive. Pt has pain on the lower back which was medicated with pain medication and will continue to monitor the level. Patient on 2L NC, breathing is even and unlabored with no SOB or acute distress. Patient has IV site on RFA 22G which is running D51/2 NS @60mL/hr. Bed in lowest position, locked with side rails x2. Call light within reach. Will continue plan of care.
--- NOTE | 2020-03-28 19:29 | NUR ---
NURSE HAND-OFF REPORT: Important Events on Shift:Pain and coughing management Patient Status: stable Diet: reg Pending Orders: n/a Pending Results/Labs:n/a Pending MD notification:n/a Latest Vital Signs: Temperature 98.6 , Pulse 102 , B/P 136 /68 , Respiratory Rate 20 , O2 SAT 94 , Nasal Cannula, O2 Flow Rate 2.0 . Vital Sign Comment: stable EKG Rhythm: Sinus Tachycardia Rhythm change?: N MD Notified?: - MD Response: Latest Duran Fall Score: 30 Fall Risk: Medium Risk Safety Measures: Call light Within Reach, Bed Alarm Zone 1, Side Rails Side Rails x2, Bed position Low and Locked. Fall Precautions: Patient Fall Education Report given to AARON Regan.
[2020-03-28 20:00] VITALS: BP 122/59
[2020-03-29] VITALS: BP 108/54
[2020-03-29] MEDS: D5 1/2NS 1,000 ML IV SCH ×2 (02:38→20:43)
[2020-03-29] MEDS: Piperacillin/Tazobactam 3.375 GM in NS 110 ML IVPB SCH ×3 (02:38→17:05)
[2020-03-29] MEDS: HYDROcodone/Acetamin 5/325 tab ORAL PRN ×3 (02:56→17:04)
[2020-03-29] MEDS: guaiFENesin /DM 10ml syrup ORAL PRN ×3 (02:56→17:04)
[2020-03-29 04:00] VITALS: BP 116/65
[2020-03-29 06:14] LABS: BASOPHILS % (AUTO) 0.6 % (0.0-2.0); EOSINOPHILS % (AUTO) 0.8 % (0.0-3.0); HEMOGLOBIN 10.8 G/DL (12.0-16.0); LYMPHOCYTES % (AUTO) 11.2 % (20.0-45.0); MEAN CORPUSCULAR VOLUME 85 FL (80-99); MONOCYTES % (AUTO) 9.4 % (1.0-10.0); NEUTROPHILS % (AUTO) 78.1 % (45.0-75.0); PLATELET COUNT 304 K/UL (150-450); RED BLOOD COUNT 3.89 M/UL (4.20-5.40); RED CELL DISTRIBUTION WIDTH 12.3 % (11.6-14.8); WHITE BLOOD COUNT 15.9 K/UL (4.8-10.8)
--- NOTE | 2020-03-29 06:22 | Hematology/Onc Progress Note ---
Assessment/Plan Assessment/Plan Assessment and Recs # Right posterior basal segmental pulmonary embolism extending into the subsegmental pulmonary arteries. No evidence of right heart strain. Right lung base airspace opacities likely sequela of ischemia from pulmonary embolism. --> anticoagulation has been started lovenox bid --> r/o bleeding --> venous duplex lower legs--> NEG --> hypercoag w/u not needed due to age # Elevated ddimer r/o infection --> duplex legs as needed --> duplex is negative # Anemia of chronic disease --> hgb 10->10 --> no bleeding at this time --> ferritin is elev # Leukocytosis due to reactive process --> abx as needed --> smear is noted --> on abx --> r/o covid --> wbc 19 # Pneumonia -> abx as needed zosyn # Thyroid nodule -> r/o nodules -> us thyroid as needed # Dvt ppx lovenox bid Appreciate consultation and asif Rn Subjective Constitutional: Denies: no symptoms, chills, fever, malaise, weakness, other HEENT: Denies: no symptoms, eye pain, blurred vision, tearing, double vision, ear pain, ear discharge, nose pain, nose congestion, throat pain, throat swelling, mouth pain, mouth swelling, other Cardiovascular: Denies: no symptoms, chest pain, edema, irregular heart rate, lightheadedness, palpitations, syncope, other Respiratory: Denies: no symptoms, cough, shortness of breath, SOB with excertion, SOB at rest, sputum, wheezing, other Gastrointestinal/Abdominal: Denies: no symptoms, abdomen distended, abdominal pain, black stools, tarry stools, blood in stool, constipated, diarrhea, difficulty swallowing, nausea, poor appetite, poor fluid intake, rectal bleeding, vomiting, other Genitourinary: Denies: no symptoms, burning, discharge, frequency, flank pain, hematuria, incontinence, pain, urgency, other Endocrine: Denies: no symptoms, excessive sweating, flushing, intolerance to cold, intolerance to heat, increased hunger, increased thirst, increased urine, unexplained weight gain, unexplained weight loss, other Allergies: Coded Allergies: No Known Allergies (Unverified , 04/08/19) Subjective 03/27 on nc, with back pain, on ivf, labs are noted, downtrending hgb 03/28 zosyn noted, being rule out for covid, meds reviewed 03/29 labs reviewed, with 2lnc, comfortable, able to converse Objective Objective Current Medications Medications (Trade) Dose Ordered Sig/Magda Route PRN Reason Start Time Stop Time Status Last Admin Dose Admin Acetaminophen (Tylenol) 650 mg Q6H PRN ORAL Mild Pain/Fever 100.5 F 03/26/20 00:00 04/25/20 00:00 03/27/20 20:25 Acetaminophen/ Hydrocodone Bitart ([place] 5/325) 1 tab Q6H PRN ORAL For Pain 4-10 03/26/20 13:45 04/02/20 13:44 03/29/20 02:56 Bisacodyl (Dulcolax) 10 mg DAILYPRN PRN RECTAL Constipation 03/26/20 09:15 06/24/20 09:14 Dextrose/Sodium Chloride 1,000 ml @ 60 mls/hr [id number] IV 03/26/20 08:15 04/25/20 08:14 03/29/20 02:38 Docusate Sodium (Colace) 100 mg TWICE A DAY ORAL 03/26/20 10:00 04/25/20 09:59 03/28/20 17:30 Enoxaparin Sodium (Lovenox) 60 mg EVERY 12 HOURS SUBQ 03/26/20 09:00 06/24/20 08:59 03/28/20 21:16 Guaifenesin/ Dextromethorphan (Robitussin DM Syrup) 15 ml Q6H PRN ORAL For Cough 03/26/20 03:00 06/24/20 02:59 03/29/20 02:56 Ibuprofen (Motrin) 600 mg Q8H PRN ORAL For Pain 03/26/20 00:00 04/25/20 00:00 03/28/20 21:15 Magnesium Hydroxide (Mom) 30 ml DAILYPRN PRN ORAL Constipation 03/26/20 09:15 04/25/20 09:14 03/26/20 16:27 Midodrine (Pro-Amatine) 5 mg THREE TIMES A DAY ORAL 03/26/20 13:00 06/24/20 12:59 03/28/20 12:18 Piperacillin Sod/ Tazobactam Sod 3.375 gm/Sodium Chloride 110 ml @ 27.5 mls/hr Q8H IVPB 03/27/20 10:00 04/03/20 09:59 03/29/20 02:38 Last 24 Hour Vital Signs Date Time Temp Pulse Resp B/P (MAP) Pulse Ox O2 Delivery O2 Flow Rate FiO2 03/29/20 04:00 86 03/29/20 04:00 98.1 94 20 116/65 (82) 96 03/29/20 00:00 84 03/29/20 00:00 97.9 110 20 108/54 (72) 94 03/28/20 21:00 Nasal Cannula 2.0 03/28/20 20:00 98.4 110 20 122/59 (80) 93 03/28/20 20:00 113 03/28/20 16:00 102 03/28/20 16:00 98.6 109 20 136/68 (90) 94 03/28/20 12:00 97.7 96 20 104/42 (62) 96 03/28/20 12:00 92 03/28/20 09:00 Nasal Cannula 2.0 03/28/20 08:00 97.9 103 20 105/55 (72) 95 03/28/20 08:00 109 03/28/20 04:00 97.8 112 20 129/74 (92) 97 03/28/20 04:00 98 03/28/20 00:00 89 03/28/20 00:00 98.6 90 18 144/80 (101) 98 03/27/20 21:00 Nasal Cannula 2.0 03/27/20 20:55 98.9 03/27/20 20:00 100.5 97 18 147/88 (107) 98 03/27/20 20:00 94 03/27/20 16:00 98 03/27/20 16:00 97.9 98 20 109/55 (73) 98 03/27/20 13:52 99.6 03/27/20 12:00 114 03/27/20 12:00 99.8 127 21 128/73 (91) 98 03/27/20 09:00 Room Air 03/27/20 08:00 117 03/27/20 08:00 98.2 120 24 127/76 (93) 98 Intake and Output 03/28/20 03/29/20 19:00 07:00 Intake Total 900 ml 1020 ml Balance 900 ml 1020 ml Intake Oral 900 ml 1020 ml # Voids 2 2 Labs Test 03/26/20 07:47 03/26/20 11:00 03/26/20 18:55 03/27/20 02:50 White Blood Count 18.7 K/UL (4.8-10.8) 19.2 K/UL (4.8-10.8) Red Blood Count 4.34 M/UL (4.20-5.40) 3.73 M/UL (4.20-5.40) Hemoglobin 11.9 G/DL (12.0-16.0) 10.5 G/DL (12.0-16.0) Hematocrit 37.0 % (37.0-47.0) 31.3 % (37.0-47.0) Mean Corpuscular Volume 85 FL (80-99) 84 FL (80-99) Mean Corpuscular Hemoglobin 27.4 PG (27.0-31.0) 28.3 PG (27.0-31.0) Mean Corpuscular Hemoglobin Concent 32.2 G/DL (32.0-36.0) 33.6 G/DL (32.0-36.0) Red Cell Distribution Width 12.0 % (11.6-14.8) 14.1 % (11.6-14.8) Platelet Count 316 K/UL (150-450) 272 K/UL (150-450) Mean Platelet Volume 6.6 FL (6.5-10.1) 6.4 FL (6.5-10.1) Neutrophils (%) (Auto) % (45.0-75.0) % (45.0-75.0) Lymphocytes (%) (Auto) % (20.0-45.0) % (20.0-45.0) Monocytes (%) (Auto) % (1.0-10.0) % (1.0-10.0) Eosinophils (%) (Auto) % (0.0-3.0) % (0.0-3.0) Basophils (%) (Auto) % (0.0-2.0) % (0.0-2.0) Differential Total Cells Counted 100 100 Neutrophils % (Manual) 84 % (45-75) 87 % (45-75) Lymphocytes % (Manual) 5 % (20-45) 7 % (20-45) Monocytes % (Manual) 11 % (1-10) 6 % (1-10) Eosinophils % (Manual) 0 % (0-3) 0 % (0-3) Basophils % (Manual) 0 % (0-2) 0 % (0-2) Band Neutrophils 0 % (0-8) 0 % (0-8) Platelet Estimate Adequate Adequate Platelet Morphology Normal Normal Hypochromasia 1+ Sodium Level 142 MMOL/L (136-145) 136 MMOL/L (136-145) Potassium Level 3.4 MMOL/L (3.5-5.1) 4.0 MMOL/L (3.5-5.1) Chloride Level 106 MMOL/L (98-107) 103 MMOL/L (98-107) Carbon Dioxide Level 27 MMOL/L (21-32) 28 MMOL/L (21-32) Anion Gap 9 mmol/L (5-15) 5 mmol/L (5-15) Blood Urea Nitrogen 7 mg/dL (7-18) 8 mg/dL (7-18) Creatinine 0.8 MG/DL (0.55-1.30) 0.7 MG/DL (0.55-1.30) Estimat Glomerular Filtration Rate > 60 mL/min (>60) > 60 mL/min (>60) Glucose Level 167 MG/DL (74-106) 137 MG/DL (74-106) Calcium Level 8.9 MG/DL (8.5-10.1) 8.6 MG/DL (8.5-10.1) Troponin I 0.000 ng/mL (0.000-0.056) 0.000 ng/mL (0.000-0.056) 0.000 ng/mL (0.000-0.056) Anisocytosis 1+ Test 03/28/20 05:59 03/29/20 05:47 White Blood Count 17.8 K/UL (4.8-10.8) 15.9 K/UL (4.8-10.8) Red Blood Count 3.93 M/UL (4.20-5.40) 3.89 M/UL (4.20-5.40) Hemoglobin 11.2 G/DL (12.0-16.0) 10.8 G/DL (12.0-16.0) Hematocrit 33.1 % (37.0-47.0) 33.0 % (37.0-47.0) Mean Corpuscular Volume 84 FL (80-99) 85 FL (80-99) Mean Corpuscular Hemoglobin 28.4 PG (27.0-31.0) 27.7 PG (27.0-31.0) Mean Corpuscular Hemoglobin Concent 33.7 G/DL (32.0-36.0) 32.6 G/DL (32.0-36.0) Red Cell Distribution Width 12.2 % (11.6-14.8) 12.3 % (11.6-14.8) Platelet Count 300 K/UL (150-450) 304 K/UL (150-450) Mean Platelet Volume 6.9 FL (6.5-10.1) 7.0 FL (6.5-10.1) Neutrophils (%) (Auto) % (45.0-75.0) 78.1 % (45.0-75.0) Lymphocytes (%) (Auto) % (20.0-45.0) 11.2 % (20.0-45.0) Monocytes (%) (Auto) % (1.0-10.0) 9.4 % (1.0-10.0) Eosinophils (%) (Auto) % (0.0-3.0) 0.8 % (0.0-3.0) Basophils (%) (Auto) % (0.0-2.0) 0.6 % (0.0-2.0) Differential Total Cells Counted 100 Neutrophils % (Manual) 87 % (45-75) Lymphocytes % (Manual) 7 % (20-45) Monocytes % (Manual) 6 % (1-10) Eosinophils % (Manual) 0 % (0-3) Basophils % (Manual) 0 % (0-2) Band Neutrophils 0 % (0-8) Platelet Estimate Adequate Platelet Morphology Normal Red Blood Cell Morphology Normal Sodium Level 136 MMOL/L (136-145) Potassium Level 3.6 MMOL/L (3.5-5.1) Chloride Level 101 MMOL/L (98-107) Carbon Dioxide Level 27 MMOL/L (21-32) Anion Gap 8 mmol/L (5-15) Blood Urea Nitrogen 8 mg/dL (7-18) Creatinine 0.8 MG/DL (0.55-1.30) Estimat Glomerular Filtration Rate > 60 mL/min (>60) Glucose Level 126 MG/DL (74-106) Calcium Level 8.8 MG/DL (8.5-10.1) Height (Feet): 5 Height (Inches): 4.00 Weight (Pounds): 145 Objective Physical Exam General: Awake and alert, no acute distress, mild fever, anxious appearing HEENT: NC/AT. EOMI. dry mucous membranes. Cardiovascular: Tachycardic. S1 and S2 normal. No murmur appreciated Resp: Normal work of breathing. No cough or wheezing during exam. ++crackles bilaterally. Abdomen: Abdomen is soft, nondistended. Nontender Skin: Intact. No abrasions, laceration or rash over the exposed skin MSK: Normal tone and bulk. Moving all extremities. Neuro: Awake and alert. Mentating appropriately. Kenny Aldana MD Mar 29, 2020 06:22
[2020-03-29 06:28] LABS: ANION GAP 5 mmol/L (5-15); BLOOD UREA NITROGEN 6 mg/dL (7-18); CALCIUM 8.9 MG/DL (8.5-10.1); CARBON DIOXIDE 31 MMOL/L (21-32); CHLORIDE 106 MMOL/L (98-107); CREATININE 0.8 MG/DL (0.55-1.30); POTASSIUM 3.5 MMOL/L (3.5-5.1); SODIUM 142 MMOL/L (136-145)
--- NOTE | 2020-03-29 07:14 | NUR ---
NURSE HAND-OFF REPORT: Important Events on Shift: Controlling pain Patient Status: Diet: Pending Orders: Pending Results/Labs: Pending MD notification: Latest Vital Signs: Temperature 98.1 , Pulse 86 , B/P 116 /65 , Respiratory Rate 20 , O2 SAT 96 , Nasal Cannula, O2 Flow Rate 2.0 . Vital Sign Comment: EKG Rhythm: Sinus Rhythm Rhythm change?: N MD Notified?: - MD Response: Latest Duran Fall Score: 30 Fall Risk: Medium Risk Safety Measures: Call light Within Reach, Bed Alarm Zone 1, Side Rails Side Rails x2, Bed position Low and Locked. Fall Precautions: Patient Fall Education Report given to Mechelle.
--- NOTE | 2020-03-29 07:30 | NUR ---
NURSE NOTES: Received pt from AARON Regan, pt is awake and alert, pt has NC 2L/hr, pt has intact iv access RFA 22G is running well. Pt is on continues heart monitoring. all needs attended, bed is locked and is in the lowest position, call light within easy reach. will continue to monitor.
[2020-03-29 08:00] VITALS: BP 103/54
--- NOTE | 2020-03-29 08:02 | Infectious Diseases Prog Note ---
Assessment/Plan 69yo F with: Febrile to 100.8 Back pain Pulmonary embolus, acute R/o COVID Satting well on 2L NC Leukocytosis to 16 Lymphopenia / COVID PCR neg BCx NTD UA neg, UCx mixed jono CTA chest: 1. Right posterior basal segmental pulmonary embolism extending into the subsegmental pulmonary arteries. No evidence of right heart strain. 2. Right lung base airspace opacities likely sequela of ischemia from pulmonary embolism. 3. Left lung base atelectasis. Underlying concomitant infectious process is not definitively excluded. 4. Bilateral thyroid nodules. Flu neg Cr 0.9 Plan: Cont Zosyn #3 empiric given ongoing fevers, leukocytosis (though could also all be 2/2 PE) On discharge can transition to levofloxacin 500mg PO daily to complete 7-10 day course for possible pneumonia Anticoagulation for PE per primary Trend WBC - improving 03/27 SP CTX #2 empiric Monitor CBC/CMP Monitor temp curve, hemodynamics Monitor resp status D/w RN Thank you for this consult. [facility] will continue to follow. Subjective Allergies: Coded Allergies: No Known Allergies (Unverified , 04/08/19) AF NAD on 2L NC WBC improving to 15 Feels her breathing and pain is improving, just bad at night Objective Last 24 Hour Vital Signs Date Time Temp Pulse Resp B/P (MAP) Pulse Ox O2 Delivery O2 Flow Rate FiO2 03/29/20 04:00 86 03/29/20 04:00 98.1 94 20 116/65 (82) 96 03/29/20 00:00 84 03/29/20 00:00 97.9 110 20 108/54 (72) 94 03/28/20 21:00 Nasal Cannula 2.0 03/28/20 20:00 98.4 110 20 122/59 (80) 93 03/28/20 20:00 113 03/28/20 16:00 102 03/28/20 16:00 98.6 109 20 136/68 (90) 94 03/28/20 12:00 97.7 96 20 104/42 (62) 96 03/28/20 12:00 92 03/28/20 09:00 Nasal Cannula 2.0 Height (Feet): 5 Height (Inches): 4.00 Weight (Pounds): 145 Gen: NAD HEENT: NCAT Pulm: BL chest rise on NC, non-labored Abd: Non-distended Ext: No c/c/e Skin: No visible rashes Neuro: Awake, alert, interactive Laboratory Tests Test 03/29/20 05:47 White Blood Count 15.9 K/UL (4.8-10.8) H Red Blood Count 3.89 M/UL (4.20-5.40) L Hemoglobin 10.8 G/DL (12.0-16.0) L Hematocrit 33.0 % (37.0-47.0) L Mean Corpuscular Volume 85 FL (80-99) Mean Corpuscular Hemoglobin 27.7 PG (27.0-31.0) Mean Corpuscular Hemoglobin Concent 32.6 G/DL (32.0-36.0) Red Cell Distribution Width 12.3 % (11.6-14.8) Platelet Count 304 K/UL (150-450) Mean Platelet Volume 7.0 FL (6.5-10.1) Neutrophils (%) (Auto) 78.1 % (45.0-75.0) H Lymphocytes (%) (Auto) 11.2 % (20.0-45.0) L Monocytes (%) (Auto) 9.4 % (1.0-10.0) Eosinophils (%) (Auto) 0.8 % (0.0-3.0) Basophils (%) (Auto) 0.6 % (0.0-2.0) Sodium Level 142 MMOL/L (136-145) Potassium Level 3.5 MMOL/L (3.5-5.1) Chloride Level 106 MMOL/L (98-107) Carbon Dioxide Level 31 MMOL/L (21-32) Anion Gap 5 mmol/L (5-15) Blood Urea Nitrogen 6 mg/dL (7-18) L Creatinine 0.8 MG/DL (0.55-1.30) Estimat Glomerular Filtration Rate > 60 mL/min (>60) Glucose Level 111 MG/DL (74-106) H Calcium Level 8.9 MG/DL (8.5-10.1) Current Medications Medications (Trade) Dose Ordered Sig/Magda Route PRN Reason Start Time Stop Time Status Last Admin Dose Admin Acetaminophen (Tylenol) 650 mg Q6H PRN ORAL Mild Pain/Fever 100.5 F 03/26/20 00:00 04/25/20 00:00 03/27/20 20:25 Acetaminophen/ Hydrocodone Bitart ([place] 5/325) 1 tab Q6H PRN ORAL For Pain 4-10 03/26/20 13:45 04/02/20 13:44 03/29/20 02:56 Bisacodyl (Dulcolax) 10 mg DAILYPRN PRN RECTAL Constipation 03/26/20 09:15 06/24/20 09:14 Dextrose/Sodium Chloride 1,000 ml @ 60 mls/hr [id number] IV 03/26/20 08:15 04/25/20 08:14 03/29/20 02:38 Docusate Sodium (Colace) 100 mg TWICE A DAY ORAL 03/26/20 10:00 04/25/20 09:59 03/28/20 17:30 Enoxaparin Sodium (Lovenox) 60 mg EVERY 12 HOURS SUBQ 03/26/20 09:00 06/24/20 08:59 03/28/20 21:16 Guaifenesin/ Dextromethorphan (Robitussin DM Syrup) 15 ml Q6H PRN ORAL For Cough 03/26/20 03:00 06/24/20 02:59 03/29/20 02:56 Ibuprofen (Motrin) 600 mg Q8H PRN ORAL For Pain 03/26/20 00:00 04/25/20 00:00 03/28/20 21:15 Magnesium Hydroxide (Mom) 30 ml DAILYPRN PRN ORAL Constipation 03/26/20 09:15 04/25/20 09:14 03/26/20 16:27 Midodrine (Pro-Amatine) 5 mg THREE TIMES A DAY ORAL 03/26/20 13:00 06/24/20 12:59 03/28/20 12:18 Piperacillin Sod/ Tazobactam Sod 3.375 gm/Sodium Chloride 110 ml @ 27.5 mls/hr Q8H IVPB 03/27/20 10:00 04/03/20 09:59 03/29/20 02:38 Lor Millan M.D. Mar 29, 2020 08:02
[2020-03-29] MEDS: Docusate 100mg cap ORAL SCH ×2 (09:08→17:05)
[2020-03-29] MEDS: Enoxaparin 60mg Inj SUBQ SCH ×2 (09:09→20:44)
--- NOTE | 2020-03-29 09:39 | NUR ---
CASE MANAGEMENT:REVIEW 03/29/20 SI: PNA. PULMONARY EMBOLI. COVID NEGATIVE 97.7 100 20 103/54 98% ON 2L/NC WBC+15.9 IS: IV ZOSYN Q8HRS IVF@60/HR MIDODRINE PO TID LOVENOX SQ Q12 NORCO : TELEMETRY STATUS DCP; FROM HOME PLAN: WILL NEED TO WEAN TO ROOM AIR PRIOR TO DISCHARGE
[2020-03-29 12:00] VITALS: BP 107/53
--- NOTE | 2020-03-29 12:03 | Pulmonology Progress Note ---
Subjective ROS Limited/Unobtainable: No Interval Events: none major reported per nursing HEENT: Repors: no symptoms Respiratory: Reports: no symptoms Cardiovascular: Reports: no symptoms Gastrointestinal/Abdominal: Reports: no symptoms Musculoskeletal: Reports: pain, other - right mid back pain; better with ibuprofen and [place] Allergies: Coded Allergies: No Known Allergies (Unverified , 04/08/19) All Systems: reviewed and negative except above Objective Last 24 Hour Vital Signs Date Time Temp Pulse Resp B/P (MAP) Pulse Ox O2 Delivery O2 Flow Rate FiO2 03/29/20 09:00 Nasal Cannula 2.0 03/29/20 08:00 97.7 100 20 103/54 (70) 98 03/29/20 07:41 88 03/29/20 04:00 86 03/29/20 04:00 98.1 94 20 116/65 (82) 96 03/29/20 00:00 84 03/29/20 00:00 97.9 110 20 108/54 (72) 94 03/28/20 21:00 Nasal Cannula 2.0 03/28/20 20:00 98.4 110 20 122/59 (80) 93 03/28/20 20:00 113 03/28/20 16:00 102 03/28/20 16:00 98.6 109 20 136/68 (90) 94 Intake and Output 03/28/20 03/29/20 19:00 07:00 Intake Total 900 ml 1020 ml Balance 900 ml 1020 ml Intake Oral 900 ml 1020 ml # Voids 2 2 General Appearance: no acute distress HEENT: atraumatic Respiratory: crackles/rales Cardiovascular: regular rhythm, tachycardia Abdomen: soft, non tender Laboratory Tests 03/29/20 05:47: White Blood Count 15.9H, Red Blood Count 3.89L, Hemoglobin 10.8L, Hematocrit 33.0L, Mean Corpuscular Volume 85, Mean Corpuscular Hemoglobin 27.7, Mean Corpuscular Hemoglobin Concent 32.6, Red Cell Distribution Width 12.3, Platelet Count 304, Mean Platelet Volume 7.0, Neutrophils (%) (Auto) 78.1H, Lymphocytes (%) (Auto) 11.2L, Monocytes (%) (Auto) 9.4, Eosinophils (%) (Auto) 0.8, B asophils (%) (Auto) 0.6, Sodium Level 142, Potassium Level 3.5, Chloride Level 106, Carbon Dioxide Level 31, Anion Gap 5, Blood Urea Nitrogen 6L, Creatinine 0.8, Estimat Glomerular Filtration Rate > 60, Glucose Level 111H, Calcium Level 8.9 Current Medications Medications (Trade) Dose Ordered Sig/Magda Route PRN Reason Start Time Stop Time Status Last Admin Dose Admin Acetaminophen (Tylenol) 650 mg Q6H PRN ORAL Mild Pain/Fever 100.5 F 03/26/20 00:00 04/25/20 00:00 03/27/20 20:25 Acetaminophen/ Hydrocodone Bitart ([place] 5/325) 1 tab Q6H PRN ORAL For Pain 4-10 03/26/20 13:45 04/02/20 13:44 03/29/20 09:09 Bisacodyl (Dulcolax) 10 mg DAILYPRN PRN RECTAL Constipation 03/26/20 09:15 06/24/20 09:14 Dextrose/Sodium Chloride 1,000 ml @ 60 mls/hr [id number] IV 03/26/20 08:15 04/25/20 08:14 03/29/20 02:38 Docusate Sodium (Colace) 100 mg TWICE A DAY ORAL 03/26/20 10:00 04/25/20 09:59 03/29/20 09:08 Enoxaparin Sodium (Lovenox) 60 mg EVERY 12 HOURS SUBQ 03/26/20 09:00 06/24/20 08:59 03/29/20 09:09 Guaifenesin/ Dextromethorphan (Robitussin DM Syrup) 15 ml Q6H PRN ORAL For Cough 03/26/20 03:00 06/24/20 02:59 03/29/20 09:09 Ibuprofen (Motrin) 600 mg Q8H PRN ORAL For Pain 03/26/20 00:00 04/25/20 00:00 03/28/20 21:15 Magnesium Hydroxide (Mom) 30 ml DAILYPRN PRN ORAL Constipation 03/26/20 09:15 04/25/20 09:14 03/26/20 16:27 Midodrine (Pro-Amatine) 5 mg THREE TIMES A DAY ORAL 03/26/20 13:00 06/24/20 12:59 03/29/20 09:08 Piperacillin Sod/ Tazobactam Sod 3.375 gm/Sodium Chloride 110 ml @ 27.5 mls/hr Q8H IVPB 03/27/20 10:00 04/03/20 09:59 03/29/20 09:10 Assessment/Plan Assessment/Plan 1. ?Pneumonia with fever and leukocytosis -On Abx empirically per ID 2. Normoxemia -No indication for steroids for possible Covid at this time given good saturation on room air/low flow oxygen - Currently on 2L NC saturating at 95% - wean as tolerated 3. Pulmonary embolus, acute -Right posterior basal segmental PE extending into the subsegmental pulmonary arteries -Continue full dose Lovenox -Venous duplex US lower legs negative -Hypercoag work-up not needed due to age per heme onc 5. Elevated D-dimer -Duplex legs negative -On Lovenox 6. Thyroid nodules -Hematology oncology following 7. COVID-19 PCR negative (03/25) - now off isolation The care for this patient was discussed with my supervising physician. Time spent for this case was approximately 31 minutes. Denzel Villalta Mar 29, 2020 12:03
--- NOTE | 2020-03-29 13:01 | General Progress Note ---
Subjective Constitutional: Reports: weakness Respiratory: Reports: shortness of breath Allergies: Coded Allergies: No Known Allergies (Unverified , 04/08/19) All Systems: reviewed and negative except above Subjective o2nc calm in bed Objective Last 24 Hour Vital Signs Date Time Temp Pulse Resp B/P (MAP) Pulse Ox O2 Delivery O2 Flow Rate FiO2 03/29/20 12:32 103 03/29/20 12:00 96.8 100 20 107/53 (71) 97 03/29/20 09:00 Nasal Cannula 2.0 03/29/20 08:00 97.7 100 20 103/54 (70) 98 03/29/20 07:41 88 03/29/20 04:00 86 03/29/20 04:00 98.1 94 20 116/65 (82) 96 03/29/20 00:00 84 03/29/20 00:00 97.9 110 20 108/54 (72) 94 03/28/20 21:00 Nasal Cannula 2.0 03/28/20 20:00 98.4 110 20 122/59 (80) 93 03/28/20 20:00 113 03/28/20 16:00 102 03/28/20 16:00 98.6 109 20 136/68 (90) 94 Intake and Output 03/28/20 03/29/20 19:00 07:00 Intake Total 900 ml 1020 ml Balance 900 ml 1020 ml Intake Oral 900 ml 1020 ml # Voids 2 2 Laboratory Tests 03/29/20 05:47: White Blood Count 15.9H, Red Blood Count 3.89L, Hemoglobin 10.8L, Hematocrit 33.0L, Mean Corpuscular Volume 85, Mean Corpuscular Hemoglobin 27.7, Mean Corpuscular Hemoglobin Concent 32.6, Red Cell Distribution Width 12.3, Platelet Count 304, Mean Platelet Volume 7.0, Neutrophils (%) (Auto) 78.1H, Lymphocytes (%) (Auto) 11.2L, Monocytes (%) (Auto) 9.4, Eosinophils (%) (Auto) 0.8, Basophils (%) (Auto) 0.6, Sodium Level 142, Potassium Level 3.5, Chloride Level 106, Carbon Dioxide Level 31, Anion Gap 5, Blood Urea Nitrogen 6L, Creatinine 0.8, Estimat Glomerular Filtration Rate > 60, Glucose Level 111H, Calcium Level 8.9 Height (Feet): 5 Height (Inches): 4.00 Weight (Pounds): 145 General Appearance: lethargic EENT: normal ENT inspection Neck: normal alignment Cardiovascular: normal peripheral pulses, normal rate, regular rhythm Respiratory/Chest: chest wall non-tender, lungs clear, normal breath sounds Abdomen: normal bowel sounds, non tender, soft Extremities: normal inspection Edema: no edema noted Arm (L), no edema noted Arm (R), no edema noted Leg (L), no edema noted Leg (R), no edema noted Pedal (L), no edema noted Pedal (R), no edema noted Generalized Neurologic: responsive, motor weakness Skin: normal pigmentation, warm/dry Assessment/Plan Problem List: (1) Pneumonia ICD Codes: J18.9 - Pneumonia, unspecified organism SNOMED: 720324354 (2) Suspected 2019 novel coronavirus infection ICD Codes: Z20.822 - Contact with and (suspected) exposure to COVID-19 SNOMED: 088561253 (3) Elevated d-dimer ICD Codes: R79.89 - Other specified abnormal findings of blood chemistry SNOMED: 211086779 (4) Vertigo ICD Codes: R42 - Dizziness and giddiness SNOMED: 430390593 Status: stable, progressing Assessment/Plan: o2 pulm tx abx cbc bmp am Nadir Moore DO Mar 29, 2020 13:01
--- NOTE | 2020-03-29 14:41 | Cardiac Electrophysiology PN ---
Assessment/Plan Assessment/Plan 1. SOB due to Acute PE (Right posterior basal segmental PE extending into the subsegmental pulmonary arteries) on Lovenox. EF 55%. Being ruled out for Covid. Ruled out for IA 2. Possible PNA with WBC 18K on Abx per Dr Alonzo 3. Low K replaced 4. Low BP. On Midodrine 5 tid. Better now DW RN Subjective Subjective No CP or SOB. On Lovenox for PE. Echo EF 55%. On RA. Off isolation as Covid is negative Objective Last 24 Hour Vital Signs Date Time Temp Pulse Resp B/P (MAP) Pulse Ox O2 Delivery O2 Flow Rate FiO2 03/29/20 12:32 103 03/29/20 12:00 96.8 100 20 107/53 (71) 97 03/29/20 09:00 Nasal Cannula 2.0 03/29/20 08:00 97.7 100 20 103/54 (70) 98 03/29/20 07:41 88 03/29/20 04:00 86 03/29/20 04:00 98.1 94 20 116/65 (82) 96 03/29/20 00:00 84 03/29/20 00:00 97.9 110 20 108/54 (72) 94 03/28/20 21:00 Nasal Cannula 2.0 03/28/20 20:00 98.4 110 20 122/59 (80) 93 03/28/20 20:00 113 03/28/20 16:00 102 03/28/20 16:00 98.6 109 20 136/68 (90) 94 Intake and Output 03/28/20 03/29/20 19:00 07:00 Intake Total 900 ml 1020 ml Balance 900 ml 1020 ml Intake Oral 900 ml 1020 ml # Voids 2 2 Laboratory Tests Test 03/29/20 05:47 White Blood Count 15.9 K/UL (4.8-10.8) H Red Blood Count 3.89 M/UL (4.20-5.40) L Hemoglobin 10.8 G/DL (12.0-16.0) L Hematocrit 33.0 % (37.0-47.0) L Mean Corpuscular Volume 85 FL (80-99) Mean Corpuscular Hemoglobin 27.7 PG (27.0-31.0) Mean Corpuscular Hemoglobin Concent 32.6 G/DL (32.0-36.0) Red Cell Distribution Width 12.3 % (11.6-14.8) Platelet Count 304 K/UL (150-450) Mean Platelet Volume 7.0 FL (6.5-10.1) Neutrophils (%) (Auto) 78.1 % (45.0-75.0) H Lymphocytes (%) (Auto) 11.2 % (20.0-45.0) L Monocytes (%) (Auto) 9.4 % (1.0-10.0) Eosinophils (%) (Auto) 0.8 % (0.0-3.0) Basophils (%) (Auto) 0.6 % (0.0-2.0) Sodium Level 142 MMOL/L (136-145) Potassium Level 3.5 MMOL/L (3.5-5.1) Chloride Level 106 MMOL/L (98-107) Carbon Dioxide Level 31 MMOL/L (21-32) Anion Gap 5 mmol/L (5-15) Blood Urea Nitrogen 6 mg/dL (7-18) L Creatinine 0.8 MG/DL (0.55-1.30) Estimat Glomerular Filtration Rate > 60 mL/min (>60) Glucose Level 111 MG/DL (74-106) H Calcium Level 8.9 MG/DL (8.5-10.1) Objective HEENT: No JVD CARDIOVASCULAR: RRR, No murmur. LUNGS: Poor air exchange. ABDOMEN: Bowel sounds distant. EXTREMITIES: No cyanosis, clubbing, or edema. NEUROLOGIC: moves all extremities, slightly weak. David Meek MD Mar 29, 2020 14:41
[2020-03-29 15:59] VITALS: BP 105/52
--- NOTE | 2020-03-29 19:30 | NUR ---
NURSE NOTES: received report from ros herrmann. Patient on bed, awake and verbally responsive. on nc at 2lpm sating 96-98%. no sob. denies any pain or discomfort at the moment. noted with coughing episodes. negative covid 19. iv access on the right forearm, running ivf as ordered. sinus rhythm to sinus tachycardia in am shift. property assessment monitor in placed. reiterated to call and ask for assistance to prevent fall or injury. call light and light button within easy reach. bed locked and in lowest position. will continue plan of care.
--- NOTE | 2020-03-29 19:31 | NUR ---
NURSE HAND-OFF REPORT: Important Events on Shift:PT IS COUGHING AND COMPLAINING PAIN. Patient Status: Diet: Pending Orders: Pending Results/Labs: Pending MD notification: Latest Vital Signs: Temperature 97.2 , Pulse 103 , B/P 105 /52 , Respiratory Rate 18 , O2 SAT 96 , Nasal Cannula, O2 Flow Rate 2.0 . Vital Sign Comment: EKG Rhythm: Sinus Tachycardia Rhythm change?: N MD Notified?: - MD Response: Latest [place] Fall Score: 30 Fall Risk: Medium Risk Safety Measures: Call light Within Reach, Bed Alarm Zone 1, Side Rails Side Rails x2, Bed position Low and Locked. Fall Precautions: Patient Fall Education Report given to . Pt is awake and stable, no stress noted, no complain of pain at this moment. endorsed plan of care, endorsed to monitor cough and pain.
[2020-03-29 20:00] VITALS: BP 123/59
[2020-03-30] VITALS: BP 104/62
--- NOTE | 2020-03-30 | NUR ---
NURSE NOTES: temp of 100.5F. tylenol given as ordered. no pain or discomfort at the moment. no sob. will- re-assess per protocol.
--- NOTE | 2020-03-30 00:15 | NUR ---
NURSE NOTES: patient complaints of coughing episodes. cough syrup given GT as ordered/
[2020-03-30] MEDS: guaiFENesin /DM 10ml syrup ORAL PRN ×3 (00:30→21:16)
[2020-03-30] MEDS: Piperacillin/Tazobactam 3.375 GM in NS 110 ML IVPB SCH ×3 (00:59→18:22)
[2020-03-30 04:00] VITALS: BP 114/54
--- NOTE | 2020-03-30 06:11 | NUR ---
NURSE HAND-OFF REPORT: Important Events on Shift: fever of 100.5; tylenol given; cough syrup administered with c/o coughing episodes. Patient Status: stable Diet: regular Pending Orders: NONE Pending Results/Labs: Pending MD notification: Latest Vital Signs: Temperature 98.3 , Pulse 97 , B/P 114 /54 , Respiratory Rate 19 , O2 SAT 100 , Nasal Cannula, O2 Flow Rate 2.0 . Vital Sign Comment: EKG Rhythm: Sinus Rhythm to SR WITH PVC, PAC Rhythm change?: N MD Notified?: - MD Response: Latest [place] Fall Score: 30 Fall Risk: Medium Risk Safety Measures: Call light Within Reach, Bed Alarm Zone 1, Side Rails Side Rails x2, Bed position Low and Locked. Fall Precautions: Patient Fall Education Addendum: 03/30/20 at 0723 by Lady Panda RN REPORT GIVEN TO MICHAEL TURNER
--- NOTE | 2020-03-30 06:15 | General Progress Note ---
Subjective Constitutional: Denies: no symptoms, chills, diaphoresis, fever, malaise, weakness, other HEENT: Denies: no symptoms, eye pain, blurred vision, tearing, double vision, ear pain, ear discharge, nose pain, nose congestion, throat pain, throat swelling, mouth pain, mouth swelling, other Cardiovascular: Denies: no symptoms, chest pain, edema, irregular heart rate, lightheadedness, palpitations, syncope, other Gastrointestinal/Abdominal: Denies: no symptoms, abdomen distended, abdominal pain, black stools, tarry stools, blood in stool, constipated, diarrhea, difficulty swallowing, nausea, poor appetite, poor fluid intake, rectal bleeding, vomiting, other Neurologic/Psychiatric: Denies: no symptoms, anxiety, depressed, emotional problems, headache, numbness, paresthesia, pre-existing deficit, seizure, tingling, tremors, weakness, other Endocrine: Denies: no symptoms, excessive sweating, flushing, intolerance to cold, intolerance to heat, increased hunger, increased thirst, increased urine, unexplained weight gain, unexplained weight loss, other Allergies: Coded Allergies: No Known Allergies (Unverified , 04/08/19) Subjective 03/27 on nc, with back pain, on ivf, labs are noted, downtrending hgb 03/28 zosyn noted, being rule out for covid, meds reviewed 03/29 labs reviewed, with 2lnc, comfortable, able to converse 03/30 meds noted, no bleeding, dw rn, coughing still, abx Objective Last 24 Hour Vital Signs Date Time Temp Pulse Resp B/P (MAP) Pulse Ox O2 Delivery O2 Flow Rate FiO2 03/30/20 04:00 89 03/30/20 04:00 98.3 97 19 114/54 (74) 100 03/30/20 00:56 99.9 03/30/20 00:00 100 03/30/20 00:00 100.5 110 20 104/62 (76) 99 03/29/20 21:00 Nasal Cannula 2.0 03/29/20 20:00 106 03/29/20 20:00 100.2 106 20 123/59 (80) 97 03/29/20 16:33 103 03/29/20 15:59 97.2 111 18 105/52 (69) 96 03/29/20 15:56 114 03/29/20 12:32 103 03/29/20 12:00 96.8 100 20 107/53 (71) 97 03/29/20 09:00 Nasal Cannula 2.0 03/29/20 08:00 97.7 100 20 103/54 (70) 98 03/29/20 07:41 88 Intake and Output 03/29/20 03/30/20 19:00 07:00 Intake Total 1157.5 ml 692.5 ml Balance 1157.5 ml 692.5 ml Intake Oral 360 ml 250 ml IV Total 797.5 ml 442.5 ml # Voids 3 2 Height (Feet): 5 Height (Inches): 4.00 Weight (Pounds): 145 Objective Physical Exam General: Awake and alert, no acute distress, mild fever, anxious appearing HEENT: NC/AT. EOMI. dry mucous membranes. Cardiovascular: Tachycardic. S1 and S2 normal. No murmur appreciated Resp: Normal work of breathing. No cough or wheezing during exam. ++crackles bilaterally. Abdomen: Abdomen is soft, nondistended. Nontender Skin: Intact. No abrasions, laceration or rash over the exposed skin MSK: Normal tone and bulk. Moving all extremities. Neuro: Awake and alert. Mentating appropriately. Assessment/Plan Status: stable, progressing Assessment/Plan: IM COVERING Assessment and Recs # Right posterior basal segmental pulmonary embolism extending into the subsegmental pulmonary arteries. No evidence of right heart strain. Right lung base airspace opacities likely sequela of ischemia from pulmonary embolism. --> anticoagulation has been started lovenox bid --> r/o bleeding --> venous duplex lower legs--> NEG --> hypercoag w/u not needed due to age # Elevated ddimer r/o infection --> duplex legs as needed --> duplex is negative # Anemia of chronic disease --> hgb 10->10 --> no bleeding at this time --> ferritin is elev # Leukocytosis due to reactive process --> abx as needed zosyn --> smear is noted --> on abx --> r/o covid --> wbc 19-->16 # Pneumonia -> abx as needed zosyn # Thyroid nodule -> r/o nodules -> us thyroid as needed # Dvt ppx lovenox bid Appreciate consultation and dw Rn Kenny Aldana MD Mar 30, 2020 06:15
--- NOTE | 2020-03-30 07:40 | Infectious Diseases Prog Note ---
Assessment/Plan 69yo F with: Febrile to 100.8 Back pain Pulmonary embolus, acute R/o COVID Satting well on 2L NC Leukocytosis to 16 Lymphopenia 2/ COVID PCR neg BCx NTD UA neg, UCx mixed jono CTA chest: 1. Right posterior basal segmental pulmonary embolism extending into the subsegmental pulmonary arteries. No evidence of right heart strain. 2. Right lung base airspace opacities likely sequela of ischemia from pulmonary embolism. 3. Left lung base atelectasis. Underlying concomitant infectious process is not definitively excluded. 4. Bilateral thyroid nodules. Flu neg Cr 0.9 Plan: Cont Zosyn #4 empiric given ongoing fevers, leukocytosis (though could also all be 2/2 PE) On discharge can transition to levofloxacin 500mg PO daily to complete 7 day course for possible pneumonia Anticoagulation for PE per primary Trend WBC - improving 03/27 SP CTX #2 empiric Monitor CBC/CMP Monitor temp curve, hemodynamics Monitor resp status D/w RN Thank you for this consult. [facility] will continue to follow. Subjective Allergies: Coded Allergies: No Known Allergies (Unverified , 04/08/19) Tmax 100.5 NAD on 2L NC Reports breathing and chest pain have improved a bit Objective Last 24 Hour Vital Signs Date Time Temp Pulse Resp B/P (MAP) Pulse Ox O2 Delivery O2 Flow Rate FiO2 03/30/20 04:00 89 03/30/20 04:00 98.3 97 19 114/54 (74) 100 03/30/20 00:56 99.9 03/30/20 00:00 100 03/30/20 00:00 100.5 110 20 104/62 (76) 99 03/29/20 21:00 Nasal Cannula 2.0 03/29/20 20:00 106 03/29/20 20:00 100.2 106 20 123/59 (80) 97 03/29/20 16:33 103 03/29/20 15:59 97.2 111 18 105/52 (69) 96 03/29/20 15:56 114 03/29/20 12:32 103 03/29/20 12:00 96.8 100 20 107/53 (71) 97 03/29/20 09:00 Nasal Cannula 2.0 03/29/20 08:00 97.7 100 20 103/54 (70) 98 03/29/20 07:41 88 Height (Feet): 5 Height (Inches): 4.00 Weight (Pounds): 145 Gen: NAD HEENT: NCAT Pulm: BL chest rise on NC, non-labored Abd: Non-distended Ext: No c/c/e Skin: No visible rashes Neuro: Awake, alert, interactive Current Medications Medications (Trade) Dose Ordered Sig/Magda Route PRN Reason Start Time Stop Time Status Last Admin Dose Admin Acetaminophen (Tylenol) 650 mg Q6H PRN ORAL Mild Pain/Fever 100.5 F 03/26/20 00:00 04/25/20 00:00 03/30/20 00:26 Acetaminophen/ Hydrocodone Bitart ([place] 5/325) 1 tab Q6H PRN ORAL For Pain 4-10 03/26/20 13:45 04/02/20 13:44 03/29/20 17:04 Bisacodyl (Dulcolax) 10 mg DAILYPRN PRN RECTAL Constipation 03/26/20 09:15 06/24/20 09:14 Dextrose/Sodium Chloride 1,000 ml @ 60 mls/hr [id number] IV 03/26/20 08:15 04/25/20 08:14 03/29/20 20:43 Docusate Sodium (Colace) 100 mg TWICE A DAY ORAL 03/26/20 10:00 04/25/20 09:59 03/29/20 09:08 Enoxaparin Sodium (Lovenox) 60 mg EVERY 12 HOURS SUBQ 03/26/20 09:00 06/24/20 08:59 03/29/20 20:44 Guaifenesin/ Dextromethorphan (Robitussin DM Syrup) 15 ml Q6H PRN ORAL For Cough 03/26/20 03:00 06/24/20 02:59 03/30/20 00:30 Ibuprofen (Motrin) 600 mg Q8H PRN ORAL For Pain 03/26/20 00:00 04/25/20 00:00 03/28/20 21:15 Magnesium Hydroxide (Mom) 30 ml DAILYPRN PRN ORAL Constipation 03/26/20 09:15 04/25/20 09:14 03/26/20 16:27 Midodrine (Pro-Amatine) 5 mg THREE TIMES A DAY ORAL 03/26/20 13:00 06/24/20 12:59 03/29/20 17:05 Piperacillin Sod/ Tazobactam Sod 3.375 gm/Sodium Chloride 110 ml @ 27.5 mls/hr Q8H IVPB 03/27/20 10:00 04/03/20 09:59 03/30/20 00:59 Lor Millan M.D. Mar 30, 2020 07:40
[2020-03-30 08:00] VITALS: BP 114/57
[2020-03-30] MEDS: Docusate 100mg cap ORAL SCH ×2 (08:07→17:42)
[2020-03-30] MEDS: Enoxaparin 60mg Inj SUBQ SCH ×2 (08:11→21:22)
[2020-03-30 08:23] LABS: ANION GAP 7 mmol/L (5-15); BLOOD UREA NITROGEN 5 mg/dL (7-18); CALCIUM 8.9 MG/DL (8.5-10.1); CARBON DIOXIDE 30 MMOL/L (21-32); CHLORIDE 103 MMOL/L (98-107); CREATININE 0.7 MG/DL (0.55-1.30); POTASSIUM 3.2 MMOL/L (3.5-5.1); SODIUM 140 MMOL/L (136-145)
[2020-03-30 08:48] LABS: EOSINOPHILS % (AUTO) 0.8 % (0.0-3.0); HEMATOCRIT 34.3 % (37.0-47.0); HEMOGLOBIN 11.2 G/DL (12.0-16.0); LYMPHOCYTES % (AUTO) 14.2 % (20.0-45.0); MEAN CORPUSCULAR VOLUME 86 FL (80-99); MONOCYTES % (AUTO) 8.3 % (1.0-10.0); NEUTROPHILS % (AUTO) 75.6 % (45.0-75.0); PLATELET COUNT 380 K/UL (150-450); RED BLOOD COUNT 4.01 M/UL (4.20-5.40); RED CELL DISTRIBUTION WIDTH 12.6 % (11.6-14.8); WHITE BLOOD COUNT 14.3 K/UL (4.8-10.8)
--- NOTE | 2020-03-30 08:48 | NUR ---
CASE MANAGEMENT:REVIEW 03/30/20 SI: PNA. PULMONARY EMBOLI. COVID NEGATIVE 100.5 110 20 104/62 100% ON 2L/NC K-3.2 IS: IV ZOSYN Q8HRS IVF@60/HR MIDODRINE PO TID LOVENOX SQ Q12 NORCO PO Q6HRS PRN : TELEMETRY STATUS DCP; FROM HOME PLAN: WILL NEED TO WEAN TO ROOM AIR PRIOR TO DISCHARGE MONITOR TEMP
--- NOTE | 2020-03-30 10:06 | NUR ---
NURSE NOTES: received patient in bed A/A/Ox4, verbally responsive. on O2 2lpm via NC. sating 96-98%. no sob noted. negative for covid 19. PIV access on the right forearm, ivf infusing well. On alarm security or surveillance monitor placed. VSS. reiterated to call and ask for assistance to prevent fall or injury. Kept bed in the lowest position. call light is within easy reach. siderails are upx3. will continue plan of care.
--- NOTE | 2020-03-30 10:53 | Pulmonology Progress Note ---
Subjective ROS Limited/Unobtainable: No Interval Events: none major reported per nursing HEENT: Repors: no symptoms Respiratory: Reports: no symptoms Cardiovascular: Reports: no symptoms Gastrointestinal/Abdominal: Reports: no symptoms Musculoskeletal: Reports: pain, other - right mid back pain; better with ibuprofen and [place] Allergies: Coded Allergies: No Known Allergies (Unverified , 04/08/19) All Systems: reviewed and negative except above Objective Last 24 Hour Vital Signs Date Time Temp Pulse Resp B/P (MAP) Pulse Ox O2 Delivery O2 Flow Rate FiO2 03/30/20 09:47 98.5 03/30/20 09:00 Nasal Cannula 2.0 03/30/20 08:00 98.5 105 20 114/57 (76) 97 03/30/20 08:00 105 03/30/20 04:00 89 03/30/20 04:00 98.3 97 19 114/54 (74) 100 03/30/20 00:56 99.9 03/30/20 00:00 100 03/30/20 00:00 100.5 110 20 104/62 (76) 99 03/29/20 21:00 Nasal Cannula 2.0 03/29/20 20:00 106 03/29/20 20:00 100.2 106 20 123/59 (80) 97 03/29/20 16:33 103 03/29/20 15:59 97.2 111 18 105/52 (69) 96 03/29/20 15:56 114 03/29/20 12:32 103 03/29/20 12:00 96.8 100 20 107/53 (71) 97 Intake and Output 03/29/20 03/30/20 19:00 07:00 Intake Total 1157.5 ml 692.5 ml Balance 1157.5 ml 692.5 ml Intake Oral 360 ml 250 ml IV Total 797.5 ml 442.5 ml # Voids 3 2 General Appearance: no acute distress HEENT: atraumatic Respiratory: crackles/rales Cardiovascular: regular rhythm, tachycardia Abdomen: soft, non tender Laboratory Tests 03/30/20 07:24: White Blood Count 14.3H, Red Blood Count 4.01L, Hemoglobin 11.2L, Hematocrit 34.3L, Mean Corpuscular Volume 86, Mean Corpuscular Hemoglobin 28.0, Mean Corpuscular Hemoglobin Concent 32.7, Red Cell Distribution Width 12.6, Platelet Count 380, Mean Platelet Volume 7.2, Neutrophils (%) (Auto) 75.6H, Lymphocytes (%) (Auto) 14.2L, Monocytes (%) (Auto) 8.3, Eosinophils (%) (Auto) 0.8, Basophils (%) (Auto) 1.0, Sodium Level 140, Potassium Level 3.2L, Chloride Level 103, Carbon Dioxide Level 30, Anion Gap 7, Blood Urea Nitrogen 5L, Creatinine 0.7, Estimat Glomerular Filtration Rate > 60, Glucose Level 133H, Calcium Level 8.9 Current Medications Medications (Trade) Dose Ordered Sig/Magda Route PRN Reason Start Time Stop Time Status Last Admin Dose Admin Acetaminophen (Tylenol) 650 mg Q6H PRN ORAL Mild Pain/Fever 100.5 F 03/26/20 00:00 04/25/20 00:00 03/30/20 00:26 Acetaminophen/ Hydrocodone Bitart ([place] 5/325) 1 tab Q6H PRN ORAL For Pain 4-10 03/26/20 13:45 04/02/20 13:44 03/29/20 17:04 Bisacodyl (Dulcolax) 10 mg DAILYPRN PRN RECTAL Constipation 03/26/20 09:15 06/24/20 09:14 Dextrose/Sodium Chloride 1,000 ml @ 60 mls/hr [id number] IV 03/26/20 08:15 04/25/20 08:14 03/29/20 20:43 Docusate Sodium (Colace) 100 mg TWICE A DAY ORAL 03/26/20 10:00 04/25/20 09:59 03/30/20 08:07 Enoxaparin Sodium (Lovenox) 60 mg EVERY 12 HOURS SUBQ 03/26/20 09:00 06/24/20 08:59 03/30/20 08:11 Guaifenesin/ Dextromethorphan (Robitussin DM Syrup) 15 ml Q6H PRN ORAL For Cough 03/26/20 03:00 06/24/20 02:59 03/30/20 09:02 Ibuprofen (Motrin) 600 mg Q8H PRN ORAL For Pain 03/26/20 00:00 04/25/20 00:00 03/30/20 09:17 Magnesium Hydroxide (Mom) 30 ml DAILYPRN PRN ORAL Constipation 03/26/20 09:15 04/25/20 09:14 03/26/20 16:27 Midodrine (Pro-Amatine) 5 mg THREE TIMES A DAY ORAL 03/26/20 13:00 06/24/20 12:59 03/30/20 08:07 Piperacillin Sod/ Tazobactam Sod 3.375 gm/Sodium Chloride 110 ml @ 27.5 mls/hr Q8H IVPB 03/27/20 10:00 04/03/20 09:59 03/30/20 00:59 Assessment/Plan Assessment/Plan 1. ?Pneumonia with fever and leukocytosis -On Abx empirically per ID 2. Normoxemia -No indication for steroids for possible Covid at this time given good saturation on room air/low flow oxygen - Currently on 2L NC saturating at 95% - wean as tolerated 3. Pulmonary embolus, acute -Right posterior basal segmental PE extending into the subsegmental pulmonary arteries -Continue full dose Lovenox -Venous duplex US lower legs negative -Hypercoag work-up not needed due to age per heme onc - We will add Coumadin; pt can be discharged when INR >1.8 5. Elevated D-dimer -Duplex legs negative -On Lovenox 6. Thyroid nodules -Hematology oncology following 7. COVID-19 PCR negative (03/25) - now off isolation Attempted to reach Dahlia (daughter) [phone] for an update per her request but did not crop picker. No voice mail set up. Will try again later. The care for this patient was discussed with my supervising physician. Time spent for this case was approximately 31 minutes. Denzel Villalta Mar 30, 2020 10:53
[2020-03-30 11:51] VITALS: BP 123/67
[2020-03-30 12:49] LABS: INR 1.1 (0.9-1.1)
--- NOTE | 2020-03-30 13:00 | Cardiac Electrophysiology PN ---
Assessment/Plan Assessment/Plan 1. SOB due to Acute PE (Right posterior basal segmental PE extending into the subsegmental pulmonary arteries) on Lovenox and coumadin. EF 55%. Ruled out for [place] 2. Possible PNA with WBC 18K on Abx per Dr Alonzo 3. Low K replaced 4. Low BP. On Midodrine 5 tid. DW RN Subjective Subjective No CP or SOB. On Lovenox and Coumadin for PE. EF 55%. On RA. Covid is negative Objective Last 24 Hour Vital Signs Date Time Temp Pulse Resp B/P (MAP) Pulse Ox O2 Delivery O2 Flow Rate FiO2 03/30/20 12:00 103 03/30/20 11:51 99.4 102 22 123/67 (85) 99 03/30/20 09:47 98.5 03/30/20 09:00 Nasal Cannula 2.0 03/30/20 08:00 98.5 105 20 114/57 (76) 97 03/30/20 08:00 105 03/30/20 04:00 89 03/30/20 04:00 98.3 97 19 114/54 (74) 100 03/30/20 00:56 99.9 03/30/20 00:00 100 03/30/20 00:00 100.5 110 20 104/62 (76) 99 03/29/20 21:00 Nasal Cannula 2.0 03/29/20 20:00 106 03/29/20 20:00 100.2 106 20 123/59 (80) 97 03/29/20 16:33 103 03/29/20 15:59 97.2 111 18 105/52 (69) 96 03/29/20 15:56 114 Intake and Output 03/29/20 03/30/20 19:00 07:00 Intake Total 1157.5 ml 692.5 ml Balance 1157.5 ml 692.5 ml Intake Oral 360 ml 250 ml IV Total 797.5 ml 442.5 ml # Voids 3 2 Laboratory Tests Test 03/30/20 07:24 03/30/20 12:02 White Blood Count 14.3 K/UL (4.8-10.8) H Red Blood Count 4.01 M/UL (4.20-5.40) L Hemoglobin 11.2 G/DL (12.0-16.0) L Hematocrit 34.3 % (37.0-47.0) L Mean Corpuscular Volume 86 FL (80-99) Mean Corpuscular Hemoglobin 28.0 PG (27.0-31.0) Mean Corpuscular Hemoglobin Concent 32.7 G/DL (32.0-36.0) Red Cell Distribution Width 12.6 % (11.6-14.8) Platelet Count 380 K/UL (150-450) Mean Platelet Volume 7.2 FL (6.5-10.1) Neutrophils (%) (Auto) 75.6 % (45.0-75.0) H Lymphocytes (%) (Auto) 14.2 % (20.0-45.0) L Monocytes (%) (Auto) 8.3 % (1.0-10.0) Eosinophils (%) (Auto) 0.8 % (0.0-3.0) Basophils (%) (Auto) 1.0 % (0.0-2.0) Sodium Level 140 MMOL/L (136-145) Potassium Level 3.2 MMOL/L (3.5-5.1) L Chloride Level 103 MMOL/L (98-107) Carbon Dioxide Level 30 MMOL/L (21-32) Anion Gap 7 mmol/L (5-15) Blood Urea Nitrogen 5 mg/dL (7-18) L Creatinine 0.7 MG/DL (0.55-1.30) Estimat Glomerular Filtration Rate > 60 mL/min (>60) Glucose Level 133 MG/DL (74-106) H Calcium Level 8.9 MG/DL (8.5-10.1) Prothrombin Time 12.2 SEC (9.30-11.50) H Prothromb Time International Ratio 1.1 (0.9-1.1) Objective HEENT: No JVD CARDIOVASCULAR: RRR, No murmur. LUNGS: Poor air exchange. ABDOMEN: Bowel sounds distant. EXTREMITIES: No cyanosis, clubbing, or edema. NEUROLOGIC: moves all extremities, slightly weak. David Meek MD Mar 30, 2020 13:00
[2020-03-30] MEDS: D5 1/2NS 1,000 ML IV SCH (13:26)
--- NOTE | 2020-03-30 13:49 | NUR ---
NURSE NOTES: MADE DR ELINOR IBRAHIM RE: k+3.2. AWAITING FOR A CALLBACK. WILL CONT TO MONITOR. Addendum: 03/30/20 at 1414 by MARSHAL GARCIA LVN new order obtained and carried out. will cont to monitor
--- NOTE | 2020-03-30 14:30 | NUR ---
NURSE NOTES: O2 2L via NC titrated to 1.5L tolerating well with 99% O2 sat. still not ready for RA, saturation went down to 88%. Patient ambulates to the bathroom with assist. will cont to monitor.
[2020-03-30 15:36] VITALS: BP 107/60
[2020-03-30] MEDS ORDERED: Warfarin Sodium 5mg ORAL SCH (17:00)
--- NOTE | 2020-03-30 18:59 | NUR ---
NURSE HAND-OFF REPORT: Important Events on Shift:[ambulates without exertion. O2 to 1.5 via NC] Patient Status: [stable] Diet: []reg Pending Orders: [labs] Pending Results/Labs:[am] Pending MD notification:[] Latest Vital Signs: Temperature 98.9 , Pulse 86 , B/P 107 /60 , Respiratory Rate 20 , O2 SAT 95 , Nasal Cannula, O2 Flow Rate 2.0 . Vital Sign Comment: [] EKG Rhythm: Sinus Tachycardia Rhythm change?: N MD Notified?: - MD Response: Latest Duran Fall Score: 30 Fall Risk: Medium Risk Safety Measures: Call light Within Reach, Bed Alarm Zone 2, Side Rails Side Rails x3, Bed position Low and Locked. Fall Precautions: Patient Fall Education Report given to [Gho].
--- NOTE | 2020-03-30 19:30 | NUR ---
NURSE NOTES: Receive a report from MICHAEL Oliver. Round is made. No acute distress noted. No SOB noted but dry coughing persist. On O2 1.5L NC. IV is running on right FA as ordered. Call light within reach. Will continue to monitor. Addendum: 03/31/20 at 0004 by Aaron Goodman RN Pt requests sleeping pill. Will notify
[2020-03-30 20:00] VITALS: BP 118/55
--- NOTE | 2020-03-30 20:45 | NUR ---
NURSE NOTES: Notify Dr. Moore for pt's requesting of sleeping medication and elevated temperature as 100.6 F. Receive new orders. Order noted and carried out for sleeping pill and will contact to Dr. Millan for elevated temp.
[2020-03-30] MEDS ORDERED: Zolpidem 5mg tab ORAL PRN ×2 (21:00)
--- NOTE | 2020-03-30 21:00 | NUR ---
NURSE NOTES: Spoke with Dr. Millan. No new order at this time. Will continue to monitor.
[2020-03-30] MEDS: HYDROcodone/Acetamin 5/325 tab ORAL PRN (21:18)
--- NOTE | 2020-03-30 22:30 | NUR ---
NURSE NOTES: Fever dropped to 99.1 F after prn Tylenol 650mg. Will continue to monitor.
[2020-03-31] VITALS: BP 106/55
[2020-03-31] MEDS: Piperacillin/Tazobactam 3.375 GM in NS 110 ML IVPB SCH ×3 (01:50→17:48)
[2020-03-31 04:00] VITALS: BP 98/62
[2020-03-31] MEDS: D5 1/2NS 1,000 ML IV SCH ×2 (05:11→21:13)
[2020-03-31] MEDS: guaiFENesin /DM 10ml syrup ORAL PRN ×2 (05:33→17:30)
--- NOTE | 2020-03-31 06:41 | NUR ---
NURSE HAND-OFF REPORT: Important Events on Shift: Elevated temp--> Tylenol 650mg x1 given. MD aware. Given cough medication x2. Pain medication x1 Patient Status: [stable] Diet: [regular] Pending Orders: [] Pending Results/Labs:[] Pending MD notification:[] Latest Vital Signs: Temperature 99.0 , Pulse 90 , B/P 98 /62 , Respiratory Rate 20 , O2 SAT 99 , Nasal Cannula, O2 Flow Rate 1.5 . Vital Sign Comment: [] EKG Rhythm: Sinus Rhythm Rhythm change?: N MD Notified?: - MD Response: Latest Duran Fall Score: 45 Fall Risk: High Risk Safety Measures: Call light Within Reach, Bed Alarm Zone 2, Side Rails Side Rails x2, Bed position Low and Locked. Fall Precautions: Door Sign Patient Fall Education
[2020-03-31 06:45] LABS: BASOPHILS % (AUTO) 1.4 % (0.0-2.0); HEMATOCRIT 33.4 % (37.0-47.0); HEMOGLOBIN 10.6 G/DL (12.0-16.0); LYMPHOCYTES % (AUTO) 14.6 % (20.0-45.0); MEAN CORPUSCULAR VOLUME 85 FL (80-99); MONOCYTES % (AUTO) 8.3 % (1.0-10.0); NEUTROPHILS % (AUTO) 73.7 % (45.0-75.0); PLATELET COUNT 380 K/UL (150-450); RED BLOOD COUNT 3.91 M/UL (4.20-5.40); RED CELL DISTRIBUTION WIDTH 12.5 % (11.6-14.8); WHITE BLOOD COUNT 11.8 K/UL (4.8-10.8)
[2020-03-31 07:04] LABS: ANION GAP 7 mmol/L (5-15); BLOOD UREA NITROGEN 4 mg/dL (7-18); CALCIUM 9.1 MG/DL (8.5-10.1); CARBON DIOXIDE 31 MMOL/L (21-32); CHLORIDE 103 MMOL/L (98-107); CREATININE 0.7 MG/DL (0.55-1.30); POTASSIUM 3.4 MMOL/L (3.5-5.1); SODIUM 141 MMOL/L (136-145)
[2020-03-31 07:17] LABS: INR 1.1 (0.9-1.1)
--- NOTE | 2020-03-31 07:25 | NUR ---
LYN NOTES: received patient in bed A/A/Ox4, verbally responsive. on O2 1.5Lpm via NC. sating 96-98%. no sob or acute resp distress noted. ambulates with asssit. negative for covid 19. PIV access on the right forearm, ivf infusing well. On groundwater monitoring technician placed. reiterated to call and ask for assistance to prevent fall or injury. Kept bed in the lowest position. call light is within easy reach. siderails are upx2. will continue plan of care.
--- NOTE | 2020-03-31 07:25 | NUR ---
NURSE NOTES: Given report for MICHAEL Oliver.
[2020-03-31 08:00] VITALS: BP 118/56
[2020-03-31] MEDS: Docusate 100mg cap ORAL SCH ×2 (08:09→17:29)
[2020-03-31] MEDS: Enoxaparin 60mg Inj SUBQ SCH ×2 (08:10→21:13)
[2020-03-31] MEDS ORDERED: D5 1/2NS 1000ml IV ONE (10:02)
[2020-03-31] MEDS ORDERED: Tubing IV Secondary IV ONE (10:02)
--- NOTE | 2020-03-31 10:48 | NUR ---
NURSE NOTES: applied heat packs on patient's back. tolerating well. will cont to monitor
[2020-03-31 12:00] VITALS: BP 102/52
--- NOTE | 2020-03-31 12:00 | Pulmonology Progress Note ---
Subjective ROS Limited/Unobtainable: No Interval Events: none major reported per nursing HEENT: Repors: no symptoms Respiratory: Reports: no symptoms Cardiovascular: Reports: no symptoms Gastrointestinal/Abdominal: Reports: no symptoms Musculoskeletal: Reports: pain, other - right mid back pain; better with ibuprofen and [place] Allergies: Coded Allergies: No Known Allergies (Unverified , 04/08/19) All Systems: reviewed and negative except above Objective Last 24 Hour Vital Signs Date Time Temp Pulse Resp B/P (MAP) Pulse Ox O2 Delivery O2 Flow Rate FiO2 03/31/20 09:00 Nasal Cannula 2.0 03/31/20 08:00 102 03/31/20 08:00 99.3 96 16 118/56 (76) 94 03/31/20 04:00 74 03/31/20 04:00 99.0 90 20 98/62 (74) 99 03/31/20 00:00 78 03/31/20 00:00 99.1 87 20 106/55 (72) 98 03/30/20 22:30 99.1 03/30/20 21:00 Nasal Cannula 1.5 03/30/20 20:00 100.6 78 20 118/55 (76) 98 03/30/20 20:00 78 03/30/20 15:36 98.9 86 20 107/60 (76) 95 03/30/20 12:00 103 03/30/20 11:51 99.4 102 22 123/67 (85) 99 Intake and Output 03/30/20 03/31/20 19:00 07:00 Intake Total 327.5 ml 850 ml Balance 327.5 ml 850 ml Intake Oral 300 ml 250 ml IV Total 27.5 ml 600 ml # Voids 2 2 # Bowel Movements 1 General Appearance: no acute distress HEENT: atraumatic Respiratory: crackles/rales Cardiovascular: regular rhythm, tachycardia Abdomen: soft, non tender Laboratory Tests 03/30/20 12:02: Prothrombin Time 12.2H, Prothromb Time International Ratio 1.1 03/31/20 05:50: Prothrombin Time 11.9H, Prothromb Time International Ratio 1.1, White Blood Count 11.8H, Red Blood Count 3.91L, Hemoglobin 10.6L, Hematocrit 33.4L, Mean Corpuscular Volume 85, Mean Corpuscular Hemoglobin 27.2, Mean Corpuscular Hemoglobin Concent 31.8L, Red Cell Distribution Width 12.5, Platelet Count 380, Mean Platelet Volume 6.7, Neutrophils (%) (Auto) 73.7, Lymphocytes (%) (Auto) 14.6L, Monocytes (%) (Auto) 8.3, Eosinophils (%) (Auto) 2.0, Basophils (%) (Auto) 1.4, Sodium Level 141, Potassium Level 3.4L, Chloride Level 103, Carbon Dioxide Level 31, Anion Gap 7, Blood Urea Nitrogen 4L, Creatinine 0.7, Estimat Glomerular Filtration Rate > 60, Glucose Level 117H, Calcium Level 9.1 Current Medications Medications (Trade) Dose Ordered Sig/Magda Route PRN Reason Start Time Stop Time Status Last Admin Dose Admin Acetaminophen (Tylenol) 650 mg Q6H PRN ORAL Mild Pain/Fever 100.5 F 03/26/20 00:00 04/25/20 00:00 03/30/20 21:18 Acetaminophen/ Hydrocodone Bitart ([place] 5/325) 1 tab Q6H PRN ORAL For Pain 4-10 03/26/20 13:45 04/02/20 13:44 03/30/20 21:18 Bisacodyl (Dulcolax) 10 mg DAILYPRN PRN RECTAL Constipation 03/26/20 09:15 06/24/20 09:14 Dextrose/Sodium Chloride 1,000 ml @ 60 mls/hr [id number] IV 03/26/20 08:15 04/25/20 08:14 03/31/20 05:11 Docusate Sodium (Colace) 100 mg TWICE A DAY ORAL 03/26/20 10:00 04/25/20 09:59 03/31/20 08:09 Enoxaparin Sodium (Lovenox) 60 mg EVERY 12 HOURS SUBQ 03/26/20 09:00 06/24/20 08:59 03/31/20 08:10 Guaifenesin/ Dextromethorphan (Robitussin DM Syrup) 15 ml Q6H PRN ORAL For Cough 03/26/20 03:00 06/24/20 02:59 03/31/20 05:33 Ibuprofen (Motrin) 600 mg Q8H PRN ORAL For Pain 03/26/20 00:00 04/25/20 00:00 03/31/20 09:03 Magnesium Hydroxide (Mom) 30 ml DAILYPRN PRN ORAL Constipation 03/26/20 09:15 04/25/20 09:14 03/26/20 16:27 Midodrine (Pro-Amatine) 5 mg THREE TIMES A DAY ORAL 03/26/20 13:00 06/24/20 12:59 03/31/20 08:09 Piperacillin Sod/ Tazobactam Sod 3.375 gm/Sodium Chloride 110 ml @ 27.5 mls/hr Q8H IVPB 03/27/20 10:00 04/03/20 09:59 03/31/20 09:43 Warfarin Sodium (Coumadin per pharmacy) 1 ea DAILY PRN MISC Per rx protocol 03/30/20 11:00 04/29/20 10:59 Warfarin Sodium (Coumadin) 5 mg COUMADIN ORAL 03/31/20 17:00 03/31/20 18:00 Zolpidem Tartrate (Ambien) 5 mg HSPRN PRN ORAL Insomnia 03/30/20 21:00 04/06/20 20:59 Assessment/Plan Assessment/Plan 1. ?Pneumonia with fever and leukocytosis -On Abx empirically per ID 2. Normoxemia -No indication for steroids for possible Covid at this time given good saturation on room air/low flow oxygen - Currently on 1L NC saturating at 95% - wean as tolerated 3. Pulmonary embolus, acute -Right posterior basal segmental PE extending into the subsegmental pulmonary arteries -Continue full dose Lovenox -Venous duplex US lower legs negative -Hypercoag work-up not needed due to age per heme onc - We will add Coumadin; pt can be discharged when INR >1.8 5. Elevated D-dimer -Duplex legs negative -On Lovenox 6. Thyroid nodules -Hematology oncology following 7. COVID-19 PCR negative (03/25) - now off isolation Attempted to reach Dahlia (daughter) [phone] for an update per her request but did not picker operator. No voice mail set up. Will try again later. -> Long discussion with daughter, Dahlia who agrees with the plan (03/31) The care for this patient was discussed with my supervising physician. Time spent for this case was approximately 31 minutes. Denzel Villalta Mar 31, 2020 12:00
--- NOTE | 2020-03-31 12:51 | NUR ---
RD ASSESSMENT & RECOMMENDATIONS SEE CARE ACTIVITY FOR COMPLETE ASSESSMENT DAILY ESTIMATED NEEDS: Needs based on Pulmonary, 66kg 25-30 kcals/kg total kcals 1-1.3 g protein/kg 66-86 g total protein 25-30 mL/kg total fluid mLs NUTRITION DIAGNOSIS: Altered nutrition related lab values R/T clinical condition as evidenced by low K (3.4, 3.2) CURRENT DIET:REGULAR PO DIET RECOMMENDATIONS: Regular/ texture as tolerated ADDITIONAL RECOMMENDATIONS: * Ensure Enlive BID w/ variable intake (350kcal/20g prot each) * Monitor lytes, replete as needed (low K) * Calibrated bedscale wt
--- NOTE | 2020-03-31 15:47 | NUR ---
NURSE NOTES: K+3.4 today's lab and obtained new order from Dr Meek. will cont to monitor.
[2020-03-31 15:54] VITALS: BP 111/48
--- NOTE | 2020-03-31 16:18 | Cardiac Electrophysiology PN ---
Assessment/Plan Assessment/Plan 1. SOB due to acute Right posterior basal segmental PE on Lovenox and Coumadin. EF 55%. Ruled out for [place] INR still less than 2 2. PNA with WBC 18K on Abx per Dr Alonzo 3. Low K replaced 4. Low BP. On Midodrine 5 tid. DW RN Subjective Subjective No CP or SOB. On Lovenox and Coumadin for PE. EF 55%. On RA. Covid is negative. INR still 1.1 Objective Last 24 Hour Vital Signs Date Time Temp Pulse Resp B/P (MAP) Pulse Ox O2 Delivery O2 Flow Rate FiO2 03/31/20 15:54 98.1 82 16 111/48 (69) 95 03/31/20 12:00 106 03/31/20 12:00 99.9 87 16 102/52 (69) 98 03/31/20 09:00 Nasal Cannula 2.0 03/31/20 08:00 102 03/31/20 08:00 99.3 96 16 118/56 (76) 94 03/31/20 04:00 74 03/31/20 04:00 99.0 90 20 98/62 (74) 99 03/31/20 00:00 78 03/31/20 00:00 99.1 87 20 106/55 (72) 98 03/30/20 22:30 99.1 03/30/20 21:00 Nasal Cannula 1.5 03/30/20 20:00 100.6 78 20 118/55 (76) 98 03/30/20 20:00 78 Intake and Output 03/30/20 03/31/20 19:00 07:00 Intake Total 327.5 ml 910 ml Balance 327.5 ml 910 ml Intake Oral 300 ml 250 ml IV Total 27.5 ml 660 ml # Voids 2 2 # Bowel Movements 1 Laboratory Tests Test 03/31/20 05:50 White Blood Count 11.8 K/UL (4.8-10.8) H Red Blood Count 3.91 M/UL (4.20-5.40) L Hemoglobin 10.6 G/DL (12.0-16.0) L Hematocrit 33.4 % (37.0-47.0) L Mean Corpuscular Volume 85 FL (80-99) Mean Corpuscular Hemoglobin 27.2 PG (27.0-31.0) Mean Corpuscular Hemoglobin Concent 31.8 G/DL (32.0-36.0) L Red Cell Distribution Width 12.5 % (11.6-14.8) Platelet Count 380 K/UL (150-450) Mean Platelet Volume 6.7 FL (6.5-10.1) Neutrophils (%) (Auto) 73.7 % (45.0-75.0) Lymphocytes (%) (Auto) 14.6 % (20.0-45.0) L Monocytes (%) (Auto) 8.3 % (1.0-10.0) Eosinophils (%) (Auto) 2.0 % (0.0-3.0) Basophils (%) (Auto) 1.4 % (0.0-2.0) Prothrombin Time 11.9 SEC (9.30-11.50) H Prothromb Time International Ratio 1.1 (0.9-1.1) Sodium Level 141 MMOL/L (136-145) Potassium Level 3.4 MMOL/L (3.5-5.1) L Chloride Level 103 MMOL/L (98-107) Carbon Dioxide Level 31 MMOL/L (21-32) Anion Gap 7 mmol/L (5-15) Blood Urea Nitrogen 4 mg/dL (7-18) L Creatinine 0.7 MG/DL (0.55-1.30) Estimat Glomerular Filtration Rate > 60 mL/min (>60) Glucose Level 117 MG/DL (74-106) H Calcium Level 9.1 MG/DL (8.5-10.1) Objective HEENT: No JVD CARDIOVASCULAR: RRR, No murmur. LUNGS: Poor air exchange. ABDOMEN: Bowel sounds distant. EXTREMITIES: No cyanosis, clubbing, or edema. NEUROLOGIC: moves all extremities, slightly weak. David Meek MD Mar 31, 2020 16:18
[2020-03-31] MEDS ORDERED: Warfarin Sodium 5mg ORAL SCH (17:00)
--- NOTE | 2020-03-31 19:16 | NUR ---
NURSE HAND-OFF REPORT: Important Events on Shift:[K+3.4 replaced. pain management] Patient Status: [FC] Diet: [reg] Pending Orders: [] Pending Results/Labs:[] Pending MD notification:[] Latest Vital Signs: Temperature 98.1 , Pulse 88 , B/P 111 /48 , Respiratory Rate 16 , O2 SAT 95 , Nasal Cannula, O2 Flow Rate 2.0 . Vital Sign Comment: [] EKG Rhythm: Sinus Rhythm Rhythm change?: N MD Notified?: - MD Response: Latest Duran Fall Score: 45 Fall Risk: High Risk Safety Measures: Call light Within Reach, Bed Alarm Zone 1, Side Rails Side Rails x2, Bed position Low and Locked. Fall Precautions: Door Sign Patient Fall Education Report given to [gho].
--- NOTE | 2020-03-31 19:20 | NUR ---
NURSE NOTES: Receive a report from MICHAEL Oliver. Awake and alert. No acute distress noted. No SOB noted while in bed. Back pain is tolerating. Offer pain medication but did not want to. On O2 1L NC. Intermittent non-productive coughing noted. Given prn medication the end of AM shift. IV is running as ordered. Call light within reach. Provide fall precautions. Will continue to monitor.
[2020-03-31 20:00] VITALS: BP 133/64
[2020-04-01] VITALS: BP 111/62
[2020-04-01] MEDS: Piperacillin/Tazobactam 3.375 GM in NS 110 ML IVPB SCH ×3 (01:40→17:09)
[2020-04-01 04:00] VITALS: BP 119/66
[2020-04-01] MEDS: guaiFENesin /DM 10ml syrup ORAL PRN ×3 (04:41→23:53)
--- NOTE | 2020-04-01 06:22 | NUR ---
NURSE HAND-OFF REPORT: Important Events on Shift: Back pain tolerating. No SOB. Given prn Robitussin x1 for coughing. Patient Status: [stable] Diet: [regular] Pending Orders: [] Pending Results/Labs:[] Pending MD notification:[] Latest Vital Signs: Temperature 99.9 , Pulse 80 , B/P 119 /66 , Respiratory Rate 18 , O2 SAT 98 , Nasal Cannula, O2 Flow Rate 1.5 . Vital Sign Comment: [] EKG Rhythm: Sinus Rhythm Rhythm change?: N MD Notified?: - MD Response: Latest Duran Fall Score: 45 Fall Risk: High Risk Safety Measures: Call light Within Reach, Bed Alarm Zone 1, Side Rails Side Rails x2, Bed position Low and Locked. Fall Precautions: Door Sign Patient Fall Education
--- NOTE | 2020-04-01 07:25 | NUR ---
NURSE NOTES: received patient in bed A/A/Ox4, able to make needs known. on O2 1Lpm via NC. sating 96-98%. no sob or acute resp distress noted. ambulates with asssit. negative for covid 19. PIV access on the right forearm, ivf infusing well. On loom fixer supervisor placed. reiterated to call and ask for assistance to prevent fall or injury. Kept bed in the lowest position. call light is within easy reach. siderails are upx2. will continue plan of care.
--- NOTE | 2020-04-01 07:30 | NUR ---
NURSE NOTES: Given report from MICHAEL Oliver.
[2020-04-01 07:53] VITALS: BP 122/60
[2020-04-01] MEDS: Docusate 100mg cap ORAL SCH ×2 (07:59→17:00)
[2020-04-01] MEDS: Enoxaparin 60mg Inj SUBQ SCH ×2 (08:00→20:13)
[2020-04-01 08:29] LABS: INR 1.4 (0.9-1.1)
--- NOTE | 2020-04-01 08:59 | Infectious Diseases Prog Note ---
Assessment/Plan 69yo F with: Febrile to 100.8 Back pain Pulmonary embolus, acute R/o COVID Satting well on 2L NC Leukocytosis to 16 Lymphopenia / COVID PCR neg BCx NTD UA neg, UCx mixed jono CTA chest: 1. Right posterior basal segmental pulmonary embolism extending into the subsegmental pulmonary arteries. No evidence of right heart strain. 2. Right lung base airspace opacities likely sequela of ischemia from pulmonary embolism. 3. Left lung base atelectasis. Underlying concomitant infectious process is not definitively excluded. 4. Bilateral thyroid nodules. Flu neg Cr 0.9 Plan: Cont Zosyn #6/7 empiric given ongoing fevers, leukocytosis (though could also all be 2/2 PE) On discharge can transition to levofloxacin 500mg PO daily to complete 7 day course for possible pneumonia (1 more day of abx) Anticoagulation for PE per primary Trend WBC - improving 03/27 SP CTX #2 empiric Monitor CBC/CMP Monitor temp curve, hemodynamics Monitor resp status D/w RN Thank you for this consult. [facility] will continue to follow. Subjective Allergies: Coded Allergies: No Known Allergies (Unverified , 04/08/19) AF NAD in bed on 1L NC Says breathing is improving WBC improving to 11 yesterday Objective Last 24 Hour Vital Signs Date Time Temp Pulse Resp B/P (MAP) Pulse Ox O2 Delivery O2 Flow Rate FiO2 04/01/20 08:00 98 04/01/20 07:53 99.3 85 18 122/60 (80) 98 04/01/20 04:00 80 04/01/20 04:00 99.9 80 18 119/66 (83) 98 04/01/20 00:00 99.0 85 18 111/62 (78) 98 04/01/20 00:00 76 03/31/20 21:00 Nasal Cannula 1.5 03/31/20 20:00 98.2 104 18 133/64 (87) 92 03/31/20 20:00 117 03/31/20 18:00 98.1 03/31/20 16:00 88 03/31/20 15:54 98.1 82 16 111/48 (69) 95 03/31/20 12:00 106 03/31/20 12:00 99.9 87 16 102/52 (69) 98 03/31/20 09:00 Nasal Cannula 2.0 Height (Feet): 5 Height (Inches): 4.00 Weight (Pounds): 145 Gen: NAD HEENT: NCAT Pulm: BL chest rise on NC, non-labored Abd: Non-distended Ext: No c/c/e Skin: No visible rashes Neuro: Awake, alert, interactive Laboratory Tests Test 04/01/20 07:20 Prothrombin Time 14.6 SEC (9.30-11.50) H Prothromb Time International Ratio 1.4 (0.9-1.1) H Current Medications Medications (Trade) Dose Ordered Sig/Magda Route PRN Reason Start Time Stop Time Status Last Admin Dose Admin Acetaminophen (Tylenol) 650 mg Q6H PRN ORAL Mild Pain/Fever 100.5 F 03/26/20 00:00 04/25/20 00:00 03/30/20 21:18 Acetaminophen/ Hydrocodone Bitart ([place] 5/325) 1 tab Q6H PRN ORAL For Pain 4-10 03/26/20 13:45 04/02/20 13:44 03/30/20 21:18 Bisacodyl (Dulcolax) 10 mg DAILYPRN PRN RECTAL Constipation 03/26/20 09:15 06/24/20 09:14 Dextrose/Sodium Chloride 1,000 ml @ 60 mls/hr [id number] IV 03/26/20 08:15 04/25/20 08:14 03/31/20 21:13 Docusate Sodium (Colace) 100 mg TWICE A DAY ORAL 03/26/20 10:00 04/25/20 09:59 04/01/20 07:59 Enoxaparin Sodium (Lovenox) 60 mg EVERY 12 HOURS SUBQ 03/26/20 09:00 06/24/20 08:59 04/01/20 08:00 Guaifenesin/ Dextromethorphan (Robitussin DM Syrup) 15 ml Q6H PRN ORAL For Cough 03/26/20 03:00 06/24/20 02:59 04/01/20 04:41 Ibuprofen (Motrin) 600 mg Q8H PRN ORAL For Pain 03/26/20 00:00 04/25/20 00:00 04/01/20 08:08 Magnesium Hydroxide (Mom) 30 ml DAILYPRN PRN ORAL Constipation 03/26/20 09:15 04/25/20 09:14 03/26/20 16:27 Midodrine (Pro-Amatine) 5 mg THREE TIMES A DAY ORAL 03/26/20 13:00 06/24/20 12:59 04/01/20 07:59 Piperacillin Sod/ Tazobactam Sod 3.375 gm/Sodium Chloride 110 ml @ 27.5 mls/hr Q8H IVPB 03/27/20 10:00 04/03/20 09:59 04/01/20 01:40 Warfarin Sodium (Coumadin per pharmacy) 1 ea DAILY PRN MISC Per rx protocol 03/30/20 11:00 04/29/20 10:59 Warfarin Sodium (Coumadin) 5 mg COUMADIN ORAL 04/01/20 17:00 04/01/20 19:00 Zolpidem Tartrate (Ambien) 5 mg HSPRN PRN ORAL Insomnia 03/30/20 21:00 04/06/20 20:59 Lor Millan M.D. Apr 01, 2020 08:59
--- NOTE | 2020-04-01 09:23 | General Progress Note ---
Subjective HEENT: Denies: no symptoms, eye pain, blurred vision, tearing, double vision, ear pain, ear discharge, nose pain, nose congestion, throat pain, throat swelling, mouth pain, mouth swelling, other Cardiovascular: Denies: no symptoms, chest pain, edema, irregular heart rate, lightheadedness, palpitations, syncope, other Respiratory: Denies: no symptoms, cough, orthopnea, shortness of breath, SOB with excertion, SOB at rest, sputum, stridor, wheezing, other Gastrointestinal/Abdominal: Denies: no symptoms, abdomen distended, abdominal pain, black stools, tarry stools, blood in stool, constipated, diarrhea, difficulty swallowing, nausea, poor appetite, poor fluid intake, rectal bleeding, vomiting, other Genitourinary: Denies: no symptoms, burning, discharge, frequency, flank pain, hematuria, incontinence, pain, urgency, other Neurologic/Psychiatric: Denies: no symptoms, anxiety, depressed, emotional problems, headache, numbness, paresthesia, pre-existing deficit, seizure, tingling, tremors, weakness, other Endocrine: Denies: no symptoms, excessive sweating, flushing, intolerance to cold, intolerance to heat, increased hunger, increased thirst, increased urine, unexplained weight gain, unexplained weight loss, other Allergies: Coded Allergies: No Known Allergies (Unverified , 04/08/19) Subjective 03/27 on nc, with back pain, on ivf, labs are noted, downtrending hgb 03/28 zosyn noted, being rule out for covid, meds reviewed 03/29 labs reviewed, with 2lnc, comfortable, able to converse 03/30 meds noted, no bleeding, dw rn, coughing still, abx 04/01 labs are noted, no bleeding, meds reviewed, on 1l nc, on abx Objective Last 24 Hour Vital Signs Date Time Temp Pulse Resp B/P (MAP) Pulse Ox O2 Delivery O2 Flow Rate FiO2 04/01/20 08:00 98 04/01/20 07:53 99.3 85 18 122/60 (80) 98 04/01/20 04:00 80 04/01/20 04:00 99.9 80 18 119/66 (83) 98 04/01/20 00:00 99.0 85 18 111/62 (78) 98 04/01/20 00:00 76 03/31/20 21:00 Nasal Cannula 1.5 03/31/20 20:00 98.2 104 18 133/64 (87) 92 03/31/20 20:00 117 03/31/20 18:00 98.1 03/31/20 16:00 88 03/31/20 15:54 98.1 82 16 111/48 (69) 95 03/31/20 12:00 106 03/31/20 12:00 99.9 87 16 102/52 (69) 98 Intake and Output 03/31/20 04/01/20 19:00 07:00 Intake Total 740.0 ml 1395 ml Balance 740.0 ml 1395 ml Intake Oral 510 ml 750 ml IV Total 230.0 ml 645 ml # Voids 5 3 # Bowel Movements 2 Laboratory Tests 04/01/20 07:20: Prothrombin Time 14.6H, Prothromb Time International Ratio 1.4H Height (Feet): 5 Height (Inches): 4.00 Weight (Pounds): 145 Objective Physical Exam General: Awake and alert, no acute distress, mild fever, anxious appearing HEENT: NC/AT. EOMI. dry mucous membranes. Cardiovascular: Tachycardic. S1 and S2 normal. No murmur appreciated Resp: Normal work of breathing. No cough or wheezing during exam. ++crackles bilaterally. Abdomen: Abdomen is soft, nondistended. Nontender Skin: Intact. No abrasions, laceration or rash over the exposed skin MSK: Normal tone and bulk. Moving all extremities. Neuro: Awake and alert. Mentating appropriately. Assessment/Plan Status: stable, progressing Assessment/Plan: IM COVERING Assessment and Recs # Right posterior basal segmental pulmonary embolism extending into the subsegmental pulmonary arteries. No evidence of right heart strain. Right lung base airspace opacities likely sequela of ischemia from pulmonary embolism. --> anticoagulation has been started lovenox bid --> r/o bleeding --> venous duplex lower legs--> NEG --> hypercoag w/u not needed due to age # Elevated ddimer r/o infection --> duplex legs as needed --> duplex is negative # Anemia of chronic disease --> hgb 10->10 --> no bleeding at this time --> ferritin is elev # Leukocytosis due to reactive process --> abx as needed zosyn --> smear is noted --> on abx --> r/o covid --> wbc 19-->16 # Pneumonia -> abx as needed zosyn # Thyroid nodule -> r/o nodules -> us thyroid as needed # Dvt ppx lovenox bid Appreciate consultation and dw Rn Kenny Aldana MD Apr 01, 2020 09:23
--- NOTE | 2020-04-01 10:06 | Pulmonology Progress Note ---
Subjective ROS Limited/Unobtainable: No Interval Events: none major reported per nursing HEENT: Repors: no symptoms Respiratory: Reports: no symptoms Cardiovascular: Reports: no symptoms Gastrointestinal/Abdominal: Reports: no symptoms Musculoskeletal: Reports: pain, other - right mid back pain; better with ibuprofen and [place] Allergies: Coded Allergies: No Known Allergies (Unverified , 04/08/19) All Systems: reviewed and negative except above Objective Last 24 Hour Vital Signs Date Time Temp Pulse Resp B/P (MAP) Pulse Ox O2 Delivery O2 Flow Rate FiO2 04/01/20 08:00 98 04/01/20 07:53 99.3 85 18 122/60 (80) 98 04/01/20 04:00 80 04/01/20 04:00 99.9 80 18 119/66 (83) 98 04/01/20 00:00 99.0 85 18 111/62 (78) 98 04/01/20 00:00 76 03/31/20 21:00 Nasal Cannula 1.5 03/31/20 20:00 98.2 104 18 133/64 (87) 92 03/31/20 20:00 117 03/31/20 18:00 98.1 03/31/20 16:00 88 03/31/20 15:54 98.1 82 16 111/48 (69) 95 03/31/20 12:00 106 03/31/20 12:00 99.9 87 16 102/52 (69) 98 Intake and Output 03/31/20 04/01/20 19:00 07:00 Intake Total 740.0 ml 1395 ml Balance 740.0 ml 1395 ml Intake Oral 510 ml 750 ml IV Total 230.0 ml 645 ml # Voids 5 3 # Bowel Movements 2 General Appearance: no acute distress HEENT: atraumatic Respiratory: crackles/rales Cardiovascular: regular rhythm, tachycardia Abdomen: soft, non tender Laboratory Tests 04/01/20 07:20: Prothrombin Time 14.6H, Prothromb Time International Ratio 1.4H Current Medications Medications (Trade) Dose Ordered Sig/Magda Route PRN Reason Start Time Stop Time Status Last Admin Dose Admin Acetaminophen (Tylenol) 650 mg Q6H PRN ORAL Mild Pain/Fever 100.5 F 03/26/20 00:00 04/25/20 00:00 03/30/20 21:18 Acetaminophen/ Hydrocodone Bitart ([place] 5/325) 1 tab Q6H PRN ORAL For Pain 4-10 03/26/20 13:45 04/02/20 13:44 03/30/20 21:18 Bisacodyl (Dulcolax) 10 mg DAILYPRN PRN RECTAL Constipation 03/26/20 09:15 06/24/20 09:14 Dextrose/Sodium Chloride 1,000 ml @ 60 mls/hr [id number] IV 03/26/20 08:15 04/25/20 08:14 03/31/20 21:13 Docusate Sodium (Colace) 100 mg TWICE A DAY ORAL 03/26/20 10:00 04/25/20 09:59 04/01/20 07:59 Enoxaparin Sodium (Lovenox) 60 mg EVERY 12 HOURS SUBQ 03/26/20 09:00 06/24/20 08:59 04/01/20 08:00 Guaifenesin/ Dextromethorphan (Robitussin DM Syrup) 15 ml Q6H PRN ORAL For Cough 03/26/20 03:00 06/24/20 02:59 04/01/20 04:41 Ibuprofen (Motrin) 600 mg Q8H PRN ORAL For Pain 03/26/20 00:00 04/25/20 00:00 04/01/20 08:08 Magnesium Hydroxide (Mom) 30 ml DAILYPRN PRN ORAL Constipation 03/26/20 09:15 04/25/20 09:14 03/26/20 16:27 Midodrine (Pro-Amatine) 5 mg THREE TIMES A DAY ORAL 03/26/20 13:00 06/24/20 12:59 04/01/20 07:59 Piperacillin Sod/ Tazobactam Sod 3.375 gm/Sodium Chloride 110 ml @ 27.5 mls/hr Q8H IVPB 03/27/20 10:00 04/03/20 09:59 04/01/20 01:40 Warfarin Sodium (Coumadin per pharmacy) 1 ea DAILY PRN MISC Per rx protocol 03/30/20 11:00 04/29/20 10:59 Warfarin Sodium (Coumadin) 5 mg COUMADIN ORAL 04/01/20 17:00 04/01/20 19:00 Zolpidem Tartrate (Ambien) 5 mg HSPRN PRN ORAL Insomnia 03/30/20 21:00 04/06/20 20:59 Assessment/Plan Assessment/Plan 1. ?Pneumonia with fever and leukocytosis -On Abx empirically per ID - fever and leukocytosis improving 2. Normoxemia -No indication for steroids at this time given good saturation on room air/low flow oxygen - Currently on 1L NC saturating at 95% - wean as tolerated 3. Pulmonary embolus, acute -Right posterior basal segmental PE extending into the subsegmental pulmonary arteries -Continue full dose Lovenox -Venous duplex US lower legs negative -Hypercoag work-up not needed due to age per heme onc - We will add Coumadin; pt can be discharged when INR >1.8 5. Elevated D-dimer -Duplex legs negative -On Lovenox for DVT ppx 6. Thyroid nodules -Hematology oncology following 7. 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 No voice mail set up. Will try again later. -> Long discussion with daughterDahlia who agrees with the plan (03/31) The care for this patient was discussed with my supervising physician. Time spent for this case was approximately 31 minutes. Denzel Villalta Apr 01, 2020 10:06
[2020-04-01 12:00] VITALS: BP 98/60
[2020-04-01] MEDS: D5 1/2NS 1,000 ML IV SCH ×2 (12:47→15:51)
--- NOTE | 2020-04-01 15:18 | Cardiac Electrophysiology PN ---
Assessment/Plan Assessment/Plan 1. SOB due to acute Right posterior basal segmental PE on Lovenox and Coumadin. EF 55%. Ruled out for [place] INR still less than 2 2. PNA with WBC 18K on Abx per Dr Alonzo 3. Low K replaced 4. Low BP. On Midodrine 5 tid. DW RN Subjective Subjective No CP or SOB. On Lovenox and Coumadin for PE. EF 55%. On RA. Covid is negative. INR still less than 2 Objective Last 24 Hour Vital Signs Date Time Temp Pulse Resp B/P (MAP) Pulse Ox O2 Delivery O2 Flow Rate FiO2 04/01/20 12:00 97.9 75 18 98/60 (73) 96 04/01/20 12:00 75 04/01/20 09:00 Nasal Cannula 1.0 04/01/20 08:38 99.3 04/01/20 08:00 98 04/01/20 07:53 99.3 85 18 122/60 (80) 98 04/01/20 04:00 80 04/01/20 04:00 99.9 80 18 119/66 (83) 98 04/01/20 00:00 99.0 85 18 111/62 (78) 98 04/01/20 00:00 76 03/31/20 21:00 Nasal Cannula 1.5 03/31/20 20:00 98.2 104 18 133/64 (87) 92 03/31/20 20:00 117 03/31/20 18:00 98.1 03/31/20 16:00 88 03/31/20 15:54 98.1 82 16 111/48 (69) 95 Intake and Output 03/31/20 04/01/20 19:00 07:00 Intake Total 740.0 ml 1455 ml Balance 740.0 ml 1455 ml Intake Oral 510 ml 750 ml IV Total 230.0 ml 705 ml # Voids 5 3 # Bowel Movements 2 Laboratory Tests Test 04/01/20 07:20 Prothrombin Time 14.6 SEC (9.30-11.50) H Prothromb Time International Ratio 1.4 (0.9-1.1) H Objective HEENT: No JVD CARDIOVASCULAR: RRR, No murmur. LUNGS: Poor air exchange. ABDOMEN: Bowel sounds distant. EXTREMITIES: No cyanosis, clubbing, or edema. NEUROLOGIC: moves all extremities, slightly weak. David Meek MD Apr 01, 2020 15:18
[2020-04-01 15:25] VITALS: BP 100/54
[2020-04-01] MEDS ORDERED: Warfarin Sodium 5mg ORAL SCH (17:00)
--- NOTE | 2020-04-01 19:10 | NUR ---
NURSE HAND-OFF REPORT: Important Events on Shift:[PAIN MANAGEMENT; ] Patient Status: [FC] Diet: [REG] Pending Orders: [LABS] Pending Results/Labs:[IN AM] Pending MD notification:[] Latest Vital Signs: Temperature 98.1 , Pulse 89 , B/P 100 /54 , Respiratory Rate 18 , O2 SAT 98 , Nasal Cannula, O2 Flow Rate 1.0 . Vital Sign Comment: [] EKG Rhythm: Sinus Rhythm Rhythm change?: N MD Notified?: - MD Response: Latest Duran Fall Score: 45 Fall Risk: High Risk Safety Measures: Call light Within Reach, Bed Alarm Zone 1, Side Rails Side Rails x2, Bed position Low and Locked. Fall Precautions: Door Sign Patient Fall Education Report given to [TIM].
--- NOTE | 2020-04-01 19:30 | NUR ---
NURSE NOTES: Report received from MICHAEL Oliver. Patient is awake on bed, alert and oriented x 4. On regular diet, instructed and amenable. On oxygen via nasal cannula @ 1lpm saturating 95-96%. On regular diet, instructed and amenable. IS site is on right forearm g-20 running D5 1/2NS @ 60cc/hour. Safety measures are in place, bed in lowest and locked position, side rails up x 2, call light button and bedside table within reach, instructed to call for any assistance needed. Will continue plan of care.
[2020-04-01 20:00] VITALS: BP 132/61
--- NOTE | 2020-04-01 22:00 | NUR ---
NURSE NOTES: Patient has been saturating 94-96% on nasal cannula @ 1Lpm and no acute respiratory distress noted. Titrated her down to room air and saturating 96%. Will continue to monitor.
[2020-04-02] VITALS: BP 126/64
[2020-04-02] MEDS: Piperacillin/Tazobactam 3.375 GM in NS 110 ML IVPB SCH ×3 (01:38→17:08)
[2020-04-02 04:00] VITALS: BP 119/58
--- NOTE | 2020-04-02 04:00 | NUR ---
NURSE NOTES: Patient has been resting and no complaints made. Sponge bath done and assisted on her oral care. Will continue to monitor.
--- NOTE | 2020-04-02 06:10 | Hematology/Onc Progress Note ---
Assessment/Plan Assessment/Plan IM COVERING Assessment and Recs # Right posterior basal segmental pulmonary embolism extending into the subsegmental pulmonary arteries. No evidence of right heart strain. Right lung base airspace opacities likely sequela of ischemia from pulmonary embolism. --> anticoagulation has been started lovenox bid --> r/o bleeding --> venous duplex lower legs--> NEG --> hypercoag w/u not needed due to age # Elevated ddimer r/o infection --> duplex legs as needed --> duplex is negative # Anemia of chronic disease --> hgb 10->10 --> no bleeding at this time --> ferritin is elev # Leukocytosis due to reactive process --> abx as needed zosyn --> smear is noted --> on abx --> r/o covid --> wbc 19-->16 # Pneumonia -> abx as needed zosyn # Thyroid nodule -> r/o nodules -> us thyroid as needed # Dvt ppx lovenox bid Appreciate consultation and asif Shah Subjective HEENT: Denies: no symptoms, eye pain, blurred vision, tearing, double vision, ear pain, ear discharge, nose pain, nose congestion, throat pain, throat swelling, mouth pain, mouth swelling, other Cardiovascular: Denies: no symptoms, chest pain, edema, irregular heart rate, lightheadedness, palpitations, syncope, other Respiratory: Denies: no symptoms, cough, shortness of breath, SOB with excertion, SOB at rest, sputum, wheezing, other Gastrointestinal/Abdominal: Denies: no symptoms, abdomen distended, abdominal pain, black stools, tarry stools, blood in stool, constipated, diarrhea, difficulty swallowing, nausea, poor appetite, poor fluid intake, rectal bleeding, vomiting, other Endocrine: Denies: no symptoms, excessive sweating, flushing, intolerance to cold, intolerance to heat, increased hunger, increased thirst, increased urine, unexplained weight gain, unexplained weight loss, other Hematologic/Lymphatic: Denies: no symptoms, anemia, easy bleeding, easy bru ising, adenopathy, other Allergies: Coded Allergies: No Known Allergies (Unverified , 04/08/19) Subjective 2/9 on nc, with back pain, on ivf, labs are noted, downtrending hgb 2/10 zosyn noted, being rule out for covid, meds reviewed 03/29 labs reviewed, with 2lnc, comfortable, able to converse 03/30 meds noted, no bleeding, dw rn, coughing still, abx 04/01 labs are noted, no bleeding, meds reviewed, on 1l nc, on abx 04/02 on nc, fluids, no bleeding, cbc and bmp ordered for am Objective Objective Current Medications Medications (Trade) Dose Ordered Sig/Magda Route PRN Reason Start Time Stop Time Status Last Admin Dose Admin Acetaminophen (Tylenol) 650 mg Q6H PRN ORAL Mild Pain/Fever 100.5 F 03/26/20 00:00 04/25/20 00:00 04/01/20 20:12 Acetaminophen/ Hydrocodone Bitart ([place] 5/325) 1 tab Q6H PRN ORAL For Pain 4-10 03/26/20 13:45 04/02/20 13:44 03/30/20 21:18 Bisacodyl (Dulcolax) 10 mg DAILYPRN PRN RECTAL Constipation 03/26/20 09:15 06/24/20 09:14 Dextrose/Sodium Chloride 1,000 ml @ 60 mls/hr [id number] IV 03/26/20 08:15 04/25/20 08:14 04/01/20 15:51 Docusate Sodium (Colace) 100 mg TWICE A DAY ORAL 03/26/20 10:00 04/25/20 09:59 04/01/20 17:00 Enoxaparin Sodium (Lovenox) 60 mg EVERY 12 HOURS SUBQ 03/26/20 09:00 06/24/20 08:59 04/01/20 20:13 Guaifenesin/ Dextromethorphan (Robitussin DM Syrup) 15 ml Q6H PRN ORAL For Cough 03/26/20 03:00 06/24/20 02:59 04/01/20 23:53 Ibuprofen (Motrin) 600 mg Q8H PRN ORAL For Pain 03/26/20 00:00 04/25/20 00:00 04/01/20 16:58 Magnesium Hydroxide (Mom) 30 ml DAILYPRN PRN ORAL Constipation 03/26/20 09:15 04/25/20 09:14 03/26/20 16:27 Midodrine (Pro-Amatine) 5 mg THREE TIMES A DAY ORAL 03/26/20 13:00 06/24/20 12:59 04/01/20 17:00 Piperacillin Sod/ Tazobactam Sod 3.375 gm/Sodium Chloride 110 ml @ 27.5 mls/hr Q8H IVPB 03/27/20 10:00 04/03/20 09:59 04/02/20 01:38 Warfarin Sodium (Coumadin per pharmacy) 1 ea DAILY PRN MISC Per rx protocol 03/30/20 11:00 04/29/20 10:59 Zolpidem Tartrate (Ambien) 5 mg HSPRN PRN ORAL Insomnia 03/30/20 21:00 04/06/20 20:59 Last 24 Hour Vital Signs Date Time Temp Pulse Resp B/P (MAP) Pulse Ox O2 Delivery O2 Flow Rate FiO2 04/02/20 04:00 103 04/02/20 04:00 98.8 90 18 119/58 (78) 96 04/02/20 00:00 80 04/02/20 00:00 99.3 87 18 126/64 (84) 98 04/01/20 21:00 Nasal Cannula 1.0 04/01/20 20:42 100.1 04/01/20 20:00 100.9 88 20 132/61 (84) 94 04/01/20 20:00 85 04/01/20 17:28 98.1 04/01/20 16:00 89 04/01/20 15:25 98.1 89 18 100/54 (69) 98 04/01/20 12:00 97.9 75 18 98/60 (73) 96 04/01/20 12:00 75 04/01/20 09:00 Nasal Cannula 1.0 04/01/20 08:38 99.3 04/01/20 08:00 98 04/01/20 07:53 99.3 85 18 122/60 (80) 98 04/01/20 04:00 80 04/01/20 04:00 99.9 80 18 119/66 (83) 98 04/01/20 00:00 99.0 85 18 111/62 (78) 98 04/01/20 00:00 76 03/31/20 21:00 Nasal Cannula 1.5 03/31/20 20:00 98.2 104 18 133/64 (87) 92 03/31/20 20:00 117 03/31/20 18:00 98.1 03/31/20 16:00 88 03/31/20 15:54 98.1 82 16 111/48 (69) 95 03/31/20 12:00 106 03/31/20 12:00 99.9 87 16 102/52 (69) 98 03/31/20 09:00 Nasal Cannula 2.0 03/31/20 08:00 102 03/31/20 08:00 99.3 96 16 118/56 (76) 94 Intake and Output 04/01/20 04/02/20 19:00 07:00 Intake Total 1187.5 ml Balance 1187.5 ml Intake Oral 510 ml IV Total 677.5 ml # Voids 4 # Bowel Movements 2 Labs Test 03/30/20 07:24 03/30/20 12:02 03/31/20 05:50 04/01/20 07:20 White Blood Count 14.3 K/UL (4.8-10.8) 11.8 K/UL (4.8-10.8) Red Blood Count 4.01 M/UL (4.20-5.40) 3.91 M/UL (4.20-5.40) Hemoglobin 11.2 G/DL (12.0-16.0) 10.6 G/DL (12.0-16.0) Hematocrit 34.3 % (37.0-47.0) 33.4 % (37.0-47.0) Mean Corpuscular Volume 86 FL (80-99) 85 FL (80-99) Mean Corpuscular Hemoglobin 28.0 PG (27.0-31.0) 27.2 PG (27.0-31.0) Mean Corpuscular Hemoglobin Concent 32.7 G/DL (32.0-36.0) 31.8 G/DL (32.0-36.0) Red Cell Distribution Width 12.6 % (11.6-14.8) 12.5 % (11.6-14.8) Platelet Count 380 K/UL (150-450) 380 K/UL (150-450) Mean Platelet Volume 7.2 FL (6.5-10.1) 6.7 FL (6.5-10.1) Neutrophils (%) (Auto) 75.6 % (45.0-75.0) 73.7 % (45.0-75.0) Lymphocytes (%) (Auto) 14.2 % (20.0-45.0) 14.6 % (20.0-45.0) Monocytes (%) (Auto) 8.3 % (1.0-10.0) 8.3 % (1.0-10.0) Eosinophils (%) (Auto) 0.8 % (0.0-3.0) 2.0 % (0.0-3.0) Basophils (%) (Auto) 1.0 % (0.0-2.0) 1.4 % (0.0-2.0) Sodium Level 140 MMOL/L (136-145) 141 MMOL/L (136-145) Potassium Level 3.2 MMOL/L (3.5-5.1) 3.4 MMOL/L (3.5-5.1) Chloride Level 103 MMOL/L (98-107) 103 MMOL/L (98-107) Carbon Dioxide Level 30 MMOL/L (21-32) 31 MMOL/L (21-32) Anion Gap 7 mmol/L (5-15) 7 mmol/L (5-15) Blood Urea Nitrogen 5 mg/dL (7-18) 4 mg/dL (7-18) Creatinine 0.7 MG/DL (0.55-1.30) 0.7 MG/DL (0.55-1.30) Estimat Glomerular Filtration Rate > 60 mL/min (>60) > 60 mL/min (>60) Glucose Level 133 MG/DL (74-106) 117 MG/DL (74-106) Calcium Level 8.9 MG/DL (8.5-10.1) 9.1 MG/DL (8.5-10.1) Prothrombin Time 12.2 SEC (9.30-11.50) 11.9 SEC (9.30-11.50) 14.6 SEC (9.30-11.50) Prothromb Time International Ratio 1.1 (0.9-1.1) 1.1 (0.9-1.1) 1.4 (0.9-1.1) Height (Feet): 5 Height (Inches): 4.00 Weight (Pounds): 145 Objective Physical Exam General: Awake and alert, no acute distress, mild fever, anxious appearing HEENT: NC/AT. EOMI. dry mucous membranes. Cardiovascular: Tachycardic. S1 and S2 normal. No murmur appreciated Resp: Normal work of breathing. No cough or wheezing during exam. ++crackles bilaterally. Abdomen: Abdomen is soft, nondistended. Nontender Skin: Intact. No abrasions, laceration or rash over the exposed skin MSK: Normal tone and bulk. Moving all extremities. Neuro: Awake and alert. Mentating appropriately. Kenny Aldana MD Apr 02, 2020 06:10
[2020-04-02] MEDS: guaiFENesin /DM 10ml syrup ORAL PRN ×2 (06:19→15:56)
--- NOTE | 2020-04-02 07:32 | NUR ---
NURSE HAND-OFF REPORT: Important Events on Shift: Patient has been resting well the whole shift, no complaints of pain nor any signs of distress. Was able to titrate her down to room air. Patient Status: Patient is awake on bed in stable condition. Plan of care endorsed. Diet: Regualr diet. Pending Orders: none Pending Results/Labs:AM lab result Pending MD notification:none Latest Vital Signs: Temperature 98.8 , Pulse 90 , B/P 119 /58 , Respiratory Rate 18 , O2 SAT 96 , Nasal Cannula, O2 Flow Rate 1.0 . Vital Sign Comment: stable EKG Rhythm: Sinus Tachycardia Rhythm change?: N MD Notified?: - MD Response: Latest Duran Fall Score: 35 Fall Risk: Medium Risk Safety Measures: Call light Within Reach, Bed Alarm Zone 1, Side Rails Side Rails x2, Bed position Low and Locked. Fall Precautions: Patient Fall Education Report given to AARON Flynn.
--- NOTE | 2020-04-02 07:38 | NUR ---
NURSE NOTES: pt is in the bed alert and awake. hob in high [place]. respiration even and unlabored on room air. pt c/o back pain, rates her pain to 8/10. norco 5/325 mg ambisinister as prescribed. no acute distress noted. call light place, will continue to monitor.
[2020-04-02] MEDS: HYDROcodone/Acetamin 5/325 tab ORAL PRN (07:44)
[2020-04-02 08:00] VITALS: BP 125/70
--- NOTE | 2020-04-02 08:30 | NUR ---
CASE MANAGEMENT:REVIEW 04/02/20 SI: PNA. PULMONARY EMBOLI. COVID NEGATIVE 98.8 103 90 18 119/58 96% ON 1L/NC PT+20.7 INR+2.0 IS: COUMADIN 2.5MG PO X1 IV ZOSYN Q8HRS IVF@60/HR MIDODRINE PO TID LOVENOX SQ Q12 NORCO PO Q6HRS PRN : TELEMETRY STATUS DCP; FROM HOME PLAN: TEMP OF 100.9 LAST NIGHT ~ CONTINUE TO MONITOR TEMP
--- NOTE | 2020-04-02 08:57 | Infectious Diseases Prog Note ---
Assessment/Plan 69yo F with: Febrile to 100.8 Back pain Pulmonary embolus, acute R/o COVID Satting well on 2L NC Leukocytosis to 16 Lymphopenia 03/25 COVID PCR neg BCx NTD UA neg, UCx mixed jono CTA chest: 1. Right posterior basal segmental pulmonary embolism extending into the subsegmental pulmonary arteries. No evidence of right heart strain. 2. Right lung base airspace opacities likely sequela of ischemia from pulmonary embolism. 3. Left lung base atelectasis. Underlying concomitant infectious process is not definitively excluded. 4. Bilateral thyroid nodules. Flu neg Cr 0.9 Plan: Cont Zosyn #7/7 empiric given ongoing fevers, leukocytosis (though could also all be 2/2 PE) Anticoagulation for PE per primary Trend WBC - improving Trend temp curve, possible 2/2 PE 03/27 SP CTX #2 empiric Monitor CBC/CMP Monitor temp curve, hemodynamics Monitor resp status D/w RN Thank you for this consult. [facility] will continue to follow. Subjective Allergies: Coded Allergies: No Known Allergies (Unverified , 04/08/19) Tmax 100.9, did notice her fever C/o ongoing lower back pain WBC 11 Breathing stable, able to walk to bathroom wo issues and sits up on side of bed Objective Last 24 Hour Vital Signs Date Time Temp Pulse Resp B/P (MAP) Pulse Ox O2 Delivery O2 Flow Rate FiO2 04/02/20 08:14 98.8 04/02/20 08:00 96.8 103 19 125/70 (88) 98 04/02/20 04:00 103 04/02/20 04:00 98.8 90 18 119/58 (78) 96 04/02/20 00:00 80 04/02/20 00:00 99.3 87 18 126/64 (84) 98 04/01/20 21:00 Nasal Cannula 1.0 04/01/20 20:42 100.1 04/01/20 20:00 100.9 88 20 132/61 (84) 94 04/01/20 20:00 85 04/01/20 17:28 98.1 04/01/20 16:00 89 04/01/20 15:25 98.1 89 18 100/54 (69) 98 04/01/20 12:00 97.9 75 18 98/60 (73) 96 04/01/20 12:00 75 04/01/20 09:00 Nasal Cannula 1.0 Height (Feet): 5 Height (Inches): 4.00 Weight (Pounds): 145 Gen: NAD HEENT: NCAT Pulm: BL chest rise on NC, non-labored Abd: Non-distended Ext: No c/c/e Skin: No visible rashes Neuro: Awake, alert, interactive Laboratory Tests Test 04/02/20 07:23 Prothrombin Time 20.7 SEC (9.30-11.50) H Prothromb Time International Ratio 2.0 (0.9-1.1) H Current Medications Medications (Trade) Dose Ordered Sig/Magda Route PRN Reason Start Time Stop Time Status Last Admin Dose Admin Acetaminophen (Tylenol) 650 mg Q6H PRN ORAL Mild Pain/Fever 100.5 F 03/26/20 00:00 04/25/20 00:00 04/01/20 20:12 Acetaminophen/ Hydrocodone Bitart ([place] 5/325) 1 tab Q6H PRN ORAL For Pain 4-10 03/26/20 13:45 04/02/20 13:44 04/02/20 07:44 Bisacodyl (Dulcolax) 10 mg DAILYPRN PRN RECTAL Constipation 03/26/20 09:15 06/24/20 09:14 Dextrose/Sodium Chloride 1,000 ml @ 60 mls/hr [id number] IV 03/26/20 08:15 04/25/20 08:14 04/01/20 15:51 Docusate Sodium (Colace) 100 mg TWICE A DAY ORAL 03/26/20 10:00 04/25/20 09:59 04/01/20 17:00 Enoxaparin Sodium (Lovenox) 60 mg EVERY 12 HOURS SUBQ 03/26/20 09:00 06/24/20 08:59 04/01/20 20:13 Guaifenesin/ Dextromethorphan (Robitussin DM Syrup) 15 ml Q6H PRN ORAL For Cough 03/26/20 03:00 06/24/20 02:59 04/02/20 06:19 Ibuprofen (Motrin) 600 mg Q8H PRN ORAL For Pain 03/26/20 00:00 04/25/20 00:00 04/01/20 16:58 Magnesium Hydroxide (Mom) 30 ml DAILYPRN PRN ORAL Constipation 03/26/20 09:15 04/25/20 09:14 03/26/20 16:27 Midodrine (Pro-Amatine) 5 mg THREE TIMES A DAY ORAL 03/26/20 13:00 06/24/20 12:59 04/01/20 17:00 Piperacillin Sod/ Tazobactam Sod 3.375 gm/Sodium Chloride 110 ml @ 27.5 mls/hr Q8H IVPB 03/27/20 10:00 04/03/20 09:59 04/02/20 01:38 Warfarin Sodium (Coumadin per pharmacy) 1 ea DAILY PRN MISC Per rx protocol 03/30/20 11:00 04/29/20 10:59 Warfarin Sodium (Coumadin) 2.5 mg COUMADIN ORAL 04/02/20 17:00 04/02/20 18:00 Zolpidem Tartrate (Ambien) 5 mg HSPRN PRN ORAL Insomnia 03/30/20 21:00 04/06/20 20:59 Lor Millan M.D. Apr 02, 2020 08:57
[2020-04-02] MEDS: Docusate 100mg cap ORAL SCH ×2 (09:02→17:08)
[2020-04-02] MEDS: Enoxaparin 60mg Inj SUBQ SCH (09:07)
[2020-04-02 09:11] LABS: BASOPHILS % (AUTO) 1.1 % (0.0-2.0); EOSINOPHILS % (AUTO) 2.2 % (0.0-3.0); HEMATOCRIT 34.6 % (37.0-47.0); HEMOGLOBIN 11.1 G/DL (12.0-16.0); LYMPHOCYTES % (AUTO) 15.2 % (20.0-45.0); MEAN CORPUSCULAR VOLUME 86 FL (80-99); NEUTROPHILS % (AUTO) 74.4 % (45.0-75.0); PLATELET COUNT 558 K/UL (150-450); RED BLOOD COUNT 4.02 M/UL (4.20-5.40); RED CELL DISTRIBUTION WIDTH 12.8 % (11.6-14.8); WHITE BLOOD COUNT 11.4 K/UL (4.8-10.8)
--- NOTE | 2020-04-02 10:24 | Pulmonology Progress Note ---
Subjective ROS Limited/Unobtainable: No Interval Events: none major reported per nursing HEENT: Repors: no symptoms Respiratory: Reports: no symptoms Cardiovascular: Reports: no symptoms Gastrointestinal/Abdominal: Reports: no symptoms Musculoskeletal: Reports: pain, other - right mid back pain; better with ibuprofen and [place] Allergies: Coded Allergies: No Known Allergies (Unverified , 04/08/19) All Systems: reviewed and negative except above Objective Last 24 Hour Vital Signs Date Time Temp Pulse Resp B/P (MAP) Pulse Ox O2 Delivery O2 Flow Rate FiO2 04/02/20 08:14 98.8 04/02/20 08:00 96.8 103 19 125/70 (88) 98 04/02/20 04:00 103 04/02/20 04:00 98.8 90 18 119/58 (78) 96 04/02/20 00:00 80 04/02/20 00:00 99.3 87 18 126/64 (84) 98 04/01/20 21:00 Nasal Cannula 1.0 04/01/20 20:42 100.1 04/01/20 20:00 100.9 88 20 132/61 (84) 94 04/01/20 20:00 85 04/01/20 17:28 98.1 04/01/20 16:00 89 04/01/20 15:25 98.1 89 18 100/54 (69) 98 04/01/20 12:00 97.9 75 18 98/60 (73) 96 04/01/20 12:00 75 Intake and Output 04/01/20 04/02/20 19:00 07:00 Intake Total 1187.5 ml 600 ml Balance 1187.5 ml 600 ml Intake Oral 510 ml 600 ml IV Total 677.5 ml # Voids 4 4 # Bowel Movements 2 General Appearance: no acute distress HEENT: atraumatic Respiratory: crackles/rales Cardiovascular: regular rhythm, tachycardia Abdomen: soft, non tender Laboratory Tests 04/02/20 07:23: White Blood Count 11.4H, Red Blood Count 4.02L, Hemoglobin 11.1L, Hematocrit 34.6L, Mean Corpuscular Volume 86, Mean Corpuscular Hemoglobin 27.6, Mean Corpuscular Hemoglobin Concent 32.1, Red Cell Distribution Width 12.8, Platelet Count 558H, Mean Platelet Volume 6.9, Neutrophils (%) (Auto) 74.4, Lymphocytes (%) (Auto) 15.2L, Monocytes (%) (Auto) 7.0, Eosinophils (%) (Auto) 2.2, Basophils (%) (Auto) 1.1, Prothrombin Time 20.7H, Prothromb Time International Ratio 2.0H Current Medications Medications (Trade) Dose Ordered Sig/Magda Route PRN Reason Start Time Stop Time Status Last Admin Dose Admin Acetaminophen (Tylenol) 650 mg Q6H PRN ORAL Mild Pain/Fever 100.5 F 03/26/20 00:00 04/25/20 00:00 04/01/20 20:12 Acetaminophen/ Hydrocodone Bitart ([place] 5/325) 1 tab Q6H PRN ORAL For Pain 4-10 03/26/20 13:45 04/02/20 13:44 04/02/20 07:44 Bisacodyl (Dulcolax) 10 mg DAILYPRN PRN RECTAL Constipation 03/26/20 09:15 06/24/20 09:14 Dextrose/Sodium Chloride 1,000 ml @ 60 mls/hr [id number] IV 03/26/20 08:15 04/25/20 08:14 04/01/20 15:51 Docusate Sodium (Colace) 100 mg TWICE A DAY ORAL 03/26/20 10:00 04/25/20 09:59 04/02/20 09:02 Enoxaparin Sodium (Lovenox) 60 mg EVERY 12 HOURS SUBQ 03/26/20 09:00 06/24/20 08:59 04/02/20 09:07 Guaifenesin/ Dextromethorphan (Robitussin DM Syrup) 15 ml Q6H PRN ORAL For Cough 03/26/20 03:00 06/24/20 02:59 04/02/20 06:19 Ibuprofen (Motrin) 600 mg Q8H PRN ORAL For Pain 03/26/20 00:00 04/25/20 00:00 04/01/20 16:58 Magnesium Hydroxide (Mom) 30 ml DAILYPRN PRN ORAL Constipation 03/26/20 09:15 04/25/20 09:14 03/26/20 16:27 Midodrine (Pro-Amatine) 5 mg THREE TIMES A DAY ORAL 03/26/20 13:00 06/24/20 12:59 04/02/20 09:05 Piperacillin Sod/ Tazobactam Sod 3.375 gm/Sodium Chloride 110 ml @ 27.5 mls/hr Q8H IVPB 03/27/20 10:00 04/03/20 09:59 04/02/20 09:05 Warfarin Sodium (Coumadin per pharmacy) 1 ea DAILY PRN MISC Per rx protocol 03/30/20 11:00 04/29/20 10:59 Warfarin Sodium (Coumadin) 2.5 mg COUMADIN ORAL 04/02/20 17:00 04/02/20 18:00 Zolpidem Tartrate (Ambien) 5 mg HSPRN PRN ORAL Insomnia 03/30/20 21:00 04/06/20 20:59 Assessment/Plan Assessment/Plan 1. ?Pneumonia with fever and leukocytosis -On Abx empirically per ID - fever and leukocytosis improving 2. Normoxemia -No indication for steroids at this time given good saturation on room air/l ow flow oxygen - Currently on room air saturating at 95% - provide supplemental oxygen as needed 3. Pulmonary embolus, acute -Right posterior basal segmental PE extending into the subsegmental pulmonary arteries -Continue full dose Lovenox -Venous duplex US lower legs negative -Hypercoag work-up not needed due to age per heme onc - on Coumadin; pt can be discharged when INR >1.8 5. Elevated D-dimer -Duplex legs negative -On Lovenox for DVT ppx 6. Thyroid nodules -Hematology oncology following 7. COVID-19 PCR negative (03/25) - now off isolation Attempted to reach Dahlia (daughter) [phone] for an update per her request but did not order picker/assembler. No voice mail set up. Will try again later. -> Long discussion with daughter, Dahlia who agrees with the plan (03/31) The care for this patient was discussed with my supervising physician. Time spent for this case was approximately 31 minutes. Denzel Villalta Apr 02, 2020 10:24
[2020-04-02 12:00] VITALS: BP 123/80
--- NOTE | 2020-04-02 14:39 | Cardiac Electrophysiology PN ---
Assessment/Plan Assessment/Plan 1. SOB due to acute Right posterior basal segmental PE on Lovenox and Coumadin. EF 55%. Ruled out for PA INR today is 2 2. PNA with WBC 18K on Abx per Dr Alonzo. WBC 11K now 3. Low K replaced 4. Low BP. On Midodrine 5 tid. DW RN Subjective Subjective No CP or SOB. On Lovenox and Coumadin for PE. EF 55%. On RA. Covid is negative. INR today is 2 Objective Last 24 Hour Vital Signs Date Time Temp Pulse Resp B/P (MAP) Pulse Ox O2 Delivery O2 Flow Rate FiO2 04/02/20 12:00 107 04/02/20 12:00 96.4 104 19 123/80 (94) 96 04/02/20 09:00 Nasal Cannula 1.0 04/02/20 08:14 98.8 04/02/20 08:00 101 04/02/20 08:00 96.8 103 19 125/70 (88) 98 04/02/20 04:00 103 04/02/20 04:00 98.8 90 18 119/58 (78) 96 04/02/20 00:00 80 04/02/20 00:00 99.3 87 18 126/64 (84) 98 04/01/20 21:00 Nasal Cannula 1.0 04/01/20 20:42 100.1 04/01/20 20:00 100.9 88 20 132/61 (84) 94 04/01/20 20:00 85 04/01/20 17:28 98.1 04/01/20 16:00 89 04/01/20 15:25 98.1 89 18 100/54 (69) 98 Intake and Output 04/01/20 04/02/20 19:00 07:00 Intake Total 1187.5 ml 600 ml Balance 1187.5 ml 600 ml Intake Oral 510 ml 600 ml IV Total 677.5 ml # Voids 4 4 # Bowel Movements 2 Laboratory Tests Test 04/02/20 07:23 White Blood Count 11.4 K/UL (4.8-10.8) H Red Blood Count 4.02 M/UL (4.20-5.40) L Hemoglobin 11.1 G/DL (12.0-16.0) L Hematocrit 34.6 % (37.0-47.0) L Mean Corpuscular Volume 86 FL (80-99) Mean Corpuscular Hemoglobin 27.6 PG (27.0-31.0) Mean Corpuscular Hemoglobin Concent 32.1 G/DL (32.0-36.0) Red Cell Distribution Width 12.8 % (11.6-14.8) Platelet Count 558 K/UL (150-450) H Mean Platelet Volume 6.9 FL (6.5-10.1) Neutrophils (%) (Auto) 74.4 % (45.0-75.0) Lymphocytes (%) (Auto) 15.2 % (20.0-45.0) L Monocytes (%) (Auto) 7.0 % (1.0-10.0) Eosinophils (%) (Auto) 2.2 % (0.0-3.0) Basophils (%) (Auto) 1.1 % (0.0-2.0) Prothrombin Time 20.7 SEC (9.30-11.50) H Prothromb Time International Ratio 2.0 (0.9-1.1) H Objective HEENT: No JVD CARDIOVASCULAR: RRR, No murmur. LUNGS: Poor air exchange. ABDOMEN: Bowel sounds distant. EXTREMITIES: No cyanosis, clubbing, or edema. NEUROLOGIC: moves all extremities, slightly weak. David Meek MD Apr 02, 2020 14:39
[2020-04-02 16:00] VITALS: BP 127/77
[2020-04-02] MEDS ORDERED: Warfarin Sodium 2.5mg ORAL SCH (17:00)
--- NOTE | 2020-04-02 19:40 | NUR ---
NURSE NOTES: Initial rounding done. pt on the bed, resting at this time. No sob noted. IV to RFA intact/patent. Denies pain, appears calm and cooperative. no further needs noted at this time, instructed to call anytime for assistance. Call light within easy reach.
--- NOTE | 2020-04-02 19:47 | NUR ---
NURSE HAND-OFF REPORT: Important Events on Shift:STABLE Patient Status: STABLE Diet: Pending Orders: Pending Results/Labs: Pending MD notification: Latest Vital Signs: Temperature 97.7 , Pulse 105 , B/P 127 /77 , Respiratory Rate 20 , O2 SAT 98 , Nasal Cannula, O2 Flow Rate 1.0 . Vital Sign Comment: EKG Rhythm: Sinus Tachycardia Rhythm change?: N MD Notified?: - MD Response: Latest Duran Fall Score: 35 Fall Risk: Medium Risk Safety Measures: Call light Within Reach, Bed Alarm Zone 1, Side Rails Side Rails x2, Bed position Low and Locked. Fall Precautions: Patient Fall Education Report given to NUNU.
[2020-04-02 20:00] VITALS: BP 123/66
[2020-04-02] MEDS: D5 1/2NS 1,000 ML IV SCH (23:24)
[2020-04-03] VITALS: BP 116/63
[2020-04-03] MEDS: Piperacillin/Tazobactam 3.375 GM in NS 110 ML IVPB SCH (01:27)
[2020-04-03] MEDS: guaiFENesin /DM 10ml syrup ORAL PRN ×3 (01:27→20:52)
[2020-04-03 04:00] VITALS: BP 126/67
--- NOTE | 2020-04-03 06:21 | Hematology/Onc Progress Note ---
Assessment/Plan Assessment/Plan Assessment and Recs # Right posterior basal segmental pulmonary embolism extending into the subsegmental pulmonary arteries. No evidence of right heart strain. Right lung base airspace opacities likely sequela of ischemia from pulmonary embolism. --> anticoagulation has been started lovenox bid --> r/o bleeding --> venous duplex lower legs--> NEG --> hypercoag w/u not needed due to age # Elevated ddimer r/o infection -> does have a pe --> on coumadin # Anemia of chronic disease --> hgb 10->10 --> no bleeding at this time --> ferritin is elev # Leukocytosis due to reactive process --> abx as needed zosyn --> smear is noted --> on abx --> r/o covid --> wbc 19-->16 # Thrombocytosis, reactive due to Pneumonia -> abx as needed zosyn # Thyroid nodule -> r/o nodules -> us thyroid as needed # Dvt ppx coumadin po --> inr goal 203 Appreciate consultation and asif Rn Subjective Constitutional: Denies: no symptoms, chills, fever, malaise, weakness, other HEENT: Denies: no symptoms, eye pain, blurred vision, tearing, double vision, ear pain, ear discharge, nose pain, nose congestion, throat pain, throat swelling, mouth pain, mouth swelling, other Cardiovascular: Denies: no symptoms, chest pain, edema, irregular heart rate, lightheadedness, palpitations, syncope, other Genitourinary: Denies: no symptoms, burning, discharge, frequency, flank pain, hematuria, incontinence, pain, urgency, other Neurologic/Psychiatric: Denies: no symptoms, anxiety, depressed, emotional problems, headache, numbness, paresthesia, pre-existing deficit, seizure, tingling, tremors, weakness, other Endocrine: Denies: no symptoms, excessive sweating, flushing, intolerance to cold, intolerance to heat, increased hunger, increased thirst, increased urine, unexplained weight gain, unexplained weight loss, other Hematologic/Lymphatic: Denies: no symptoms, anemia, easy bleeding, easy bruising, adenopathy, other Allergies: Coded Allergies: No Known Allergies (Unverified , 04/08/19) Subjective 03/27 on nc, with back pain, on ivf, labs are noted, downtrending hgb 03/28 zosyn noted, being rule out for covid, meds reviewed 03/29 labs reviewed, with 2lnc, comfortable, able to converse 03/30 meds noted, no bleeding, dw rn, coughing still, abx 04/01 labs are noted, no bleeding, meds reviewed, on 1l nc, on abx 04/02 on nc, fluids, no bleeding, cbc and bmp ordered for am 04/03 nc, calm, cooperative, no bleeding or chills, labs reviewed Objective Objective Current Medications Medications (Trade) Dose Ordered Sig/Magda Route PRN Reason Start Time Stop Time Status Last Admin Dose Admin Acetaminophen (Tylenol) 650 mg Q6H PRN ORAL Mild Pain/Fever 100.5 F 03/26/20 00:00 04/25/20 00:00 04/01/20 20:12 Bisacodyl (Dulcolax) 10 mg DAILYPRN PRN RECTAL Constipation 03/26/20 09:15 06/24/20 09:14 Dextrose/Sodium Chloride 1,000 ml @ 60 mls/hr [id number] IV 03/26/20 08:15 04/25/20 08:14 04/02/20 23:24 Docusate Sodium (Colace) 100 mg TWICE A DAY ORAL 03/26/20 10:00 04/25/20 09:59 04/02/20 17:08 Guaifenesin/ Dextromethorphan (Robitussin DM Syrup) 15 ml Q6H PRN ORAL For Cough 03/26/20 03:00 06/24/20 02:59 04/03/20 01:27 Ibuprofen (Motrin) 600 mg Q8H PRN ORAL For Pain 03/26/20 00:00 04/25/20 00:00 04/01/20 16:58 Magnesium Hydroxide (Mom) 30 ml DAILYPRN PRN ORAL Constipation 03/26/20 09:15 04/25/20 09:14 03/26/20 16:27 Midodrine (Pro-Amatine) 5 mg THREE TIMES A DAY ORAL 03/26/20 13:00 06/24/20 12:59 04/02/20 17:08 Piperacillin Sod/ Tazobactam Sod 3.375 gm/Sodium Chloride 110 ml @ 27.5 mls/hr Q8H IVPB 03/27/20 10:00 04/03/20 09:59 04/03/20 01:27 Warfarin Sodium (Coumadin per pharmacy) 1 ea DAILY PRN MISC Per rx protocol 03/30/20 11:00 04/29/20 10:59 Zolpidem Tartrate (Ambien) 5 mg HSPRN PRN ORAL Insomnia 03/30/20 21:00 04/06/20 20:59 Last 24 Hour Vital Signs Date Time Temp Pulse Resp B/P (MAP) Pulse Ox O2 Delivery O2 Flow Rate FiO2 04/03/20 04:00 97.8 89 17 126/67 (86) 95 04/03/20 04:00 83 04/03/20 00:00 98.2 88 19 116/63 (80) 94 04/03/20 00:00 85 04/02/20 21:00 Nasal Cannula 1.0 04/02/20 20:00 98.2 113 16 123/66 (85) 94 04/02/20 20:00 118 04/02/20 16:00 125 04/02/20 16:00 97.7 105 20 127/77 (94) 98 04/02/20 12:00 107 04/02/20 12:00 96.4 104 19 123/80 (94) 96 04/02/20 09:00 Nasal Cannula 1.0 04/02/20 08:14 98.8 04/02/20 08:00 101 04/02/20 08:00 96.8 103 19 125/70 (88) 98 04/02/20 04:00 103 04/02/20 04:00 98.8 90 18 119/58 (78) 96 04/02/20 00:00 80 04/02/20 00:00 99.3 87 18 126/64 (84) 98 04/01/20 21:00 Nasal Cannula 1.0 04/01/20 20:42 100.1 04/01/20 20:00 100.9 88 20 132/61 (84) 94 04/01/20 20:00 85 04/01/20 17:28 98.1 04/01/20 16:00 89 04/01/20 15:25 98.1 89 18 100/54 (69) 98 04/01/20 12:00 97.9 75 18 98/60 (73) 96 04/01/20 12:00 75 04/01/20 09:00 Nasal Cannula 1.0 04/01/20 08:38 99.3 04/01/20 08:00 98 04/01/20 07:53 99.3 85 18 122/60 (80) 98 Intake and Output 04/02/20 04/03/20 19:00 07:00 Intake Total 650 ml 800 ml Balance 650 ml 800 ml Intake Oral 650 ml IV Total 540 ml Other 260 ml # Voids 4 2 # Bowel Movements 1 Labs Test 04/01/20 07:20 04/02/20 07:23 Prothrombin Time 14.6 SEC (9.30-11.50) 20.7 SEC (9.30-11.50) Prothromb Time International Ratio 1.4 (0.9-1.1) 2.0 (0.9-1.1) White Blood Count 11.4 K/UL (4.8-10.8) Red Blood Count 4.02 M/UL (4.20-5.40) Hemoglobin 11.1 G/DL (12.0-16.0) Hematocrit 34.6 % (37.0-47.0) Mean Corpuscular Volume 86 FL (80-99) Mean Corpuscular Hemoglobin 27.6 PG (27.0-31.0) Mean Corpuscular Hemoglobin Concent 32.1 G/DL (32.0-36.0) Red Cell Distribution Width 12.8 % (11.6-14.8) Platelet Count 558 K/UL (150-450) Mean Platelet Volume 6.9 FL (6.5-10.1) Neutrophils (%) (Auto) 74.4 % (45.0-75.0) Lymphocytes (%) (Auto) 15.2 % (20.0-45.0) Monocytes (%) (Auto) 7.0 % (1.0-10.0) Eosinophils (%) (Auto) 2.2 % (0.0-3.0) Basophils (%) (Auto) 1.1 % (0.0-2.0) Height (Feet): 5 Height (Inches): 4.00 Weight (Pounds): 145 Objective Physical Exam General: Awake and alert, no acute distress, mild fever, anxious appearing HEENT: NC/AT. EOMI. dry mucous membranes. Cardiovascular: Tachycardic. S1 and S2 normal. No murmur appreciated Resp: Normal work of breathing. No cough or wheezing during exam. ++crackles bilaterally. Abdomen: Abdomen is soft, nondistended. Nontender Skin: Intact. No abrasions, laceration or rash over the exposed skin MSK: Normal tone and bulk. Moving all extremities. Neuro: Awake and alert. Mentating appropriately. Kenny Aldana MD Apr 03, 2020 06:21
[2020-04-03 07:19] LABS: BASOPHILS % (AUTO) 1.7 % (0.0-2.0); EOSINOPHILS % (AUTO) 1.6 % (0.0-3.0); HEMATOCRIT 31.9 % (37.0-47.0); HEMOGLOBIN 10.6 G/DL (12.0-16.0); LYMPHOCYTES % (AUTO) 15.4 % (20.0-45.0); MEAN CORPUSCULAR VOLUME 85 FL (80-99); MONOCYTES % (AUTO) 9.1 % (1.0-10.0); NEUTROPHILS % (AUTO) 72.2 % (45.0-75.0); PLATELET COUNT 578 K/UL (150-450); RED BLOOD COUNT 3.76 M/UL (4.20-5.40); RED CELL DISTRIBUTION WIDTH 12.9 % (11.6-14.8)
--- NOTE | 2020-04-03 07:20 | NUR ---
NURSE HAND-OFF REPORT: Important Events on Shift:NONE Patient Status: Diet: Pending Orders: Pending Results/Labs: Pending MD notification: Latest Vital Signs: Temperature 97.5 , Pulse 109 , B/P 123 /73 , Respiratory Rate 20 , O2 SAT 95 , Nasal Cannula, O2 Flow Rate 1.0 . Vital Sign Comment: EKG Rhythm: Sinus Rhythm Rhythm change?: N MD Notified?: N/A MD Response: Latest Duran Fall Score: 35 Fall Risk: Medium Risk Safety Measures: Call light Within Reach, Bed Alarm Zone 1, Side Rails Side Rails x2, Bed position Low and Locked. Fall Precautions: Patient Fall Education Report given to .
--- NOTE | 2020-04-03 07:35 | NUR ---
NURSE NOTES: Receive AM report. pt is eating breakfast. no coughing and aspiration noted. HOB in high lozada. respiration is even and unlabored on room air. no acute distress noted at this time. call light within reach.
[2020-04-03 07:50] LABS: INR 2.8 (0.9-1.1)
[2020-04-03 08:00] VITALS: BP 123/73
[2020-04-03 08:08] LABS: ANION GAP 8 mmol/L (5-15); BLOOD UREA NITROGEN 3 mg/dL (7-18); CALCIUM 9.1 MG/DL (8.5-10.1); CARBON DIOXIDE 28 MMOL/L (21-32); CHLORIDE 103 MMOL/L (98-107); CREATININE 0.6 MG/DL (0.55-1.30); POTASSIUM 3.2 MMOL/L (3.5-5.1); SODIUM 139 MMOL/L (136-145)
--- NOTE | 2020-04-03 08:13 | Infectious Diseases Prog Note ---
Assessment/Plan 69yo F with: Febrile to 100.8 Back pain Pulmonary embolus, acute R/o COVID Satting well on 2L NC Leukocytosis to 16 Lymphopenia / COVID PCR neg BCx NTD UA neg, UCx mixed jono CTA chest: 1. Right posterior basal segmental pulmonary embolism extending into the subsegmental pulmonary arteries. No evidence of right heart strain. 2. Right lung base airspace opacities likely sequela of ischemia from pulmonary embolism. 3. Left lung base atelectasis. Underlying concomitant infectious process is not definitively excluded. 4. Bilateral thyroid nodules. Flu neg Cr 0.9 Plan: Stop Zosyn #7/7 empiric given ongoing fevers, leukocytosis (though could also all be 2/2 PE) Monitor off abx Ok to d/c from ID standpoint off abx Anticoagulation for PE per primary Trend WBC - improving Trend temp curve, possible 2/2 PE 04/03 SP Zosyn #7 for pna, empiric 03/27 SP CTX #2 empiric Monitor CBC/CMP Monitor temp curve, hemodynamics Monitor resp status D/w RN Thank you for this consult. [facility] will continue to follow. Subjective Allergies: Coded Allergies: No Known Allergies (Unverified , 04/08/19) AF NAD on RA WBC 12, stable Reports some coughing Getting up and walking around, doing well Objective Last 24 Hour Vital Signs Date Time Temp Pulse Resp B/P (MAP) Pulse Ox O2 Delivery O2 Flow Rate FiO2 04/03/20 04:00 97.8 89 17 126/67 (86) 95 04/03/20 04:00 83 04/03/20 00:00 98.2 88 19 116/63 (80) 94 04/03/20 00:00 85 04/02/20 21:00 Nasal Cannula 1.0 04/02/20 20:00 98.2 113 16 123/66 (85) 94 04/02/20 20:00 118 04/02/20 16:00 125 04/02/20 16:00 97.7 105 20 127/77 (94) 98 04/02/20 12:00 107 04/02/20 12:00 96.4 104 19 123/80 (94) 96 04/02/20 09:00 Nasal Cannula 1.0 04/02/20 08:14 98.8 Height (Feet): 5 Height (Inches): 4.00 Weight (Pounds): 145 Gen: NAD HEENT: NCAT Pulm: BL chest rise on NC, non-labored Abd: Non-distended Ext: No c/c/e Skin: No visible rashes Neuro: Awake, alert, interactive Laboratory Tests Test 04/03/20 06:49 White Blood Count 12.0 K/UL (4.8-10.8) H Red Blood Count 3.76 M/UL (4.20-5.40) L Hemoglobin 10.6 G/DL (12.0-16.0) L Hematocrit 31.9 % (37.0-47.0) L Mean Corpuscular Volume 85 FL (80-99) Mean Corpuscular Hemoglobin 28.1 PG (27.0-31.0) Mean Corpuscular Hemoglobin Concent 33.0 G/DL (32.0-36.0) Red Cell Distribution Width 12.9 % (11.6-14.8) Platelet Count 578 K/UL (150-450) H Mean Platelet Volume 6.8 FL (6.5-10.1) Neutrophils (%) (Auto) 72.2 % (45.0-75.0) Lymphocytes (%) (Auto) 15.4 % (20.0-45.0) L Monocytes (%) (Auto) 9.1 % (1.0-10.0) Eosinophils (%) (Auto) 1.6 % (0.0-3.0) Basophils (%) (Auto) 1.7 % (0.0-2.0) Prothrombin Time 28.8 SEC (9.30-11.50) H Prothromb Time International Ratio 2.8 (0.9-1.1) H Sodium Level 139 MMOL/L (136-145) Potassium Level 3.2 MMOL/L (3.5-5.1) L Chloride Level 103 MMOL/L (98-107) Carbon Dioxide Level 28 MMOL/L (21-32) Anion Gap 8 mmol/L (5-15) Blood Urea Nitrogen 3 mg/dL (7-18) L Creatinine 0.6 MG/DL (0.55-1.30) Estimat Glomerular Filtration Rate > 60 mL/min (>60) Glucose Level 124 MG/DL (74-106) H Calcium Level 9.1 MG/DL (8.5-10.1) Current Medications Medications (Trade) Dose Ordered Sig/Magda Route PRN Reason Start Time Stop Time Status Last Admin Dose Admin Acetaminophen (Tylenol) 650 mg Q6H PRN ORAL Mild Pain/Fever 100.5 F 03/26/20 00:00 04/25/20 00:00 04/01/20 20:12 Bisacodyl (Dulcolax) 10 mg DAILYPRN PRN RECTAL Constipation 03/26/20 09:15 06/24/20 09:14 Dextrose/Sodium Chloride 1,000 ml @ 60 mls/hr [id number] IV 03/26/20 08:15 04/25/20 08:14 04/02/20 23:24 Docusate Sodium (Colace) 100 mg TWICE A DAY ORAL 03/26/20 10:00 04/25/20 09:59 04/02/20 17:08 Guaifenesin/ Dextromethorphan (Robitussin DM Syrup) 15 ml Q6H PRN ORAL For Cough 03/26/20 03:00 06/24/20 02:59 04/03/20 01:27 Ibuprofen (Motrin) 600 mg Q8H PRN ORAL For Pain 03/26/20 00:00 04/25/20 00:00 04/01/20 16:58 Magnesium Hydroxide (Mom) 30 ml DAILYPRN PRN ORAL Constipation 03/26/20 09:15 04/25/20 09:14 03/26/20 16:27 Midodrine (Pro-Amatine) 5 mg THREE TIMES A DAY ORAL 03/26/20 13:00 06/24/20 12:59 04/02/20 17:08 Piperacillin Sod/ Tazobactam Sod 3.375 gm/Sodium Chloride 110 ml @ 27.5 mls/hr Q8H IVPB 03/27/20 10:00 04/03/20 09:59 04/03/20 01:27 Warfarin Sodium (Coumadin per pharmacy) 1 ea DAILY PRN MISC Per rx protocol 03/30/20 11:00 04/29/20 10:59 Warfarin Sodium (Warfarin Sod) 1 mg COUMADIN ORAL 04/03/20 17:00 04/03/20 19:00 Zolpidem Tartrate (Ambien) 5 mg HSPRN PRN ORAL Insomnia 03/30/20 21:00 04/06/20 20:59 Lor Millan M.D. Apr 03, 2020 08:13
--- NOTE | 2020-04-03 08:45 | NUR ---
CASE MANAGEMENT:REVIEW 04/02/20 SI: PNA. PULMONARY EMBOLI. BILATERAL THYROID NODULES 97.5 109 20 123/73 95% ON 1L/NC K-3.2 PT+28.8 INR+2.8 IS: COUMADIN 1 MG PO X1 IV ZOSYN Q8HRS IVF@60/HR MIDODRINE PO TID LOVENOX SQ Q12 NORCO PO Q6HRS PRN : TELEMETRY STATUS DCP; FROM HOME PLAN: AFEBRILE BUT WBC'S ARE RISING
[2020-04-03] MEDS: Docusate 100mg cap ORAL SCH ×2 (08:53→17:29)
--- NOTE | 2020-04-03 09:16 | Pulmonology Progress Note ---
Subjective ROS Limited/Unobtainable: No Interval Events: none major reported per nursing HEENT: Repors: no symptoms Respiratory: Reports: no symptoms Cardiovascular: Reports: no symptoms Gastrointestinal/Abdominal: Reports: no symptoms Musculoskeletal: Reports: pain, other Allergies: Coded Allergies: No Known Allergies (Unverified , 04/08/19) All Systems: reviewed and negative except above Objective Last 24 Hour Vital Signs Date Time Temp Pulse Resp B/P (MAP) Pulse Ox O2 Delivery O2 Flow Rate FiO2 04/03/20 08:00 97.5 109 20 123/73 (90) 95 04/03/20 04:00 97.8 89 17 126/67 (86) 95 04/03/20 04:00 83 04/03/20 00:00 98.2 88 19 116/63 (80) 94 04/03/20 00:00 85 04/02/20 21:00 Nasal Cannula 1.0 04/02/20 20:00 98.2 113 16 123/66 (85) 94 04/02/20 20:00 118 04/02/20 16:00 125 04/02/20 16:00 97.7 105 20 127/77 (94) 98 04/02/20 12:00 107 04/02/20 12:00 96.4 104 19 123/80 (94) 96 Intake and Output 04/02/20 04/03/20 19:00 07:00 Intake Total 650 ml 920 ml Balance 650 ml 920 ml Intake Oral 650 ml IV Total 660 ml Other 260 ml # Voids 4 2 # Bowel Movements 1 General Appearance: no acute distress HEENT: atraumatic Respiratory: crackles/rales Cardiovascular: regular rhythm, tachycardia Abdomen: soft, non tender Laboratory Tests 04/03/20 06:49: White Blood Count 12.0H, Red Blood Count 3.76L, Hemoglobin 10.6L, Hematocrit 31.9L, Mean Corpuscular Volume 85, Mean Corpuscular Hemoglobin 28.1, Mean Corpuscular Hemoglobin Concent 33.0, Red Cell Distribution Width 12.9, Platelet Count 578H, Mean Platelet Volume 6.8, Neutrophils (%) (Auto) 72.2, Lymphocytes (%) (Auto) 15.4L, Monocytes (%) (Auto) 9.1, Eosinophils (%) (Auto) 1.6, Basophils (%) (Auto) 1.7, Prothrombin Time 28.8H, Prothromb Time International Ratio 2.8H, Sodium Level 139, Potassium Level 3.2L, Chloride Level 103, Carbon Dioxide Level 28, Anion Gap 8, Blood Urea Nitrogen 3L, Creatinine 0.6, Estimat Glomerular Filtration Rate > 60, Glucose Level 124H, Calcium Level 9.1 Current Medications Medications (Trade) Dose Ordered Sig/Magda Route PRN Reason Start Time Stop Time Status Last Admin Dose Admin Acetaminophen (Tylenol) 650 mg Q6H PRN ORAL Mild Pain/Fever 100.5 F 03/26/20 00:00 04/25/20 00:00 04/01/20 20:12 Bisacodyl (Dulcolax) 10 mg DAILYPRN PRN RECTAL Constipation 03/26/20 09:15 06/24/20 09:14 Dextrose/Sodium Chloride 1,000 ml @ 60 mls/hr [id number] IV 03/26/20 08:15 04/25/20 08:14 04/02/20 23:24 Docusate Sodium (Colace) 100 mg TWICE A DAY ORAL 03/26/20 10:00 04/25/20 09:59 04/03/20 08:53 Guaifenesin/ Dextromethorphan (Robitussin DM Syrup) 15 ml Q6H PRN ORAL For Cough 03/26/20 03:00 06/24/20 02:59 04/03/20 01:27 Ibuprofen (Motrin) 600 mg Q8H PRN ORAL For Pain 03/26/20 00:00 04/25/20 00:00 04/01/20 16:58 Magnesium Hydroxide (Mom) 30 ml DAILYPRN PRN ORAL Constipation 03/26/20 09:15 04/25/20 09:14 03/26/20 16:27 Midodrine (Pro-Amatine) 5 mg THREE TIMES A DAY ORAL 03/26/20 13:00 06/24/20 12:59 04/03/20 08:53 Warfarin Sodium (Coumadin per pharmacy) 1 ea DAILY PRN MISC Per rx protocol 03/30/20 11:00 04/29/20 10:59 Warfarin Sodium (Warfarin Sod) 1 mg COUMADIN ORAL 04/03/20 17:00 04/03/20 19:00 Zolpidem Tartrate (Ambien) 5 mg HSPRN PRN ORAL Insomnia 03/30/20 21:00 04/06/20 20:59 Assessment/Plan Assessment/Plan 1. ?Pneumonia with fever and leukocytosis -s/p Abx per ID - fever resolved and leukocytosis improving 2. Normoxemia -No indication for steroids at this time given good saturation on room air/low flow oxygen - Currently on room air saturating at 95% - provide supplemental oxygen as needed 3. Pulmonary embolus, acute -Right posterior basal segmental PE extending into the subsegmental pulmonary arteries -Continue full dose Lovenox -Venous duplex US lower legs negative -Hypercoag work-up not needed due to age per heme onc - on Coumadin; pt can be discharged when INR >1.8 5. Elevated D-dimer -Duplex legs negative -On Lovenox for DVT ppx 6. Thyroid nodules -Hematology oncology following 7. 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 No voice mail set up. Will try again later. -> Long discussion with daughter, Dahlia who agrees with the plan (03/31) INR 2.8 now; medically stable for discharge from pulmonary standpoint The care for this patient was discussed with my supervising physician. Time spent for this case was approximately 31 minutes. Denzel Villalta Apr 03, 2020 09:16
--- NOTE | 2020-04-03 09:53 | Cardiac Electrophysiology PN ---
Assessment/Plan Assessment/Plan 1. SOB due to acute Right posterior basal segmental PE on Coumadin. EF 55%. Ruled out for AR INR today is 2.8. Lovenox DCed 2. PNA with WBC 18K on Abx per Dr Alonzo. WBC 11K now 3. Low K replaced 4. Low BP. On Midodrine 5 tid. DW RN Subjective Subjective No CP or SOB. On Coumadin for PE. EF 55%. On RA. Covid is negative. INR today is 2.8. Lovenox DCed. Zosyn DCed Objective Last 24 Hour Vital Signs Date Time Temp Pulse Resp B/P (MAP) Pulse Ox O2 Delivery O2 Flow Rate FiO2 04/03/20 08:00 97.5 109 20 123/73 (90) 95 04/03/20 04:00 97.8 89 17 126/67 (86) 95 04/03/20 04:00 83 04/03/20 00:00 98.2 88 19 116/63 (80) 94 04/03/20 00:00 85 04/02/20 21:00 Nasal Cannula 1.0 04/02/20 20:00 98.2 113 16 123/66 (85) 94 04/02/20 20:00 118 04/02/20 16:00 125 04/02/20 16:00 97.7 105 20 127/77 (94) 98 04/02/20 12:00 107 04/02/20 12:00 96.4 104 19 123/80 (94) 96 Intake and Output 04/02/20 04/03/20 19:00 07:00 Intake Total 650 ml 920 ml Balance 650 ml 920 ml Intake Oral 650 ml IV Total 660 ml Other 260 ml # Voids 4 2 # Bowel Movements 1 Laboratory Tests Test 04/03/20 06:49 White Blood Count 12.0 K/UL (4.8-10.8) H Red Blood Count 3.76 M/UL (4.20-5.40) L Hemoglobin 10.6 G/DL (12.0-16.0) L Hematocrit 31.9 % (37.0-47.0) L Mean Corpuscular Volume 85 FL (80-99) Mean Corpuscular Hemoglobin 28.1 PG (27.0-31.0) Mean Corpuscular Hemoglobin Concent 33.0 G/DL (32.0-36.0) Red Cell Distribution Width 12.9 % (11.6-14.8) Platelet Count 578 K/UL (150-450) H Mean Platelet Volume 6.8 FL (6.5-10.1) Neutrophils (%) (Auto) 72.2 % (45.0-75.0) Lymphocytes (%) (Auto) 15.4 % (20.0-45.0) L Monocytes (%) (Auto) 9.1 % (1.0-10.0) Eosinophils (%) (Auto) 1.6 % (0.0-3.0) Basophils (%) (Auto) 1.7 % (0.0-2.0) Prothrombin Time 28.8 SEC (9.30-11.50) H Prothromb Time International Ratio 2.8 (0.9-1.1) H Sodium Level 139 MMOL/L (136-145) Potassium Level 3.2 MMOL/L (3.5-5.1) L Chloride Level 103 MMOL/L (98-107) Carbon Dioxide Level 28 MMOL/L (21-32) Anion Gap 8 mmol/L (5-15) Blood Urea Nitrogen 3 mg/dL (7-18) L Creatinine 0.6 MG/DL (0.55-1.30) Estimat Glomerular Filtration Rate > 60 mL/min (>60) Glucose Level 124 MG/DL (74-106) H Calcium Level 9.1 MG/DL (8.5-10.1) Objective HEENT: No JVD CARDIOVASCULAR: RRR, No murmur. LUNGS: Clear ABDOMEN: Bowel sounds distant. EXTREMITIES: No cyanosis, clubbing, or edema. NEUROLOGIC: Moves all extremities David Meek MD Apr 03, 2020 09:53
[2020-04-03 12:00] VITALS: BP 138/84
[2020-04-03 16:00] VITALS: BP 126/69
--- NOTE | 2020-04-03 16:44 | NUR ---
NURSE NOTES: notified Dr. Aldana about potassium level 3.2; receives order to administered KCL 40 MEQ po x1 for supplement. order noted and carried out. Addendum: 04/03/20 at 1646 by Gee Boggs RN Notified Dr. Aldana about potassium level 3.2; received order to administer KCL 40 MEQ po x1 for supplement. order noted and carried out.
[2020-04-03] MEDS ORDERED: Warfarin Sodium 1mg ORAL SCH (17:00)
[2020-04-03] MEDS: D5 1/2NS 1,000 ML IV SCH (17:05)
--- NOTE | 2020-04-03 19:05 | NUR ---
NURSE HAND-OFF REPORT: Important Events on Shift:n/a Patient Status: stable Diet: regular Pending Orders: n/a Pending Results/Labs:n/a Pending MD notification:n/a Latest Vital Signs: Temperature 98.3 , Pulse 103 , B/P 126 /69 , Respiratory Rate 20 , O2 SAT 95 , Nasal Cannula, O2 Flow Rate 1.0 . Vital Sign Comment: stable EKG Rhythm: Sinus Tachycardia Rhythm change?: N MD Notified?: N - MD Response: Latest Duran Fall Score: 35 Fall Risk: Medium Risk Safety Measures: Call light Within Reach, Bed Alarm Zone 1, Side Rails Side Rails x2, Bed position Low and Locked. Fall Precautions: Patient Fall Education Report given to inez.
--- NOTE | 2020-04-03 19:15 | NUR ---
NURSE NOTES: Report received from AARON Flynn. Patient is awake on bed in stable condition, alert and oriented x 4. On regular diet, instructed and amenable. 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 On room air, saturating 96% and no episode of desaturation nor SOB per report. IV site is on right forearm g-20 running D5 1/2 NS @ 60cc/hour that is patent and intact. Safety measures are in place, bed in lowest and locked position, side rails up x 2, call light button and bedside table within reach, instructed to call for any assistance needed. Will continue plan of care.
[2020-04-03 20:00] VITALS: BP 119/59
[2020-04-04] VITALS: BP 125/67
[2020-04-04 04:00] VITALS: BP 107/57
--- NOTE | 2020-04-04 06:43 | Hematology/Onc Progress Note ---
Assessment/Plan Assessment/Plan Assessment and Recs # Right posterior basal segmental pulmonary embolism extending into the subsegmental pulmonary arteries. No evidence of right heart strain. Right lung base airspace opacities likely sequela of ischemia from pulmonary embolism. --> anticoagulation has been started lovenox bid --> r/o bleeding --> venous duplex lower legs--> NEG --> hypercoag w/u not needed due to age # Elevated ddimer r/o infection -> does have a pe --> on coumadin # Anemia of chronic disease --> hgb 10->10 --> no bleeding at this time --> ferritin is elev # Leukocytosis due to reactive process --> abx as needed zosyn --> smear is noted --> on abx -->off --> r/o covid --> wbc 19-->16 # Thrombocytosis, reactive due to Pneumonia -> abx as needed zosyn-->off # Thyroid nodule -> r/o nodules -> us thyroid as needed # Dvt ppx coumadin po --> inr goal 2-3 Appreciate consultation and asif Rn Subjective Constitutional: Denies: no symptoms, chills, fever, malaise, weakness, other HEENT: Denies: no symptoms, eye pain, blurred vision, tearing, double vision, ear pain, ear discharge, nose pain, nose congestion, throat pain, throat swelling, mouth pain, mouth swelling, other Cardiovascular: Denies: no symptoms, chest pain, edema, irregular heart rate, lightheadedness, palpitations, syncope, other Respiratory: Denies: no symptoms, cough, shortness of breath, SOB with excert ion, SOB at rest, sputum, wheezing, other Gastrointestinal/Abdominal: Denies: no symptoms, abdomen distended, abdominal pain, black stools, tarry stools, blood in stool, constipated, diarrhea, difficulty swallowing, nausea, poor appetite, poor fluid intake, rectal bleeding, vomiting, other Neurologic/Psychiatric: Denies: no symptoms, anxiety, depressed, emotional problems, headache, numbness, paresthesia, pre-existing deficit, seizure, tingling, tremors, weakness, other Endocrine: Denies: no symptoms, excessive sweating, flushing, intolerance to cold, intolerance to heat, increased hunger, increased thirst, increased urine, unexplained weight gain, unexplained weight loss, other Hematologic/Lymphatic: Denies: no symptoms, anemia, easy bleeding, easy bruising, adenopathy, other Allergies: Coded Allergies: No Known Allergies (Unverified , 04/08/19) Subjective 03/27 on nc, with back pain, on ivf, labs are noted, downtrending hgb 03/28 zosyn noted, being rule out for covid, meds reviewed 03/29 labs reviewed, with 2lnc, comfortable, able to converse 03/30 meds noted, no bleeding, dw rn, coughing still, abx 04/01 labs are noted, no bleeding, meds reviewed, on 1l nc, on abx 04/02 on nc, fluids, no bleeding, cbc and bmp ordered for am 04/03 nc, calm, cooperative, no bleeding or chills, labs reviewed 04/04 nc, meds noted, no bleeding, labs reviewed Objective Objective Current Medications Medications (Trade) Dose Ordered Sig/Magda Route PRN Reason Start Time Stop Time Status Last Admin Dose Admin Acetaminophen (Tylenol) 650 mg Q6H PRN ORAL Mild Pain/Fever 100.5 F 03/26/20 00:00 04/25/20 00:00 04/04/20 00:16 Bisacodyl (Dulcolax) 10 mg DAILYPRN PRN RECTAL Constipation 03/26/20 09:15 06/24/20 09:14 Dextrose/Sodium Chloride 1,000 ml @ 60 mls/hr [id number] IV 03/26/20 08:15 04/25/20 08:14 04/03/20 17:05 Docusate Sodium (Colace) 100 mg TWICE A DAY ORAL 03/26/20 10:00 04/25/20 09:59 04/03/20 17:29 Guaifenesin/ Dextromethorphan (Robitussin DM Syrup) 15 ml Q6H PRN ORAL For Cough 03/26/20 03:00 06/24/20 02:59 04/03/20 20:52 Ibuprofen (Motrin) 600 mg Q8H PRN ORAL For Pain 03/26/20 00:00 04/25/20 00:00 04/01/20 16:58 Magnesium Hydroxide (Mom) 30 ml DAILYPRN PRN ORAL Constipation 03/26/20 09:15 04/25/20 09:14 03/26/20 16:27 Midodrine (Pro-Amatine) 5 mg THREE TIMES A DAY ORAL 03/26/20 13:00 06/24/20 12:59 04/03/20 17:29 Warfarin Sodium (Coumadin per pharmacy) 1 ea DAILY PRN MISC Per rx protocol 03/30/20 11:00 04/29/20 10:59 Zolpidem Tartrate (Ambien) 5 mg HSPRN PRN ORAL Insomnia 03/30/20 21:00 04/06/20 20:59 Last 24 Hour Vital Signs Date Time Temp Pulse Resp B/P (MAP) Pulse Ox O2 Delivery O2 Flow Rate FiO2 04/04/20 04:00 73 04/04/20 04:00 97.9 62 18 107/57 (74) 97 04/04/20 00:46 100.0 04/04/20 00:00 100.5 100 20 125/67 (86) 97 04/04/20 00:00 100 04/03/20 21:00 Nasal Cannula 1.0 04/03/20 20:00 103 04/03/20 20:00 99.9 107 22 119/59 (79) 93 04/03/20 16:00 103 04/03/20 16:00 98.3 93 20 126/69 (88) 95 04/03/20 12:00 97.5 82 18 138/84 (102) 96 04/03/20 12:00 102 04/03/20 09:00 Nasal Cannula 1.0 04/03/20 08:00 97.5 109 20 123/73 (90) 95 04/03/20 08:00 99 04/03/20 04:00 97.8 89 17 126/67 (86) 95 04/03/20 04:00 83 04/03/20 00:00 98.2 88 19 116/63 (80) 94 04/03/20 00:00 85 04/02/20 21:00 Nasal Cannula 1.0 04/02/20 20:00 98.2 113 16 123/66 (85) 94 04/02/20 20:00 118 04/02/20 16:00 125 04/02/20 16:00 97.7 105 20 127/77 (94) 98 04/02/20 12:00 107 04/02/20 12:00 96.4 104 19 123/80 (94) 96 04/02/20 09:00 Nasal Cannula 1.0 04/02/20 08:14 98.8 04/02/20 08:00 101 04/02/20 08:00 96.8 103 19 125/70 (88) 98 Intake and Output 04/03/20 04/04/20 19:00 07:00 Intake Total 360 ml Balance 360 ml Intake Oral 360 ml # Voids 3 Labs Test 04/01/20 07:20 04/02/20 07:23 04/03/20 06:49 Prothrombin Time 14.6 SEC (9.30-11.50) 20.7 SEC (9.30-11.50) 28.8 SEC (9.30-11.50) Prothromb Time International Ratio 1.4 (0.9-1.1) 2.0 (0.9-1.1) 2.8 (0.9-1.1) White Blood Count 11.4 K/UL (4.8-10.8) 12.0 K/UL (4.8-10.8) Red Blood Count 4.02 M/UL (4.20-5.40) 3.76 M/UL (4.20-5.40) Hemoglobin 11.1 G/DL (12.0-16.0) 10.6 G/DL (12.0-16.0) Hematocrit 34.6 % (37.0-47.0) 31.9 % (37.0-47.0) Mean Corpuscular Volume 86 FL (80-99) 85 FL (80-99) Mean Corpuscular Hemoglobin 27.6 PG (27.0-31.0) 28.1 PG (27.0-31.0) Mean Corpuscular Hemoglobin Concent 32.1 G/DL (32.0-36.0) 33.0 G/DL (32.0-36.0) Red Cell Distribution Width 12.8 % (11.6-14.8) 12.9 % (11.6-14.8) Platelet Count 558 K/UL (150-450) 578 K/UL (150-450) Mean Platelet Volume 6.9 FL (6.5-10.1) 6.8 FL (6.5-10.1) Neutrophils (%) (Auto) 74.4 % (45.0-75.0) 72.2 % (45.0-75.0) Lymphocytes (%) (Auto) 15.2 % (20.0-45.0) 15.4 % (20.0-45.0) Monocytes (%) (Auto) 7.0 % (1.0-10.0) 9.1 % (1.0-10.0) Eosinophils (%) (Auto) 2.2 % (0.0-3.0) 1.6 % (0.0-3.0) Basophils (%) (Auto) 1.1 % (0.0-2.0) 1.7 % (0.0-2.0) Sodium Level 139 MMOL/L (136-145) Potassium Level 3.2 MMOL/L (3.5-5.1) Chloride Level 103 MMOL/L (98-107) Carbon Dioxide Level 28 MMOL/L (21-32) Anion Gap 8 mmol/L (5-15) Blood Urea Nitrogen 3 mg/dL (7-18) Creatinine 0.6 MG/DL (0.55-1.30) Estimat Glomerular Filtration Rate > 60 mL/min (>60) Glucose Level 124 MG/DL (74-106) Calcium Level 9.1 MG/DL (8.5-10.1) Height (Feet): 5 Height (Inches): 4.00 Weight (Pounds): 145 Objective Physical Exam General: Awake and alert, no acute distress, mild fever, anxious appearing HEENT: NC/AT. EOMI. dry mucous membranes. Cardiovascular: Tachycardic. S1 and S2 normal. No murmur appreciated Resp: Normal work of breathing. No cough or wheezing during exam. ++crackles bilaterally. Abdomen: Abdomen is soft, nondistended. Nontender Skin: Intact. No abrasions, laceration or rash over the exposed skin MSK: Normal tone and bulk. Moving all extremities. Neuro: Awake and alert. Mentating appropriately. Kenny Aldana MD Apr 04, 2020 06:43
[2020-04-04 07:18] LABS: BASOPHILS % (AUTO) 1.3 % (0.0-2.0); EOSINOPHILS % (AUTO) 1.9 % (0.0-3.0); HEMATOCRIT 31.2 % (37.0-47.0); HEMOGLOBIN 10.2 G/DL (12.0-16.0); LYMPHOCYTES % (AUTO) 19.7 % (20.0-45.0); MEAN CORPUSCULAR VOLUME 85 FL (80-99); MONOCYTES % (AUTO) 10.1 % (1.0-10.0); PLATELET COUNT 625 K/UL (150-450); RED BLOOD COUNT 3.69 M/UL (4.20-5.40); RED CELL DISTRIBUTION WIDTH 12.5 % (11.6-14.8); WHITE BLOOD COUNT 12.2 K/UL (4.8-10.8)
[2020-04-04 07:33] LABS: ANION GAP 7 mmol/L (5-15); BLOOD UREA NITROGEN 5 mg/dL (7-18); CALCIUM 9.2 MG/DL (8.5-10.1); CARBON DIOXIDE 28 MMOL/L (21-32); CHLORIDE 104 MMOL/L (98-107); CREATININE 0.6 MG/DL (0.55-1.30); POTASSIUM 3.6 MMOL/L (3.5-5.1); SODIUM 139 MMOL/L (136-145)
[2020-04-04 07:41] LABS: INR 2.5 (0.9-1.1)
--- NOTE | 2020-04-04 07:47 | NUR ---
NURSE HAND-OFF REPORT: Important Events on Shift: Patient had a fever last night 100.5 and resolved with tylenol 650mg. Patient Status: Patient is awake on bed in sttable condition. Plan of care endorsed. Diet: Regular diet Pending Orders: none Pending Results/Labs:am lab result Pending MD notification:none Latest Vital Signs: Temperature 97.9 , Pulse 62 , B/P 107 /57 , Respiratory Rate 18 , O2 SAT 97 , Nasal Cannula, O2 Flow Rate 1.0 . Vital Sign Comment: stable EKG Rhythm: Sinus Rhythm Rhythm change?: N MD Notified?: N - MD Response: Latest Duran Fall Score: 35 Fall Risk: Medium Risk Safety Measures: Call light Within Reach, Bed Alarm Zone 1, Side Rails Side Rails x2, Bed position Low and Locked. Fall Precautions: Patient Fall Education Report given to AARON Fernandez.
--- NOTE | 2020-04-04 07:50 | NUR ---
NURSE NOTES: Report received from Janna WALKER. Patient seen on rounds, awake and up in bed, on room with no signs of distress. No complaints of pain. Nurse reports low grade fever overnight T100.5 F resolved with tylenol. Now afebrile. PIV on right forearm patent and infusing D5 1/2 NS at 60 cc/hr. Pt is continent and ambulatory with steady gait. Bed low and locked, siderails up x 2, call light placed within reach and instructed to call nurse for assistance. Will continue with plan of care.
[2020-04-04 08:00] VITALS: BP 111/64
[2020-04-04] MEDS: Docusate 100mg cap ORAL SCH ×2 (08:21→18:00)
[2020-04-04] MEDS: D5 1/2NS 1,000 ML IV SCH (08:22)
--- NOTE | 2020-04-04 08:23 | Infectious Diseases Prog Note ---
Assessment/Plan 69yo F with: Febrile to 100.8 Back pain Pulmonary embolus, acute R/o COVID Satting well on 2L NC Leukocytosis to 16 Lymphopenia 2/7 COVID PCR neg BCx NTD UA neg, UCx mixed jono CTA chest: 1. Right posterior basal segmental pulmonary embolism extending into the subsegmental pulmonary arteries. No evidence of right heart strain. 2. Right lung base airspace opacities likely sequela of ischemia from pulmonary embolism. 3. Left lung base atelectasis. Underlying concomitant infectious process is not definitively excluded. 4. Bilateral thyroid nodules. Flu neg Cr 0.9 Plan: Cont to monitor off abx Encourage incentive spirometer Trend WBC - improving Trend temp curve, possible / PE 04/03 SP Zosyn #7 for pna, empiric 03/27 SP CTX #2 empiric Monitor CBC/CMP Monitor temp curve, hemodynamics Monitor resp status D/w RN Thank you for this consult. [facility] will continue to follow. Subjective Allergies: Coded Allergies: No Known Allergies (Unverified , 04/08/19) Tmax 100.5 WBC stable at 12 Satting 97% on 1L NC NAD in bed, says breathing is ok Objective Last 24 Hour Vital Signs Date Time Temp Pulse Resp B/P (MAP) Pulse Ox O2 Delivery O2 Flow Rate FiO2 04/04/20 04:00 73 04/04/20 04:00 97.9 62 18 107/57 (74) 97 04/04/20 00:46 100.0 04/04/20 00:00 100.5 100 20 125/67 (86) 97 04/04/20 00:00 100 04/03/20 21:00 Nasal Cannula 1.0 04/03/20 20:00 103 04/03/20 20:00 99.9 107 22 119/59 (79) 93 04/03/20 16:00 103 04/03/20 16:00 98.3 93 20 126/69 (88) 95 04/03/20 12:00 97.5 82 18 138/84 (102) 96 04/03/20 12:00 102 04/03/20 09:00 Nasal Cannula 1.0 Height (Feet): 5 Height (Inches): 4.00 Weight (Pounds): 145 Gen: NAD HEENT: NCAT Pulm: BL chest rise on NC, non-labored Abd: Non-distended Ext: No c/c/e Skin: No visible rashes Neuro: Awake, alert, interactive Laboratory Tests Test 04/04/20 06:12 White Blood Count 12.2 K/UL (4.8-10.8) H Red Blood Count 3.69 M/UL (4.20-5.40) L Hemoglobin 10.2 G/DL (12.0-16.0) L Hematocrit 31.2 % (37.0-47.0) L Mean Corpuscular Volume 85 FL (80-99) Mean Corpuscular Hemoglobin 27.6 PG (27.0-31.0) Mean Corpuscular Hemoglobin Concent 32.6 G/DL (32.0-36.0) Red Cell Distribution Width 12.5 % (11.6-14.8) Platelet Count 625 K/UL (150-450) H Mean Platelet Volume 6.4 FL (6.5-10.1) L Neutrophils (%) (Auto) 67.0 % (45.0-75.0) Lymphocytes (%) (Auto) 19.7 % (20.0-45.0) L Monocytes (%) (Auto) 10.1 % (1.0-10.0) H Eosinophils (%) (Auto) 1.9 % (0.0-3.0) Basophils (%) (Auto) 1.3 % (0.0-2.0) Prothrombin Time 26.1 SEC (9.30-11.50) H Prothromb Time International Ratio 2.5 (0.9-1.1) H Sodium Level 139 MMOL/L (136-145) Potassium Level 3.6 MMOL/L (3.5-5.1) Chloride Level 104 MMOL/L (98-107) Carbon Dioxide Level 28 MMOL/L (21-32) Anion Gap 7 mmol/L (5-15) Blood Urea Nitrogen 5 mg/dL (7-18) L Creatinine 0.6 MG/DL (0.55-1.30) Estimat Glomerular Filtration Rate > 60 mL/min (>60) Glucose Level 112 MG/DL (74-106) H Calcium Level 9.2 MG/DL (8.5-10.1) Current Medications Medications (Trade) Dose Ordered Sig/Magda Route PRN Reason Start Time Stop Time Status Last Admin Dose Admin Acetaminophen (Tylenol) 650 mg Q6H PRN ORAL Mild Pain/Fever 100.5 F 03/26/20 00:00 04/25/20 00:00 04/04/20 00:16 Bisacodyl (Dulcolax) 10 mg DAILYPRN PRN RECTAL Constipation 03/26/20 09:15 06/24/20 09:14 Dextrose/Sodium Chloride 1,000 ml @ 60 mls/hr [id number] IV 03/26/20 08:15 04/25/20 08:14 04/03/20 17:05 Docusate Sodium (Colace) 100 mg TWICE A DAY ORAL 03/26/20 10:00 04/25/20 09:59 04/03/20 17:29 Guaifenesin/ Dextromethorphan (Robitussin DM Syrup) 15 ml Q6H PRN ORAL For Cough 03/26/20 03:00 06/24/20 02:59 04/03/20 20:52 Ibuprofen (Motrin) 600 mg Q8H PRN ORAL For Pain 03/26/20 00:00 04/25/20 00:00 04/01/20 16:58 Magnesium Hydroxide (Mom) 30 ml DAILYPRN PRN ORAL Constipation 03/26/20 09:15 04/25/20 09:14 03/26/20 16:27 Midodrine (Pro-Amatine) 5 mg THREE TIMES A DAY ORAL 03/26/20 13:00 06/24/20 12:59 04/03/20 17:29 Warfarin Sodium (Coumadin per pharmacy) 1 ea DAILY PRN MISC Per rx protocol 03/30/20 11:00 04/29/20 10:59 Zolpidem Tartrate (Ambien) 5 mg HSPRN PRN ORAL Insomnia 03/30/20 21:00 04/06/20 20:59 Lor Millan M.D. Apr 04, 2020 08:23
--- NOTE | 2020-04-04 10:08 | Cardiac Electrophysiology PN ---
Assessment/Plan Assessment/Plan 1. SOB due to acute Right posterior basal segmental PE on Coumadin per pharmacy. EF 55%. Ruled out for [facility] is 2.5 today. 2. PNA with initial WBC 18K on Abx per Dr. Alonzo. WBC 12.2 K now and febrile again 3. Low K replaced. 3.6 today 4. Low BP. On Midodrine 5 tid. DW RN Subjective Subjective No CP or SOB. On Coumadin for PE. EF 55%. On RA. Covid is negative 03/30. INR is 2.8. Had fever 100.5 again. Now off Abx Objective Last 24 Hour Vital Signs Date Time Temp Pulse Resp B/P (MAP) Pulse Ox O2 Delivery O2 Flow Rate FiO2 04/04/20 08:00 99 04/04/20 04:00 73 04/04/20 04:00 97.9 62 18 107/57 (74) 97 04/04/20 00:46 100.0 04/04/20 00:00 100.5 100 20 125/67 (86) 97 04/04/20 00:00 100 04/03/20 21:00 Nasal Cannula 1.0 04/03/20 20:00 103 04/03/20 20:00 99.9 107 22 119/59 (79) 93 04/03/20 16:00 103 04/03/20 16:00 98.3 93 20 126/69 (88) 95 04/03/20 12:00 97.5 82 18 138/84 (102) 96 04/03/20 12:00 102 Intake and Output 04/03/20 04/04/20 19:00 07:00 Intake Total 360 ml 500 ml Balance 360 ml 500 ml Intake Oral 360 ml 500 ml # Voids 3 3 Laboratory Tests Test 04/04/20 06:12 White Blood Count 12.2 K/UL (4.8-10.8) H Red Blood Count 3.69 M/UL (4.20-5.40) L Hemoglobin 10.2 G/DL (12.0-16.0) L Hematocrit 31.2 % (37.0-47.0) L Mean Corpuscular Volume 85 FL (80-99) Mean Corpuscular Hemoglobin 27.6 PG (27.0-31.0) Mean Corpuscular Hemoglobin Concent 32.6 G/DL (32.0-36.0) Red Cell Distribution Width 12.5 % (11.6-14.8) Platelet Count 625 K/UL (150-450) H Mean Platelet Volume 6.4 FL (6.5-10.1) L Neutrophils (%) (Auto) 67.0 % (45.0-75.0) Lymphocytes (%) (Auto) 19.7 % (20.0-45.0) L Monocytes (%) (Auto) 10.1 % (1.0-10.0) H Eosinophils (%) (Auto) 1.9 % (0.0-3.0) Basophils (%) (Auto) 1.3 % (0.0-2.0) Prothrombin Time 26.1 SEC (9.30-11.50) H Prothromb Time International Ratio 2.5 (0.9-1.1) H Sodium Level 139 MMOL/L (136-145) Potassium Level 3.6 MMOL/L (3.5-5.1) Chloride Level 104 MMOL/L (98-107) Carbon Dioxide Level 28 MMOL/L (21-32) Anion Gap 7 mmol/L (5-15) Blood Urea Nitrogen 5 mg/dL (7-18) L Creatinine 0.6 MG/DL (0.55-1.30) Estimat Glomerular Filtration Rate > 60 mL/min (>60) Glucose Level 112 MG/DL (74-106) H Calcium Level 9.2 MG/DL (8.5-10.1) Objective HEENT: No JVD CARDIOVASCULAR: RRR, No murmur. LUNGS: Clear ABDOMEN: Bowel sounds distant. EXTREMITIES: No cyanosis, clubbing, or edema. NEUROLOGIC: Moves all extremities David Meek MD Apr 04, 2020 10:08
[2020-04-04 12:00] VITALS: BP 122/60
--- NOTE | 2020-04-04 14:49 | NUR ---
CASE MANAGEMENT:REVIEW 04/04/20 SI: PNA. PULMONARY EMBOLI. BILATERAL THYROID NODULES 100.5 100 20 125/67 97% ON RA WBC+12.2 H/H-10.2/31.2 PT+26.1 CR+2.5 IS: COUMADIN 2.5 MG PO X1 IV ZOSYN Q8HRS IVF@60/HR MIDODRINE PO TID LOVENOX SQ Q12 NORCO PO Q6HRS PRN : TELEMETRY STATUS DCP; FROM HOME PLAN:
--- NOTE | 2020-04-04 14:59 | Pulmonology Progress Note ---
Subjective ROS Limited/Unobtainable: No Interval Events: none major reported per nursing HEENT: Repors: no symptoms Respiratory: Reports: no symptoms Cardiovascular: Reports: no symptoms Gastrointestinal/Abdominal: Reports: no symptoms Musculoskeletal: Reports: pain, other Allergies: Coded Allergies: No Known Allergies (Unverified , 04/08/19) All Systems: reviewed and negative except above Objective Last 24 Hour Vital Signs Date Time Temp Pulse Resp B/P (MAP) Pulse Ox O2 Delivery O2 Flow Rate FiO2 04/04/20 09:00 Room Air 04/04/20 08:00 98.9 91 18 111/64 (80) 97 04/04/20 08:00 99 04/04/20 04:00 73 04/04/20 04:00 97.9 62 18 107/57 (74) 97 04/04/20 00:46 100.0 04/04/20 00:00 100.5 100 20 125/67 (86) 97 04/04/20 00:00 100 04/03/20 21:00 Nasal Cannula 1.0 04/03/20 20:00 103 04/03/20 20:00 99.9 107 22 119/59 (79) 93 04/03/20 16:00 103 04/03/20 16:00 98.3 93 20 126/69 (88) 95 Intake and Output 04/03/20 04/04/20 19:00 07:00 Intake Total 360 ml 500 ml Balance 360 ml 500 ml Intake Oral 360 ml 500 ml # Voids 3 3 General Appearance: no acute distress HEENT: atraumatic Respiratory: crackles/rales Cardiovascular: regular rhythm, tachycardia Abdomen: soft, non tender Laboratory Tests 04/04/20 06:12: White Blood Count 12.2H, Red Blood Count 3.69L, Hemoglobin 10.2L, Hematocrit 31.2L, Mean Corpuscular Volume 85, Mean Corpuscular Hemoglobin 27.6, Mean Corpuscular Hemoglobin Concent 32.6, Red Cell Distribution Width 12.5, Platelet Count 625H, Mean Platelet Volume 6.4L, Neutrophils (%) (Auto) 67.0, Lymphocytes (%) (Auto) 19.7L, Monocytes (%) (Auto) 10.1H, Eosinophils (%) (Auto) 1.9, Basophils (%) (Auto) 1.3, Prothrombin Time 26.1H, Prothromb Time International Ratio 2.5H, Sodium Level 139, Potassium Level 3.6, Chloride Level 104, Carbon Dioxide Level 28, Anion Gap 7, Blood Urea Nitrogen 5L, Creatinine 0.6, Estimat Glomerular Filtration Rate > 60, Glucose Level 112H, Calcium Level 9.2 Current Medications Medications (Trade) Dose Ordered Sig/Magda Route PRN Reason Start Time Stop Time Status Last Admin Dose Admin Acetaminophen (Tylenol) 650 mg Q6H PRN ORAL Mild Pain/Fever 100.5 F 03/26/20 00:00 04/25/20 00:00 04/04/20 00:16 Bisacodyl (Dulcolax) 10 mg DAILYPRN PRN RECTAL Constipation 03/26/20 09:15 06/24/20 09:14 Dextrose/Sodium Chloride 1,000 ml @ 60 mls/hr [id number] IV 03/26/20 08:15 04/25/20 08:14 04/04/20 08:22 Docusate Sodium (Colace) 100 mg TWICE A DAY ORAL 03/26/20 10:00 04/25/20 09:59 04/04/20 08:21 Guaifenesin/ Dextromethorphan (Robitussin DM Syrup) 15 ml Q6H PRN ORAL For Cough 03/26/20 03:00 06/24/20 02:59 04/03/20 20:52 Ibuprofen (Motrin) 600 mg Q8H PRN ORAL For Pain 03/26/20 00:00 04/25/20 00:00 04/01/20 16:58 Magnesium Hydroxide (Mom) 30 ml DAILYPRN PRN ORAL Constipation 03/26/20 09:15 04/25/20 09:14 03/26/20 16:27 Midodrine (Pro-Amatine) 5 mg THREE TIMES A DAY ORAL 03/26/20 13:00 06/24/20 12:59 04/04/20 08:21 Warfarin Sodium (Coumadin per pharmacy) 1 ea DAILY PRN MISC Per rx protocol 03/30/20 11:00 04/29/20 10:59 Warfarin Sodium (Coumadin) 2.5 mg COUMADIN ORAL 04/04/20 17:00 04/04/20 19:00 Zolpidem Tartrate (Ambien) 5 mg HSPRN PRN ORAL Insomnia 03/30/20 21:00 04/06/20 20:59 Assessment/Plan Assessment/Plan 1. ?Pneumonia with fever and leukocytosis -s/p Abx per ID - fever resolved and leukocytosis improving 2. Normoxemia -No indication for steroids at this time given good saturation on room air/low flow oxygen - Currently on room air saturating at 95% - provide supplemental oxygen as needed 3. Pulmonary embolus, acute -Right posterior basal segmental PE extending into the subsegmental pulmonary arteries -Continue full dose Lovenox -Venous duplex US lower legs negative -Hypercoag work-up not needed due to age per heme onc - on Coumadin; pt can be discharged when INR >1.8 5. Elevated D-dimer -Duplex legs negative -On Lovenox for DVT ppx 6. Thyroid nodules -Hematology oncology following 7. COVID-19 PCR negative (03/25) - now off isolation Attempted to reach Dahlia (daughter) [phone] for an update per her request but did not picker feeder. No voice mail set up. Will try again later. -> Long discussion with daughter, Dahlia who agrees with the plan (03/31) INR >1.8 now; medically stable for discharge from pulmonary standpoint The care for this patient was discussed with my supervising physician. Time spent for this case was approximately 31 minutes. Denzel Villalta Apr 04, 2020 14:59
--- NOTE | 2020-04-04 15:11 | NUR ---
NURSE NOTES: Cleared from cardio, pulmo and ID standpoint to discharge. Followed up discharge plan with Dr. Moore. says he will be by to check on patient.
[2020-04-04 16:00] VITALS: BP 119/62
--- NOTE | 2020-04-04 16:10 | General Progress Note ---
Subjective Constitutional: Reports: weakness Allergies: Coded Allergies: No Known Allergies (Unverified , 04/08/19) All Systems: reviewed and negative except above Subjective calm in bed Objective Last 24 Hour Vital Signs Date Time Temp Pulse Resp B/P (MAP) Pulse Ox O2 Delivery O2 Flow Rate FiO2 04/04/20 12:00 83 04/04/20 12:00 98.0 83 18 122/60 (80) 96 04/04/20 09:00 Room Air 04/04/20 08:00 98.9 91 18 111/64 (80) 97 04/04/20 08:00 99 04/04/20 04:00 73 04/04/20 04:00 97.9 62 18 107/57 (74) 97 04/04/20 00:46 100.0 04/04/20 00:00 100.5 100 20 125/67 (86) 97 04/04/20 00:00 100 04/03/20 21:00 Nasal Cannula 1.0 04/03/20 20:00 103 04/03/20 20:00 99.9 107 22 119/59 (79) 93 Intake and Output 04/03/20 04/04/20 19:00 07:00 Intake Total 360 ml 500 ml Balance 360 ml 500 ml Intake Oral 360 ml 500 ml # Voids 3 3 Laboratory Tests 04/04/20 06:12: White Blood Count 12.2H, Red Blood Count 3.69L, Hemoglobin 10.2L, Hematocrit 31.2L, Mean Corpuscular Volume 85, Mean Corpuscular Hemoglobin 27.6, Mean Corpuscular Hemoglobin Concent 32.6, Red Cell Distribution Width 12.5, Platelet Count 625H, Mean Platelet Volume 6.4L, Neutrophils (%) (Auto) 67.0, Lymphocytes (%) (Auto) 19.7L, Monocytes (%) (Auto) 10.1H, Eosinophils (%) (Auto) 1.9, Basophils (%) (Auto) 1.3, Prothrombin Time 26.1H, Prothromb Time International Ratio 2.5H, Sodium Level 139, Potassium Level 3.6, Chloride Level 104, Carbon Dioxide Level 28, Anion Gap 7, Blood Urea Nitrogen 5L, Creatinine 0.6, Estimat Glomerular Filtration Rate > 60, Glucose Level 112H, Calcium Level 9.2 Height (Feet): 5 Height (Inches): 4.00 Weight (Pounds): 145 General Appearance: alert EENT: normal ENT inspection Neck: normal alignment Cardiovascular: normal peripheral pulses, normal rate, regular rhythm Respiratory/Chest: chest wall non-tender, lungs clear, normal breath sounds Abdomen: normal bowel sounds, non tender, soft Extremities: normal inspection Edema: no edema noted Arm (L), no edema noted Arm (R), no edema noted Leg (L), no edema noted Leg (R), no edema noted Pedal (L), no edema noted Pedal (R), no edema noted Generalized Neurologic: responsive, motor weakness Skin: normal pigmentation, warm/dry Assessment/Plan Problem List: (1) Pneumonia ICD Codes: J18.9 - Pneumonia, unspecified organism SNOMED: 521096061 (2) Suspected 2019 novel coronavirus infection ICD Codes: Z20.822 - Contact with and (suspected) exposure to COVID-19 SNOMED: 081867897 (3) Elevated d-dimer ICD Codes: R79.89 - Other specified abnormal findings of blood chemistry SNOMED: 580963774 (4) Vertigo ICD Codes: R42 - Dizziness and giddiness SNOMED: 017741866 Status: stable, progressing Assessment/Plan: o2 pulm tx prn abx cbc bmp am dc if clear Nadir Moore DO Apr 04, 2020 16:10
--- NOTE | 2020-04-04 16:51 | Diagnostic Imaging Report ---
Indication: Lower extremity pain Technique: Grayscale and duplex images of the bilateral lower extremity veins Comparison: None Findings: Bilaterally, grayscale and duplex images demonstrate no evidence of intraluminal thrombus. Normal phasic Doppler waveforms, demonstrating normal augmentation response and no evidence of valvular insufficiency. Greater saphenous vein(s) and tibial veins are patent. Normal compressibility. Impression: Negative for evidence of lower extremity deep venous thrombosis bilaterally
[2020-04-04] MEDS ORDERED: Warfarin Sod ORAL (16:55)
[2020-04-04] MEDS ORDERED: Warfarin Sodium 2.5mg ORAL SCH (17:00)
[2020-04-04] MEDS ORDERED: D5 1/2NS 1000ml IV ONE (18:09)
--- NOTE | 2020-04-04 18:13 | NUR ---
NURSE NOTES: Patient discharged home, instructions given, discussed with daughter Dahlia Shafer over the phone. Dtr made aware that Dr. Aldana will send e prescription of Warfarin to pharmacy indicated. Pt received today's dose of Coumadin. Also told daughter to schedule appt with Dr. Aldana for coumadin dosing in one week, provided with office address and telephone number. Dtr and patient verbalized understanding. Pt's vital stable, sats 95-97% on room air, no distress, no c/o of pain, skin intact. PIV removed and dressed. Belongings signed. Pt accompanied to lobby via wheelchair at left in private vehicle accompanied by family member at 6pm.
--- NOTE | 2020-04-09 16:04 | Discharge Summary ---
Discharge Summary Discharge Summary _ Date of admission: 03/25/2020 Date of discharge: 04/04/[address] Moore History of Present Illness and Brief Hospital Course Ms. Newell is a 69-year-old female with no reported past medical history who presented to the ED for evaluation of decreased appetite and back pain. Patient reported having pain in the right mid scapular region x1 day. Pain was exacerbated by bending and twisting motion and moving her arms. Chest x-ray was concerning for pneumonia. CT angio of chest revealed a right posterior basal segmental pulmonary embolus extending into the subsegmental pulmonary arteries without evidence of right heart strain. Bilateral thyroid nodules were also noted. Patient was treated with ceftriaxone and azithromycin for pneumonia coverage and was admitted to the hospital for further management. Given her fevers and leukocytosis, she was also started on empiric antibiotics. Patient tested negative for COVID-19 via PCR. Patient was started on full dose Lovenox for the acute pulmonary embolus. Patient continuedto have back pain which were controlled with pain medications. Hypercoagulation work-up was not indicated due to her age. Venous duplex ultrasound of legs were negative for DVT. Patient was later started on Coumadin and her INR was closely monitored. As her INR increased above 1.8, patient was medically ready for discharge. Patient was instructed to follow-up with Dr. Aldana for a follow-up upon discharge. Lovenox was discontinued before discharge. Patient was discharged home on 04/04/2020. Consultants: Cardiology Dr. Nolasco Pulmonology Dr. Alonzo Infectious disease Dr. Millan Hematology oncology Dr. Leach Discharge Condition Improved and stable Final diagnoses Acute right posterior basal segmental pulmonary embolus Pneumonia Hypokalemia Hypotension Anemia of chronic disease Leukocytosis Thrombocytosis Thyroid nodule Lymphopenia Acute respiratory distress I have been assigned to dictate discharge summary for this account. Denzel Villalta Apr 09, 2020 16:04
== END 2020-04-04 18:10 | disposition home or self-care (01) | DRG 139 ==
LOC: EMR 16:02 → 2E 17:34 → EDBEDREQ 17:55 → EDBEDREQSVC 17:56 → EDBEDREQ 17:56
DX: J18.9 Pneumonia, unspecified organism (principal); I26.99 Other pulmonary embolism without acute cor pulmonale; Z20.822 Contact with and (suspected) exposure to COVID-19; D63.8 Anemia in other chronic diseases classified elsewhere; D47.3 Essential (hemorrhagic) thrombocythemia; E87.6 Hypokalemia; I95.9 Hypotension, unspecified; R06.03 Acute respiratory distress; E04.1 Nontoxic single thyroid nodule
CPT/HCPCS: 36415; 71045; 71275; 80048; 80053; 81003; 82248; 82550; 82553; 82728; 83605; 83615; 83690; 83735; 83880; 84100; 84484; 85007; 85025; 85379; 85610; 85730; 86140; 86710; 87040; 87086; 93005; 93306; 93970; 96361; 96365; 96367; 96372; 99291; J7030; J8499